=== PATIENT | female | born 1945 | race Caucasian/White ===

== ENCOUNTER → 2016-09-29 | Outpatient (CLI) | payer MEDICARE ==
[2016-04-13 10:00] VITALS: BP 111/68
[~2016-09-29] MED LIST: ALBUTEROL SULFATE 8GM INHALER. INH ONE; BARIUM SULFATE 0.1% 450 ML SUSP PO ONE; BIFI4CAP PO; CALC500T27 PO; CEFP200T PO; CHOL100013 PO; CHOL500016 PO; FERR325T58 PO; FERR325T72 PO; GUAI12003 PO; INFL100V IV; LANS30CA PO; LISI-338 PO; LORA10TA3 PO; LOSA25TA4 PO; METH4TAB2 PO; RANI150T2 PO; VENTOLIN HFA18 GM INH; WARF6TAB PO
--- NOTE | 2016-09-29 11:59 | KCIC ---
PROCEDURE CT abdomen pelvis without contrast. HISTORY Crohn's. Abdominal pain. TECHNIQUE Helical CT imaging of the abdomen and pelvis is performed without IV or oral contrast. PQRS: One or more the following individualized dose reduction techniques were utilized for the study: 1. Automated exposure control. 2. Adjustment of the mA and/or kV according to patient size. 3. Use of iterative reconstruction technique. COMPARISON CT abdomen and pelvis without contrast February 10, 2015. FINDINGS Evaluation of solid organs and bowel is limited without oral and IV contrast, decreasing sensitivity for detection of pathology. Cardiac size normal. Mild mitral annular calcification. A few reticular nodular opacities are seen in the right middle lobe, stable. There are multiple sub 5 millimeter nodules in the bilateral lower lobes. These nodules are stable. Gallbladder likely surgically absent. The liver, spleen, pancreas, adrenal glands, and abdominal aortic caliber are normal. Atrophic left kidney. Multiple bilateral nonobstructing renal calculi. Two 10 millimeter calculi are seen in the right renal pelvis, unchanged. No ureteral calculus. No hydronephrosis. Multiple right renal cysts appear stable. Stomach unremarkable. No dilated small bowel. Several small bowel loops are fluid-filled. Short-segment rectosigmoid is underdistended or may be due to peristalsis, image 161. Descending colon is not well distended, limiting evaluation. 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 Enterocolic anastomosis at the proximal transverse colon. Ascending colon has been resected. No abdominal adenopathy or free fluid. Urinary bladder is normal. Uterus surgically absent. No pelvic free fluid. Unchanged bilateral L5 spondylolysis. Grade 2 anterolisthesis of L5 on S1. IMPRESSION 1. No acute abdominal or pelvic abnormality. 2. There are multiple sub 5 millimeter nodules in the bilateral lower lobes that are unchanged. Follow-up is recommended. 3. Atrophic left kidney. Multiple bilateral nonobstructing renal calculi. Right renal cysts. Electronically signed by: Francisco J Elias MD (Sep 29, 2016 11:58:03)
== END | disposition home or self-care (01) ==
LOC: KCIC CT 09:25
PROVIDERS: ATTEND Internal Medicine Gastroenterology
DX: R10.9 Unspecified abdominal pain (principal); Z87.19 Personal history of other diseases of the digestive system
CPT/HCPCS: 74176

== ENCOUNTER 2016-11-02 02:21 | Emergency (ER) | payer MEDICARE ==
[~2016-11-02] VITALS: Ht 165.1 cm; Wt 83.0 kg
[~2016-11-02 02:21] MED LIST changes: -ALBUTEROL SULFATE 8GM INHALER. INH ONE; -BARIUM SULFATE 0.1% 450 ML SUSP PO ONE
[2016-11-02] MEDS ORDERED: MORP15TA PO (04:37)
--- NOTE | 2016-11-02 04:37 | PHYS DOC ---
Past Medical History Past Medical History: Arthritis, Asthma, DVT, Other Additional Past Medical Histor: kidney stones; chrons; Past Surgical History: Cholecystectomy, Hysterectomy, Tonsillectomy, Tubal ligation, Other Additional Past Surgical Histo: bowel resections X 2 due to chrons; Alcohol Use: Rarely Drug Use: None Adult General Chief Complaint Chief Complaint: LOWER EXTREMITY SWELLING HPI HPI 70-year-old female presenting to the emergency department with right-sided leg pain. She reports it was initially in her calf and moved up to her groin. She has a history of DVTs and currently takes Coumadin. She has had a few episodes where she has not been taking Coumadin due to procedures. Onset 2-3 days. Location right leg. Duration intermittent. No alleviating factors. She denies any recent trauma. Review of systems is negative for chest pain shortness of breath nausea vomiting. All other review of systems is negative unless otherwise noted in history of present illness. Review of Systems Review of Systems SEE ABOVE. Allergies Allergies Allergies Coded Allergies Type Severity Reaction Last Updated Verified codeine Allergy Severe Shortness of Air 04/10/16 Yes oxycodone Allergy Severe soa 04/10/16 Yes Iodinated Contrast Media - Oral and Allergy Intermediate Rash 11/19/15 Yes Penicillins Allergy Intermediate rash 07/15/14 Yes Physical Exam Physical Exam Constitutional: Well developed, well nourished, no acute distress, non-toxic appearance. [] HENT: Normocephalic, atraumatic, bilateral external ears normal, oropharynx moist, no oral exudates, nose normal. [] Eyes: PERRLA, EOMI, conjunctiva normal, no discharge. [] Neck: Normal range of motion, no tenderness, supple, no stridor. [] Cardiovascular:Heart rate regular rhythm, no murmur [] Lungs & Thorax: Bilateral breath sounds clear to auscultation [] Abdomen: Bowel sounds normal, soft, no tenderness, no masses, no pulsatile masses. [] Skin: Warm, dry, no erythema, no rash. [] Back: No tenderness, no CVA tenderness. [] Extremities: The patient's right leg is warm and well perfused with a palpable pulse. Neurovascularly intact. Mild swelling of the right calf. Not erythematous. Mild tenderness in the venous system. Other extremities are nontender with normal range of motion. Neurologic: Alert and oriented X 3, normal motor function, normal sensory function, no focal deficits noted. [] Psychologic: Affect normal, judgement normal, mood normal. [] Current Patient Data Vital Signs Vital Signs Date Time Temp Pulse Resp B/P Pulse Ox O2 Delivery O2 Flow Rate FiO2 11/02/16 04:09 98.1 95 20 128/82 100 Room Air 98.1 EKG EKG [] Radiology/Procedures Radiology/Procedures [] Course & Med Decision Making Course & Med Decision Making Pertinent Labs and Imaging studies reviewed. (See chart for details) [] 62-year-old female presenting to the emergency department today with right leg pain. Blood work obtained. Ultrasound ordered. Possible small partial superficial femoral thrombus. Patient is already on warfarin. I recommended that the patient follow up with her primary care doctor to check her INR to ensure therapeutic regimen. Dragon Disclaimer Dragon Disclaimer This electronic medical record was generated, in whole or in part, using a voice recognition dictation system. Departure Departure Impression: Primary Impression: Right leg pain Disposition: HOME, SELF-CARE Condition: STABLE Referrals: KENZIE STERLING MD (PCP) Patient Instructions: Deep Vein Thrombosis Additional Instructions: Thank you for allowing us to participate in your care today. Followup with your primary care physician in 3 days if your symptoms do not improve. If you do not have a primary care provider you can ask for a list of our primary care providers. Return to the emergency department you have any new or concerning findings. This should be evaluated by the primary care physician and any necessary consulting services for continued management within a few days after discharge. Return to emergency room if you have any new or concerning symptoms including but not limited to fever, chills, nausea, vomiting, intractable pain, any new rashes, chest pain, shortness of air, uncontrolled bleeding, difficulty breathing, and/or vision loss. You may have been prescribed medication that can change in your level of thinking and ability to operate machinery. These medications include hydrocodone and Ativan. Also, Benadryl has been known to do this as well. Be sure to check with your pharmacist and ask if the medications you've prescribed can affect your level of consciousness. I recommend not operating heavy machinery or driving while on medication such as these. Scripts Morphine Sulfate 15 Mg Tablet1 Tab PO PRN Q6-8HRS PRN SEVERE PAIN #8 TAB Prov:NIMISHA GOODMAN MD 11/02/16 NIMISHA GOODMAN MD Nov 02, 2016 04:37
--- NOTE | 2016-11-02 04:58 | RAD ---
INDICATION: Leg swelling. History of deep vein thrombus. COMPARISON: None TECHNIQUE: Grayscale, color and spectral doppler ultrasound images are obtained through the right leg deep venous system. FINDINGS: Vascular flow is seen in the common femoral, popliteal and visualized calf veins. Partial thrombus of superficial femoral vein IMPRESSION: Small filling defect within the right superficial femoral vein with the majority of the vessel patent. This could be secondary to a small partial thrombus but is possible that this is old but cannot exclude small acute component without prior. Electronically signed by: Mario Quinteros (Nov 02, 2016 04:57:04)
[2016-11-02 05:00] VITALS: BP 105/54
== END 2016-11-02 05:23 | disposition home or self-care (01) ==
LOC: ER 02:21
DX: M79.604 Pain in right leg (principal); M19.90 Unspecified osteoarthritis, unspecified site; J45.909 Unspecified asthma, uncomplicated; K50.90 Crohn's disease, unspecified, without complications; Z86.718 Personal history of other venous thrombosis and embolism; Z87.442 Personal history of urinary calculi; Z90.49 Acquired absence of other specified parts of digestive tract; Z90.710 Acquired absence of both cervix and uterus; Z98.51 Tubal ligation status; Z98.890 Other specified postprocedural states; Z88.0 Allergy status to penicillin; Z88.5 Allergy status to narcotic agent; Z88.6 Allergy status to analgesic agent; Z91.041 Radiographic dye allergy status; Z79.01 Long term (current) use of anticoagulants
CPT/HCPCS: 93971; 99284-25

== ENCOUNTER 2016-11-10 14:34 | Inpatient (IN) | payer MEDICARE ==
[~2016-11-10] VITALS: Ht 165.1 cm; Wt 83.0 kg
[~2016-11-10 14:34] MED LIST changes: +MORP15TA PO
[2016-11-10] MEDS ORDERED: IV NORMAL SALINE 500ML BAG 500 ML IV ONE (15:15)
[2016-11-10 15:36] LABS: BASO % 0 % (0-3); EOS % 2 % (0-3); HEMATOCRIT 28.5 % (36.0-47.0); HEMOGLOBIN 9.2 g/dL (12.0-15.5); LYMPH # 2.4 x10^3/uL (1.0-4.8); LYMPH % 35 % (24-48); MEAN CORPUSCULAR HEMOGLOBIN 25 pg (25-35); MEAN CORPUSCULAR HGB CONC 32 g/dL (31-37); MEAN CORPUSCULAR VOLUME 78 fL (79-100); MONO % 7 % (0-9); NEUT % 57 % (31-73); PLATELET COUNT 343 x10^3/uL (140-400); RED BLOOD COUNT 3.68 x10^6/uL (3.50-5.40); RED CELL DISTRIBUTION WIDTH 15.1 % (11.5-14.5)
--- NOTE | 2016-11-10 15:47 | EKG ---
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
[2016-11-10 15:55] LABS: CALCIUM 8.5 mg/dL (8.5-10.1); CREATININE 2.2 mg/dL (0.6-1.0); GFR 22.2; POTASSIUM 4.5 mmol/L (3.5-5.1)
[2016-11-10 15:56] LABS: BILIRUBIN,URINE SMALL (NEG); GLUCOSE,URINE NEGATIVE (NEG); NITRITE,URINE NEGATIVE (NEG); PROTEIN,URINE NEGATIVE (NEG-TRACE)
[2016-11-10 16:01] LABS: ALBUMIN 2.8 g/dL (3.4-5.0); DIRECT BILIRUBIN 0.6 mg/dL (0.0-0.2); TOTAL BILIRUBIN 1.8 mg/dL (0.2-1.0); TOTAL PROTEIN 6.3 g/dL (6.4-8.2)
[2016-11-10 16:03] LABS: BACTERIA,URINE FEW /HPF (0-FEW); RBC,URINE >40 /HPF (0-2); SQUAMOUS EPITHELIAL CELL,UR MANY /LPF
--- NOTE | 2016-11-10 16:30 | PHYS DOC ---
Past Medical History Past Medical History: Arthritis, Asthma, DVT, Other Additional Past Medical Histor: kidney stones; chrons; Past Surgical History: Cholecystectomy, Hysterectomy, Tonsillectomy, Tubal ligation, Other Additional Past Surgical Histo: bowel resections X 2 due to chrons; Additional Information: quit 1997 Alcohol Use: Rarely Drug Use: None Adult General Chief Complaint Chief Complaint: ABDOMINAL PAIN HPI HPI 70-year-old female presenting to the emergency department today with abdominal pain that started yesterday. She describes it as a sharp pain that radiates around to the back. She describes it as a bandlike distribution. The pain is moderate and without alleviating factors. Associated with vomiting. She went to her doctor's office today who referred her here for further evaluation workup and care. She has a history of Crohn's disease and currently is being treated as an outpatient for partial small bowel obstruction including having a surgical consultation on Wednesday however over the past 24 hours her symptoms have gotten worse including vomiting fecal matter and worsening pain. She denies fevers or chills. Review of systems is negative for chest pain shortness of breath. Positive for nausea abdominal pain and vomitus. She denies blood in her stool. She is currently passing flatus. All other review of systems is negative unless otherwise noted in history of present illness. Review of Systems Review of Systems SEE ABOVE. Current Medications Current Medications Current Medications Medications (Trade) Dose Ordered Sig/Jazmin Start Time Stop Time Status Last Admin Dose Admin Sodium Chloride (Iv Sodium Chloride 0.9% 500ml Bag) 500 ml @ 500 mls/hr 1X ONCE 11/10/16 15:15 11/10/16 16:14 DC 11/10/16 15:46 500 MLS/HR Allergies Allergies Allergies Coded Allergies Type Severity Reaction Last Updated Verified codeine Allergy Severe Shortness of Air 04/10/16 Yes oxycodone Allergy Severe soa 04/10/16 Yes Iodinated Contrast Media - Oral and Allergy Intermediate Rash 11/19/15 Yes Penicillins Allergy Intermediate rash 07/15/14 Yes barium sulfate Allergy Intermediate hives 11/10/16 Yes Physical Exam Physical Exam Constitutional: Well developed, well nourished, no acute distress, non-toxic appearance. HENT: Normocephalic, atraumatic, bilateral external ears normal, oropharynx mildly dry, no oral exudates, nose normal. [] Eyes: PERRLA, EOMI, conjunctiva normal, no discharge. [] Neck: Normal range of motion, no tenderness, supple, no stridor. Cardiovascular:Heart rate regular rhythm, no murmur [] Lungs & Thorax: Bilateral breath sounds clear to auscultation Abdomen: Abdomen is soft and mildly distended. Mildly tympanic on percussion. Normal bowel sounds present. Mild tenderness without a focus. No rebound tenderness or guarding present. Skin: Warm, dry, no erythema, no rash. Back: No tenderness, no CVA tenderness. [] Extremities: No tenderness, no cyanosis, no clubbing, ROM intact, no edema. [] Neurologic: Alert and oriented X 3, normal motor function, normal sensory function, no focal deficits noted. Psychologic: Affect normal, judgement normal, mood normal. [] Current Patient Data Vital Signs Vital Signs Date Time Temp Pulse Resp B/P Pulse Ox O2 Delivery O2 Flow Rate FiO2 11/10/16 16:25 94 14 99/51 94 Room Air 11/10/16 14:44 97.7 97.7 Lab Values Laboratory Tests Test 11/10/16 15:25 11/10/16 15:30 White Blood Count 7.0x10^3/uL (4.0-11.0) Red Blood Count 3.68x10^6/uL (3.50-5.40) Hemoglobin 9.2g/dL (12.0-15.5) L Hematocrit 28.5% (36.0-47.0) L Mean Corpuscular Volume 78fL (79-100) L Mean Corpuscular Hemoglobin 25pg (25-35) Mean Corpuscular Hemoglobin Concent 32g/dL (31-37) Red Cell Distribution Width 15.1% (11.5-14.5) H Platelet Count 343x10^3/uL (140-400) Neutrophils (%) (Auto) 57% (31-73) Lymphocytes (%) (Auto) 35% (24-48) Monocytes (%) (Auto) 7% (0-9) Eosinophils (%) (Auto) 2% (0-3) Basophils (%) (Auto) 0% (0-3) Neutrophils # (Auto) 4.0x10^3uL (1.8-7.7) Lymphocytes # (Auto) 2.4x10^3/uL (1.0-4.8) Monocytes # (Auto) 0.5x10^3/uL (0.0-1.1) Eosinophils # (Auto) 0.1x10^3/uL (0.0-0.7) Basophils # (Auto) 0.0x10^3/uL (0.0-0.2) Sodium Level 140mmol/L (136-145) Potassium Level 4.5mmol/L (3.5-5.1) Chloride Level 105mmol/L (98-107) Carbon Dioxide Level 23mmol/L (21-32) Anion Gap 12 (6-14) Blood Urea Nitrogen 32mg/dL (7-20) H Creatinine 2.2mg/dL (0.6-1.0) H Estimated GFR (Cockcroft-Gault) 22.2 Glucose Level 108mg/dL (70-99) H Lactic Acid Level 1.0mmol/L (0.4-2.0) Calcium Level 8.5mg/dL (8.5-10.1) Total Bilirubin 1.8mg/dL (0.2-1.0) H Direct Bilirubin 0.6mg/dL (0.0-0.2) H Aspartate Amino Transferase (AST) 246U/L (15-37) H Alanine Aminotransferase (ALT) 319U/L (14-59) H Alkaline Phosphatase 583U/L (46-116) H Troponin I Quantitative < 0.017ng/mL (0.000-0.055) WX-Rmp-R-Type Natriuretic Peptide 231pg/mL (0-124) H Total Protein 6.3g/dL (6.4-8.2) L Albumin 2.8g/dL (3.4-5.0) L Lipase 477U/L (73-393) H Urine Collection Type Void Urine Color Dk yellow Urine Clarity Hazy Urine pH 5.0 Urine Specific Harrison 1.015 Urine Protein Negativemg/dL (NEG-TRACE) Urine Glucose (UA) Negativemg/dL (NEG) Urine Ketones (Stick) Tracemg/dL (NEG) Urine Blood Large (NEG) Urine Nitrite Negative (NEG) Urine Bilirubin Small (NEG) Urine Urobilinogen Dipstick 1.0mg/dL (0.2 mg/dL) Urine Leukocyte Esterase Small (NEG) Urine RBC >40/HPF (0-2) Urine WBC 1-4/HPF (0-4) Urine Squamous Epithelial Cells Many/LPF Urine Bacteria Few/HPF (0-FEW) Urine Hyaline Casts Occasional/HPF Urine Mucus Mod/LPF Laboratory Tests 11/10/16 15:25 Laboratory Tests 11/10/16 15:25 EKG EKG [] EKG shows sinus tachycardia. Not consistent with ischemia. Radiology/Procedures Radiology/Procedures [] Course & Med Decision Making Course & Med Decision Making Pertinent Labs and Imaging studies reviewed. (See chart for details) [] 62-year-old female presenting to the emergency department with signs and symptoms suggestive of a small bowel obstruction. Initially the patient's vital signs showed mild tachycardia. Clinically she had dry mucous membranes suggestive of dehydration from nausea and vomiting. IV established along with IV fluids given. Blood work obtained. CBC shows anemia. Urinalysis shows a contaminated specimen. Chemistry panel shows elevated creatinine AST is and alkaline phosphatase. Lactic acid within normal limits. CT the abdomen pelvis noncontrast was obtained. Elevated liver enzymes and elevated bilirubin with increased size of the common bile duct on CT. Patient is not febrile or jaundice. No evidence of stone obstructing the common bile duct. I discussed the case with Dr. Thibodeaux who agreed to consult on the patient. The patient was then admitted to her primary care doctor Dr. Quinteros for further evaluation workup and care. Dragon Disclaimer Dragon Disclaimer This electronic medical record was generated, in whole or in part, using a voice recognition dictation system. Departure Departure Impression: Primary Impression: Abdominal pain Additional Impressions: Transaminitis Elevated lipase Disposition: ADMITTED INPATIENT Admitting Physician: Jeffrey Quinteros Condition: IMPROVED Referrals: JEFFREY QUINTEROS MD (PCP) Problem Qualifiers Primary Impression: Abdominal pain Abdominal location: generalized Qualified Code: R10.84 - Generalized abdominal pain NIMISHA GOODMAN MD Nov 10, 2016 16:30
--- NOTE | 2016-11-10 16:33 | RAD ---
CT of the abdomen and pelvis with contrast, 11/10/2016: History: Abdominal pain and vomiting No IV contrast was administered due to the patient's given history of an iodine allergy. No oral contrast material was administered due to vomiting. Comparison is made to a study from 09/29/2016. The gallbladder is surgically absent. There is prominence of the central intrahepatic bile ducts and the common duct. The common bile duct measures 2 cm in width. The ducts appear to be more dilated than on 09/29/2016. No dense calculus is seen in the distal common bile duct. No pancreatic mass is evident. The spleen is of normal size. There are numerous bilateral intrarenal calculi. There is a prominent cluster within the right renal pelvis. The renal collecting systems and ureters are not dilated. Both kidneys are scarred and atrophic, more so on the left.. There is a cluster of low density lesions arising from the lateral aspect of the right kidney compatible with cysts. There is moderate aortoiliac calcific plaquing without evidence of aneurysm. No abdominal or pelvic adenopathy is seen. The stomach and duodenum are not dilated. There are segments of other small bowel loops which demonstrate mild dilatation. A focal point of obstruction is not seen. There is a moderate amount of fluid and stool in the colon in a nonspecific pattern. There appears to have been resection of a portion of the right colon. No free fluid or free air is evident in the abdomen or pelvis. IMPRESSION: 1. Status post cholecystectomy. 2. Dilatation of the common bile duct and intrahepatic bile ducts greater than that seen on 09/29/2016. Is there laboratory evidence of active biliary tract obstruction? 3. Numerous bilateral nonobstructing intrarenal calculi. 4. Mild dilatation of several small bowel segments likely related to the history of Crohn's disease. No definite bowel obstruction is seen. PQRS Compliance Statement: One or more of the following individualized dose reduction techniques were utilized for this examination: 1. Automated exposure control 2. Adjustment of the mA and/or kV according to patient size 3. Use of iterative reconstruction technique
[2016-11-10] MEDS ORDERED: ONDANSETRON PF 4 MG/2 ML VIAL. IV PRN (16:45)
[2016-11-10] MEDS: IV NORMAL SALINE 1000ML BAG 1,000 ML IV SCH (17:58)
[2016-11-10 18:37] VITALS: BP 98/50
--- NOTE | 2016-11-10 18:37 | PDOC2 ---
CONSULT Date of Consult Date of Consult DATE: 11/10/16 TIME: 18:36 Reason for Consult Reason for Consult: Abd pain/vomiting/crohns disease Current Problem List Problem List Problems Medical Problems: (1) Abdominal pain Status: Acute Current Medications Current Medications Current Medications Sodium Chloride (Iv Sodium Chloride 0.9% 500ml Bag) 500 ml @ 500 mls/hr 1X ONCE IV Last administered on 11/10/16 15:46; Start 11/10/16 at 15:15; Stop at 16:14; Status DC Ondansetron HCl 4 mg 4 mg PRN Q8HRS PRN IV NAUSEA/VOMITING; Start 11/10/16 at 16:45; Stop 11/11/16 at 16:44 Sodium Chloride (Iv Sodium Chloride 0.9% 1000ml Bag) 1,000 ml @ 125 mls/hr Q8H IV Last administered on 11/10/16 17:58; Start 11/10/16 at 17:00; Stop at 16:59 Active Scripts Active Morphine Sulfate 15 Mg Tablet 1 Tab PO PRN Q6-8HRS PRN Feosol (Ferrous Sulfate) 325 Mg Tablet 325 Mg PO BIDWMEALS Reported Losartan Potassium 25 Mg Tablet 25 Mg PO DAILY Calcium (Calcium Carbonate) 500 Mg Tablet 500 Mg PO DAILY Vitamin D3 (Cholecalciferol (Vitamin D3)) 5,000 Unit Tablet 1 Tab PO DAILY Ventolin Hfa Inhaler (Albuterol Sulfate) 18 Gm Hfa.aer.ad 2 Puff INH QID PRN Remicade (Infliximab) 100 Mg Vial 100 Mg IV UD TAKES EVERY OTHER MONTH Loratadine 10 Mg Tablet 1 Tab PO DAILY Ranitidine Hcl 150 Mg Tablet 1 Tab PO BID PRN Lansoprazole 30 Mg Capsule.dr 1 Cap PO DAILY Coumadin (Warfarin Sodium) 6 Mg Tablet 1 Tab PO DAILY Allergies Allergies: Coded Allergies: codeine (Verified Allergy, Severe, Shortness of Air, 04/10/16) tolerates morphine and hydrocodone oxycodone (Verified Allergy, Severe, soa, 04/10/16) tolerates morphine and hydrocodone Iodinated Contrast Media - Oral and (Verified Allergy, Intermediate, Rash , 11/19/15) Penicillins (Verified Allergy, Intermediate, rash, 07/15/14) barium sulfate (Verified Allergy, Intermediate, hives, 11/10/16) Vitals VITALS Vital Signs Date Time Temp Pulse Resp B/P Pulse Ox O2 Delivery O2 Flow Rate FiO2 11/10/16 18:16 Room Air 11/10/16 17:25 90 15 98/50 91 11/10/16 14:44 97.7 97.7 Labs Labs Laboratory Tests Test 11/10/16 15:25 11/10/16 15:30 White Blood Count 7.0x10^3/uL (4.0-11.0) Red Blood Count 3.68x10^6/uL (3.50-5.40) Hemoglobin 9.2g/dL (12.0-15.5) Hematocrit 28.5% (36.0-47.0) Mean Corpuscular Volume 78fL (79-100) Mean Corpuscular Hemoglobin 25pg (25-35) Mean Corpuscular Hemoglobin Concent 32g/dL (31-37) Red Cell Distribution Width 15.1% (11.5-14.5) Platelet Count 343x10^3/uL (140-400) Neutrophils (%) (Auto) 57% (31-73) Lymphocytes (%) (Auto) 35% (24-48) Monocytes (%) (Auto) 7% (0-9) Eosinophils (%) (Auto) 2% (0-3) Basophils (%) (Auto) 0% (0-3) Neutrophils # (Auto) 4.0x10^3uL (1.8-7.7) Lymphocytes # (Auto) 2.4x10^3/uL (1.0-4.8) Monocytes # (Auto) 0.5x10^3/uL (0.0-1.1) Eosinophils # (Auto) 0.1x10^3/uL (0.0-0.7) Basophils # (Auto) 0.0x10^3/uL (0.0-0.2) Sodium Level 140mmol/L (136-145) Potassium Level 4.5mmol/L (3.5-5.1) Chloride Level 105mmol/L (98-107) Carbon Dioxide Level 23mmol/L (21-32) Anion Gap 12 (6-14) Blood Urea Nitrogen 32mg/dL (7-20) Creatinine 2.2mg/dL (0.6-1.0) Estimated GFR (Cockcroft-Gault) 22.2 Glucose Level 108mg/dL (70-99) Lactic Acid Level 1.0mmol/L (0.4-2.0) Calcium Level 8.5mg/dL (8.5-10.1) Total Bilirubin 1.8mg/dL (0.2-1.0) Direct Bilirubin 0.6mg/dL (0.0-0.2) Aspartate Amino Transf (AST/SGOT) 246U/L (15-37) Alanine Aminotransferase (ALT/SGPT) 319U/L (14-59) Alkaline Phosphatase 583U/L (46-116) Troponin I Quantitative < 0.017ng/mL (0.000-0.055) YC-Bdl-V-Type Natriuretic Peptide 231pg/mL (0-124) Total Protein 6.3g/dL (6.4-8.2) Albumin 2.8g/dL (3.4-5.0) Lipase 477U/L (73-393) Urine Collection Type Void Urine Color Dk yellow Urine Clarity Hazy Urine pH 5.0 Urine Specific [place] 1.015 Urine Protein Negativemg/dL (NEG-TRACE) Urine Glucose (UA) Negativemg/dL (NEG) Urine Ketones (Stick) Tracemg/dL (NEG) Urine Blood Large (NEG) Urine Nitrite Negative (NEG) Urine Bilirubin Small (NEG) Urine Urobilinogen Dipstick 1.0mg/dL (0.2 mg/dL) Urine Leukocyte Esterase Small (NEG) Urine RBC >40/HPF (0-2) Urine WBC 1-4/HPF (0-4) Urine Squamous Epithelial Cells Many/LPF Urine Bacteria Few/HPF (0-FEW) Urine Hyaline Casts Occasional/HPF Urine Mucus Mod/LPF Laboratory Tests Test 11/10/16 15:25 11/10/16 15:30 White Blood Count 7.0x10^3/uL (4.0-11.0) Red Blood Count 3.68x10^6/uL (3.50-5.40) Hemoglobin 9.2g/dL (12.0-15.5) Hematocrit 28.5% (36.0-47.0) Mean Corpuscular Volume 78fL (79-100) Mean Corpuscular Hemoglobin 25pg (25-35) Mean Corpuscular Hemoglobin Concent 32g/dL (31-37) Red Cell Distribution Width 15.1% (11.5-14.5) Platelet Count 343x10^3/uL (140-400) Neutrophils (%) (Auto) 57% (31-73) Lymphocytes (%) (Auto) 35% (24-48) Monocytes (%) (Auto) 7% (0-9) Eosinophils (%) (Auto) 2% (0-3) Basophils (%) (Auto) 0% (0-3) Neutrophils # (Auto) 4.0x10^3uL (1.8-7.7) Lymphocytes # (Auto) 2.4x10^3/uL (1.0-4.8) Monocytes # (Auto) 0.5x10^3/uL (0.0-1.1) Eosinophils # (Auto) 0.1x10^3/uL (0.0-0.7) Basophils # (Auto) 0.0x10^3/uL (0.0-0.2) Sodium Level 140mmol/L (136-145) Potassium Level 4.5mmol/L (3.5-5.1) Chloride Level 105mmol/L (98-107) Carbon Dioxide Level 23mmol/L (21-32) Anion Gap 12 (6-14) Blood Urea Nitrogen 32mg/dL (7-20) Creatinine 2.2mg/dL (0.6-1.0) Estimated GFR (Cockcroft-Gault) 22.2 Glucose Level 108mg/dL (70-99) Lactic Acid Level 1.0mmol/L (0.4-2.0) Calcium Level 8.5mg/dL (8.5-10.1) Total Bilirubin 1.8mg/dL (0.2-1.0) Direct Bilirubin 0.6mg/dL (0.0-0.2) Aspartate Amino Transf (AST/SGOT) 246U/L (15-37) Alanine Aminotransferase (ALT/SGPT) 319U/L (14-59) Alkaline Phosphatase 583U/L (46-116) Troponin I Quantitative < 0.017ng/mL (0.000-0.055) KT-Qjs-M-Type Natriuretic Peptide 231pg/mL (0-124) Total Protein 6.3g/dL (6.4-8.2) Albumin 2.8g/dL (3.4-5.0) Lipase 477U/L (73-393) Urine Collection Type Void Urine Color Dk yellow Urine Clarity Hazy Urine pH 5.0 Urine Specific [place] 1.015 Urine Protein Negativemg/dL (NEG-TRACE) Urine Glucose (UA) Negativemg/dL (NEG) Urine Ketones (Stick) Tracemg/dL (NEG) Urine Blood Large (NEG) Urine Nitrite Negative (NEG) Urine Bilirubin Small (NEG) Urine Urobilinogen Dipstick 1.0mg/dL (0.2 mg/dL) Urine Leukocyte Esterase Small (NEG) Urine RBC >40/HPF (0-2) Urine WBC 1-4/HPF (0-4) Urine Squamous Epithelial Cells Many/LPF Urine Bacteria Few/HPF (0-FEW) Urine Hyaline Casts Occasional/HPF Urine Mucus Mod/LPF Assessment/Plan Assessment/Plan Abd pain- with hx of Crohns s/p resections x 2 and apparent stricture on recent colonoscopy, 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 Contrast allergy to iodine and barium makes imaging difficult Plan gut rest/iv fluids serial [facility] surgical consult Full note dictated TAMIKA HOBBS MD Nov 10, 2016 18:37
[2016-11-10 19:00] VITALS: BP 107/60
--- NOTE | 2016-11-10 19:35 | ACF ---
Admission Forms Criteria ABDOMINAL PAIN Clinical Indications for Admission to Inpatient Care (Place 'X' for any and all applicable criteria): Admission is indicated for ANY ONE of the following(1)(2)(3)(4)(5): [X]I. Inpatient admission required rather than observation care (Also use Abdominal Pain: Observation Care, as appropriate) because of ANY ONE of the following: [ ]a) Severe pain requiring acute inpatient management [ ]b) Identification of etiology/finding that requires inpatient care (eg, aortic dissection, free air) [ ]c) Absent bowel sounds with complete ileus(6) [ ]d) Suspected toxic megacolon [ ]e) Severe electrolyte abnormalities requiring inpatient care [ ]f) High fever or infection requiring inpatient admission as indicated by ANY ONE of following(7)(8): [ ] i) Appropriate outpatient or observational care antimicrobial treatment unavailable, not effective, or not feasible [ ] ii) Documented bacteremia [ ] iii) Temperature > 104.9 degrees F (oral) [ ] iv) T >103.1 F (oral) or < 96.8 F(rectal) that does not respond to all emergency treatment measures [ ]g) Signs of intestinal obstruction [B] [X]h) Hemodynamic instability [ ]i) IV fluid to replace significant ongoing losses (greater than 3 L/m2 per day) (12)(13) [ ]j) Percutaneous or open drainage (eg, abscess, biliary tract ) procedures [ ]k) Parenteral nutrition regimen that must be implemented on inpatient basis [ ]l) Other condition,treatment or monitoring requiring inpatient admission. [ ]II. Peritoneal signs present [ ]III. Surgery needed that cannot be performed on an ambulatory basis. [ ]IV. Evaluation requires patient to not eat or drink for extended period ( eg, more than 24 hours). [ ]V. Contraindications and/or Inappropriate clinical situations for Observational Care in patients with abdominal pain, when ANY ONE of the following is required: [ ]a) Thorough evaluation is required to prevent catastrophic events due to delays in diagnosing (e.g.Mesenteric ischemia) 1,3 [ ]b) Patient with severe pathology or with chronic symptoms unlikely to improve in the ED stay (3) [X]. General contraindications and/or Inappropriate clinical situations for Observational Care in patients with abdominal pain, when ANY ONE of the following is required: [X]a) Prediction of prolongation of LOS based on ANY ONE of the following may be considered as a contraindication for observational care 2, 3, 4, 5, 6, 7, 8, 9, 10, 11 [X]i) Age > 65 yrs. [ ]ii) Patient arriving by ambulance [ ]iii) Patient with high acuity [ ]iv) Patient requiring vital sign monitoring [ ]v) Patient on IV medication [ ]b) Systolic blood pressures 180mmHg 3,12 [ ]c) Patient with altered mental status including delirium and other alteration of consciousness, (3) [ ]d) Patient whose discharge disposition will be to a half-way home or rehabilitation home should not be managed in Emergency Department Observation Unit. CMS rule requires 3 days hospital stay before such placement.3,13 [ ]e) Patient with failure to thrive due to broad array of etiologies 3,16,17 [ ]f) Inability to ambulate 3,14 Extended stay beyond goal length of stay may be needed for(2)(3): [ ]a) Persistent abdominal pain with suspected intra-abdominal process [ ]b) Diagnosed condition requiring continued stay (e.g., pancreatitis, complicated diverticulitis) [ ]c) Surgery (e.g., colectomy) The original [facility] content created by [employer] has been revised. The portions of the content which have been revised are identified through the use of italic text or in bold, and [facility] has neither reviewed nor approved the modified material.All other unmodified content is copyright [employer]. Please see references footnoted in the original [facility] edition 2016 Admission Criteria Met?: Yes JESU BURNS Nov 10, 2016 19:35
[2016-11-10] MEDS ORDERED: MULT1TAB52 PO (21:58)
[2016-11-10] MEDS ORDERED: PROAIR HFA8.5 GM INH (21:58)
[2016-11-10] MEDS ORDERED: LANS30CA PO (21:58)
[2016-11-10] MEDS ORDERED: CYCL10TA2 PO (21:58)
[2016-11-10] MEDS ORDERED: MORPHINE SULFATE 4 MG/ML DISP.SYRIN. IV PRN (22:30)
[2016-11-10 23:00] VITALS: BP 95/40
[2016-11-11] MEDS: IV NORMAL SALINE 1000ML BAG 1,000 ML IV SCH (01:47)
[2016-11-11 03:00] VITALS: BP 96/58
[2016-11-11 06:25] LABS: BASO % 0 % (0-3); EOS % 5 % (0-3); HEMATOCRIT 24.8 % (36.0-47.0); HEMOGLOBIN 7.7 g/dL (12.0-15.5); LYMPH # 1.6 x10^3/uL (1.0-4.8); LYMPH % 47 % (24-48); MEAN CORPUSCULAR HEMOGLOBIN 25 pg (25-35); MEAN CORPUSCULAR HGB CONC 31 g/dL (31-37); MEAN CORPUSCULAR VOLUME 80 fL (79-100); MONO % 9 % (0-9); NEUT % 39 % (31-73); PLATELET COUNT 236 x10^3/uL (140-400); RED CELL DISTRIBUTION WIDTH 14.7 % (11.5-14.5); WHITE BLOOD COUNT 3.5 x10^3/uL (4.0-11.0)
[2016-11-11 06:49] LABS: ALBUMIN 2.3 g/dL (3.4-5.0); ALBUMIN/GLOBULIN RATIO 0.8 (1.0-1.7); CALCIUM 8.1 mg/dL (8.5-10.1); CREATININE 1.8 mg/dL (0.6-1.0); POTASSIUM 4.2 mmol/L (3.5-5.1); TOTAL BILIRUBIN 1.4 mg/dL (0.2-1.0); TOTAL PROTEIN 5.2 g/dL (6.4-8.2)
[2016-11-11 07:00] VITALS: BP 104/61
[2016-11-11] MEDS ORDERED: POTASSIUM CL 20MEQ D5-0.45NACL 1,000 ML IV PRN (08:15)
--- NOTE | 2016-11-11 08:25 | PDOC ---
Provider Note Provider Note [id number] KENZIE STERLING MD Nov 11, 2016 08:25
[2016-11-11] MEDS: POTASSIUM CL 20MEQ D5-0.45NACL 1,000 ML IV SCH ×2 (09:12→18:15)
[2016-11-11] MEDS: ENOXAPARIN 40 MG/0.4 ML SYRINGE. SQ SCH (09:13)
[2016-11-11] MEDS: POLYVINYL ALCOHOL 1.4% OPHTH SOLUTION 15ML BOTTLE. OU PRN (09:18)
[2016-11-11 09:37] LABS: INR 2.2 (0.8-1.1); PROTHROMBIN TIME PATIENT 22.9 SEC (11.7-14.0)
--- NOTE | 2016-11-11 09:49 | PDOC2 ---
DEAN GIMENEZ [facility] 11/11/16 0949: CONSULT Date of Consult Date of Consult DATE: 11/11/16 TIME: 09:42 Reason for Consult Reason for Consult: Crohns Referring Physician Referring Physician: Dr Quinteros Identification/Chief Complaint Chief Complaint abdominal pain Source Source: Chart review, Patient History of Present Illness Reason for Visit: Month history of abdominal pain, distention--hx of Crohns, has had 2 resections many years ago, on Remicade Underwent colonoscopy [address] Gonzalez and found to have a colonic stricture, was to meet with him Wednesday to arrange surgical evaluation. Wednesday night developed pain and emesis. She has been having constipation with pencil like stools(only going every few days instead of multiple times a day)--primary sent her for evaluation Past Medical History Cardiovascular: HTN Pulmonary: Asthma GI: Other (crohns) Heme/Onc: Other (dvt) Renal/: Other (kidney stones ) Past Surgical History Past Surgical History: Appendectomy, Cholecystectomy, , Hysterectomy, Colon Resection (x2) Family History Family History: Hypertension, Other (crohns ) Social History Quit (1997) ALCOHOL: social Drugs: None Current Problem List Problem List Problems Medical Problems: (1) Abdominal pain Status: Acute (2) Elevated lipase Status: Acute (3) Transaminitis Status: Acute Current Medications Current Medications Current Medications Sodium Chloride (Iv Sodium Chloride 0.9% 500ml Bag) 500 ml @ 500 mls/hr 1X ONCE IV Last administered on 11/10/16 15:46; Start 11/10/16 at 15:15; Stop at 16:14; Status DC Ondansetron HCl 4 mg 4 mg PRN Q8HRS PRN IV NAUSEA/VOMITING; Start 11/10/16 at 16:45; Stop 11/11/16 at 16:44 Sodium Chloride (Iv Sodium Chloride 0.9% 1000ml Bag) 1,000 ml @ 125 mls/hr Q8H IV Last administered on 11/11/16 01:47; Start 11/10/16 at 17:00; Stop at 08:35; Status DC Artificial Tears (Artificial Tears) 1 drop PRN Q15MIN PRN OU DRY EYE Last administered on 11/11/16 09:18; Start 11/10/16 at 22:30 Morphine Sulfate 3 mg 3 mg PRN Q3HRS PRN IV SEVERE PAIN; Start 11/10/16 at 22: 30 Potassium Chloride/Dextrose/ Sod Cl (KCl 20 Meq In D5W-1/2 NS) 1,000 ml @ 125 mls/hr Q8H PRN IV .; Start 11/11/16 at 08:15; Stop 11/11/16 at 08:35; Status DC Enoxaparin Sodium 40 mg 40 mg Q24H SQ Last administered on 11/11/16 09:13; Start 11/11/16 at 08:30 Potassium Chloride/Dextrose/ Sod Cl (KCl 20 Meq In D5W-1/2 NS) 1,000 ml @ 125 mls/hr Q8H IV Last administered on 11/11/16 09:12; Start 11/11/16 at 09:00 Active Scripts Active Reported Multivitamins (Multivitamin) 1 Each Tablet 1 Tab PO DAILY Cyclobenzaprine Hcl 10 Mg Tablet 1 Tab PO TID PRN Lansoprazole 30 Mg Capsule. 1 Cap PO DAILY Proair Hfa Inhaler (Albuterol Sulfate) 8.5 Gm Hfa.aer.ad 1 Puff INH PRN Q6HRS PRN Losartan Potassium 25 Mg Tablet 25 Mg PO DAILY Vitamin D3 (Cholecalciferol (Vitamin D3)) 5,000 Unit Tablet 1 Tab PO DAILY Remicade (Infliximab) 100 Mg Vial 100 Mg IV UD pt gets infusion every [address] Hoover's office, next dose is December 01, 2016 Lansoprazole 30 Mg Capsule. 1 Cap PO DAILY Coumadin (Warfarin Sodium) 6 Mg Tablet 1 Tab PO DAILY Allergies Allergies: Coded Allergies: codeine (Verified Allergy, Severe, Shortness of Air, 04/10/16) tolerates morphine and hydrocodone oxycodone (Verified Allergy, Severe, soa, 04/10/16) tolerates morphine and hydrocodone Iodinated Contrast Media - Oral and (Verified Allergy, Intermediate, Rash , 11/19/15) Penicillins (Verified Allergy, Intermediate, rash, 07/15/14) barium sulfate (Verified Allergy, Intermediate, hives, 11/10/16) ROS General: No: Chills, Other (fevers) PSYCHOLOGICAL ROS: No: Anxiety, Depression Eyes: No Blurry vision, No Double vision HEENT: No: Heacaches, Sore Throat Hematological and Lymphatic: YES: Bleeding Problems, Blood Clots Respiratory: No: Cough, Shortness of breath Cardiovascular: No Chest Pain, No Palpitations Gastrointestinal: Yes Other (see hpi) Genitourinary: No Dysuria, No Hematuria Musculoskeletal: No Joint Pain, No Muscle Pain Neurological: No Impaired Coord/balance, No Numbness/Tingling Skin: No Pruritus, No Rash Physical Exam General: Alert, Oriented X3, Cooperative, No acute distress HEENT: PERRLA, Mucous membr. moist/pink Lungs: Clear to auscultation, Normal air movement Heart: Regular rate, Normal S1, Normal S2, No murmurs Abdomen: Soft, Other (NTTP, ND, midline scar ) Extremities: No clubbing, No cyanosis Skin: No rashes, No breakdown Neuro: Normal gait, Normal speech Psych/Mental Status: Mental status NL, Mood NL Vitals VITALS Vital Signs Date Time Temp Pulse Resp B/P Pulse Ox O2 Delivery O2 Flow Rate FiO2 11/11/16 07:00 97.7 85 20 104/61 95 Room Air 97.7 Labs Labs Laboratory Tests Test 11/10/16 15:25 11/10/16 15:30 11/11/16 05:55 11/11/16 08:40 White Blood Count 7.0x10^3/uL (4.0-11.0) 3.5x10^3/uL (4.0-11.0) Red Blood Count 3.68x10^6/uL (3.50-5.40) 3.10x10^6/uL (3.50-5.40) Hemoglobin 9.2g/dL (12.0-15.5) 7.7g/dL (12.0-15.5) Hematocrit 28.5% (36.0-47.0) 24.8% (36.0-47.0) Mean Corpuscular Volume 78fL (79-100) 80fL (79-100) Mean Corpuscular Hemoglobin 25pg (25-35) 25pg (25-35) Mean Corpuscular Hemoglobin Concent 32g/dL (31-37) 31g/dL (31-37) Red Cell Distribution Width 15.1% (11.5-14.5) 14.7% (11.5-14.5) Platelet Count 343x10^3/uL (140-400) 236x10^3/uL (140-400) Neutrophils (%) (Auto) 57% (31-73) 39% (31-73) Lymphocytes (%) (Auto) 35% (24-48) 47% (24-48) Monocytes (%) (Auto) 7% (0-9) 9% (0-9) Eosinophils (%) (Auto) 2% (0-3) 5% (0-3) Basophils (%) (Auto) 0% (0-3) 0% (0-3) Neutrophils # (Auto) 4.0x10^3uL (1.8-7.7) 1.4x10^3uL (1.8-7.7) Lymphocytes # (Auto) 2.4x10^3/uL (1.0-4.8) 1.6x10^3/uL (1.0-4.8) Monocytes # (Auto) 0.5x10^3/uL (0.0-1.1) 0.3x10^3/uL (0.0-1.1) Eosinophils # (Auto) 0.1x10^3/uL (0.0-0.7) 0.2x10^3/uL (0.0-0.7) Basophils # (Auto) 0.0x10^3/uL (0.0-0.2) 0.0x10^3/uL (0.0-0.2) Sodium Level 140mmol/L (136-145) 142mmol/L (136-145) Potassium Level 4.5mmol/L (3.5-5.1) 4.2mmol/L (3.5-5.1) Chloride Level 105mmol/L (98-107) 111mmol/L (98-107) Carbon Dioxide Level 23mmol/L (21-32) 22mmol/L (21-32) Anion Gap 12 (6-14) 9 (6-14) Blood Urea Nitrogen 32mg/dL (7-20) 25mg/dL (7-20) Creatinine 2.2mg/dL (0.6-1.0) 1.8mg/dL (0.6-1.0) Estimated GFR (Cockcroft-Gault) 22.2 28.0 Glucose Level 108mg/dL (70-99) 85mg/dL (70-99) Lactic Acid Level 1.0mmol/L (0.4-2.0) Calcium Level 8.5mg/dL (8.5-10.1) 8.1mg/dL (8.5-10.1) Total Bilirubin 1.8mg/dL (0.2-1.0) 1.4mg/dL (0.2-1.0) Direct Bilirubin 0.6mg/dL (0.0-0.2) Aspartate Amino Transf (AST/SGOT) 246U/L (15-37) 139U/L (15-37) Alanine Aminotransferase (ALT/SGPT) 319U/L (14-59) 232U/L (14-59) Alkaline Phosphatase 583U/L (46-116) 474U/L (46-116) Troponin I Quantitative < 0.017ng/mL (0.000-0.055) MQ-Onv-R-Type Natriuretic Peptide 231pg/mL (0-124) Total Protein 6.3g/dL (6.4-8.2) 5.2g/dL (6.4-8.2) Albumin 2.8g/dL (3.4-5.0) 2.3g/dL (3.4-5.0) Lipase 477U/L (73-393) 104U/L (73-393) Urine Collection Type Void Urine Color Dk yellow Urine Clarity Hazy Urine pH 5.0 Urine Specific [place] 1.015 Urine Protein Negativemg/dL (NEG-TRACE) Urine Glucose (UA) Negativemg/dL (NEG) Urine Ketones (Stick) Tracemg/dL (NEG) Urine Blood Large (NEG) Urine Nitrite Negative (NEG) Urine Bilirubin Small (NEG) Urine Urobilinogen Dipstick 1.0mg/dL (0.2 mg/dL) Urine Leukocyte Esterase Small (NEG) Urine RBC >40/HPF (0-2) Urine WBC 1-4/HPF (0-4) Urine Squamous Epithelial Cells Many/LPF Urine Bacteria Few/HPF (0-FEW) Urine Hyaline Casts Occasional/HPF Urine Mucus Mod/LPF BUN/Creatinine Ratio 14 (6-20) Albumin/Globulin Ratio 0.8 (1.0-1.7) Amylase Level 58U/L (25-115) Prothrombin Time 22.9SEC (11.7-14.0) Prothromb Time International Ratio 2.2 (0.8-1.1) Laboratory Tests Test 11/10/16 15:25 11/10/16 15:30 11/11/16 05:55 11/11/16 08:40 White Blood Count 7.0x10^3/uL (4.0-11.0) 3.5x10^3/uL (4.0-11.0) Red Blood Count 3.68x10^6/uL (3.50-5.40) 3.10x10^6/uL (3.50-5.40) Hemoglobin 9.2g/dL (12.0-15.5) 7.7g/dL (12.0-15.5) Hematocrit 28.5% (36.0-47.0) 24.8% (36.0-47.0) Mean Corpuscular Volume 78fL (79-100) 80fL (79-100) Mean Corpuscular Hemoglobin 25pg (25-35) 25pg (25-35) Mean Corpuscular Hemoglobin Concent 32g/dL (31-37) 31g/dL (31-37) Red Cell Distribution Width 15.1% (11.5-14.5) 14.7% (11.5-14.5) Platelet Count 343x10^3/uL (140-400) 236x10^3/uL (140-400) Neutrophils (%) (Auto) 57% (31-73) 39% (31-73) Lymphocytes (%) (Auto) 35% (24-48) 47% (24-48) Monocytes (%) (Auto) 7% (0-9) 9% (0-9) Eosinophils (%) (Auto) 2% (0-3) 5% (0-3) Basophils (%) (Auto) 0% (0-3) 0% (0-3) Neutrophils # (Auto) 4.0x10^3uL (1.8-7.7) 1.4x10^3uL (1.8-7.7) Lymphocytes # (Auto) 2.4x10^3/uL (1.0-4.8) 1.6x10^3/uL (1.0-4.8) Monocytes # (Auto) 0.5x10^3/uL (0.0-1.1) 0.3x10^3/uL (0.0-1.1) Eosinophils # (Auto) 0.1x10^3/uL (0.0-0.7) 0.2x10^3/uL (0.0-0.7) Basophils # (Auto) 0.0x10^3/uL (0.0-0.2) 0.0x10^3/uL (0.0-0.2) Sodium Level 140mmol/L (136-145) 142mmol/L (136-145) Potassium Level 4.5mmol/L (3.5-5.1) 4.2mmol/L (3.5-5.1) Chloride Level 105mmol/L (98-107) 111mmol/L (98-107) Carbon Dioxide Level 23mmol/L (21-32) 22mmol/L (21-32) Anion Gap 12 (6-14) 9 (6-14) Blood Urea Nitrogen 32mg/dL (7-20) 25mg/dL (7-20) Creatinine 2.2mg/dL (0.6-1.0) 1.8mg/dL (0.6-1.0) Estimated GFR (Cockcroft-Gault) 22.2 28.0 Glucose Level 108mg/dL (70-99) 85mg/dL (70-99) Lactic Acid Level 1.0mmol/L (0.4-2.0) Calcium Level 8.5mg/dL (8.5-10.1) 8.1mg/dL (8.5-10.1) Total Bilirubin 1.8mg/dL (0.2-1.0) 1.4mg/dL (0.2-1.0) Direct Bilirubin 0.6mg/dL (0.0-0.2) Aspartate Amino Transf (AST/SGOT) 246U/L (15-37) 139U/L (15-37) Alanine Aminotransferase (ALT/SGPT) 319U/L (14-59) 232U/L (14-59) Alkaline Phosphatase 583U/L (46-116) 474U/L (46-116) Troponin I Quantitative < 0.017ng/mL (0.000-0.055) FS-Yug-J-Type Natriuretic Peptide 231pg/mL (0-124) Total Protein 6.3g/dL (6.4-8.2) 5.2g/dL (6.4-8.2) Albumin 2.8g/dL (3.4-5.0) 2.3g/dL (3.4-5.0) Lipase 477U/L (73-393) 104U/L (73-393) Urine Collection Type Void Urine Color Dk yellow Urine Clarity Hazy Urine pH 5.0 Urine Specific [place] 1.015 Urine Protein Negativemg/dL (NEG-TRACE) Urine Glucose (UA) Negativemg/dL (NEG) Urine Ketones (Stick) Tracemg/dL (NEG) Urine Blood Large (NEG) Urine Nitrite Negative (NEG) Urine Bilirubin Small (NEG) Urine Urobilinogen Dipstick 1.0mg/dL (0.2 mg/dL) Urine Leukocyte Esterase Small (NEG) Urine RBC >40/HPF (0-2) Urine WBC 1-4/HPF (0-4) Urine Squamous Epithelial Cells Many/LPF Urine Bacteria Few/HPF (0-FEW) Urine Hyaline Casts Occasional/HPF Urine Mucus Mod/LPF BUN/Creatinine Ratio 14 (6-20) Albumin/Globulin Ratio 0.8 (1.0-1.7) Amylase Level 58U/L (25-115) Prothrombin Time 22.9SEC (11.7-14.0) Prothromb Time International Ratio 2.2 (0.8-1.1) Assessment/Plan Assessment/Plan crohns, stricture on colonoscopy now with obstructive symptoms transaminitis, improving coagulopathy, warfarin induced, INR 2.2 , hx of DVT INR correction will review with Dr Ana PEDROZA,RANJANA Fenton MD 11/11/16 2010: CONSULT Allergies Allergies: Coded Allergies: codeine (Verified Allergy, Severe, Shortness of Air, 04/10/16) tolerates morphine and hydrocodone oxycodone (Verified Allergy, Severe, soa, 04/10/16) tolerates morphine and hydrocodone Iodinated Contrast Media - Oral and (Verified Allergy, Intermediate, Rash , 11/19/15) Penicillins (Verified Allergy, Intermediate, rash, 07/15/14) barium sulfate (Verified Allergy, Intermediate, hives, 11/10/16) Assessment/Plan Assessment/Plan Pt seen and examined. Agree with Ms. Gimenez's note Pt with c/o diffuse abd pain, currently controlled abd soft, mild diffuse TTP d/w GI-need W/u of CBD obstruction concern will follow concern for possible anastamotic stenosis Will follow for possible intervention Thanks for consult! DEAN GIMENEZ [employer] Nov 11, 2016 09:49 RANJANA PEDROZA MD Nov 11, 2016 20:10
--- NOTE | 2016-11-11 10:16 | RAD ---
Indication Crohn's. Nausea and vomiting. A single KUB was obtained. Note is made of a CT examination of the abdomen and pelvis yesterday. The abdominal gas pattern is nonobstructive. Bilateral renal calculi are noted with larger calculi, 3, in the right renal pelvis each measuring approximately 5 to 6 mm in greatest dimension. IMPRESSION: Nonobstructive gas pattern. Bilateral renal calculi noted.
[2016-11-11 10:59] VITALS: BP 110/65
--- NOTE | 2016-11-11 13:18 | PDOC ---
G I PROGRESS NOTE Reason for Follow-up Crohns disease with stricture/abnl biliary treee/rising LFTS Subjective Patient hungry Physical Exam Lungs clear CV S1 S2 ABD +BS, soft, mild distention Review of Relevant I have reviewed the following items katarzyna (where applicable) has been applied. Labs Laboratory Tests Test 11/10/16 15:25 11/10/16 15:30 11/11/16 05:55 11/11/16 08:40 White Blood Count 7.0x10^3/uL (4.0-11.0) 3.5x10^3/uL (4.0-11.0) Red Blood Count 3.68x10^6/uL (3.50-5.40) 3.10x10^6/uL (3.50-5.40) Hemoglobin 9.2g/dL (12.0-15.5) 7.7g/dL (12.0-15.5) Hematocrit 28.5% (36.0-47.0) 24.8% (36.0-47.0) Mean Corpuscular Volume 78fL (79-100) 80fL (79-100) Mean Corpuscular Hemoglobin 25pg (25-35) 25pg (25-35) Mean Corpuscular Hemoglobin Concent 32g/dL (31-37) 31g/dL (31-37) Red Cell Distribution Width 15.1% (11.5-14.5) 14.7% (11.5-14.5) Platelet Count 343x10^3/uL (140-400) 236x10^3/uL (140-400) Neutrophils (%) (Auto) 57% (31-73) 39% (31-73) Lymphocytes (%) (Auto) 35% (24-48) 47% (24-48) Monocytes (%) (Auto) 7% (0-9) 9% (0-9) Eosinophils (%) (Auto) 2% (0-3) 5% (0-3) Basophils (%) (Auto) 0% (0-3) 0% (0-3) Neutrophils # (Auto) 4.0x10^3uL (1.8-7.7) 1.4x10^3uL (1.8-7.7) Lymphocytes # (Auto) 2.4x10^3/uL (1.0-4.8) 1.6x10^3/uL (1.0-4.8) Monocytes # (Auto) 0.5x10^3/uL (0.0-1.1) 0.3x10^3/uL (0.0-1.1) Eosinophils # (Auto) 0.1x10^3/uL (0.0-0.7) 0.2x10^3/uL (0.0-0.7) Basophils # (Auto) 0.0x10^3/uL (0.0-0.2) 0.0x10^3/uL (0.0-0.2) Sodium Level 140mmol/L (136-145) 142mmol/L (136-145) Potassium Level 4.5mmol/L (3.5-5.1) 4.2mmol/L (3.5-5.1) Chloride Level 105mmol/L (98-107) 111mmol/L (98-107) Carbon Dioxide Level 23mmol/L (21-32) 22mmol/L (21-32) Anion Gap 12 (6-14) 9 (6-14) Blood Urea Nitrogen 32mg/dL (7-20) 25mg/dL (7-20) Creatinine 2.2mg/dL (0.6-1.0) 1.8mg/dL (0.6-1.0) Estimated GFR (Cockcroft-Gault) 22.2 28.0 Glucose Level 108mg/dL (70-99) 85mg/dL (70-99) Lactic Acid Level 1.0mmol/L (0.4-2.0) Calcium Level 8.5mg/dL (8.5-10.1) 8.1mg/dL (8.5-10.1) Total Bilirubin 1.8mg/dL (0.2-1.0) 1.4mg/dL (0.2-1.0) Direct Bilirubin 0.6mg/dL (0.0-0.2) Aspartate Amino Transf (AST/SGOT) 246U/L (15-37) 139U/L (15-37) Alanine Aminotransferase (ALT/SGPT) 319U/L (14-59) 232U/L (14-59) Alkaline Phosphatase 583U/L (46-116) 474U/L (46-116) Troponin I Quantitative < 0.017ng/mL (0.000-0.055) NL-Ssa-T-Type Natriuretic Peptide 231pg/mL (0-124) Total Protein 6.3g/dL (6.4-8.2) 5.2g/dL (6.4-8.2) Albumin 2.8g/dL (3.4-5.0) 2.3g/dL (3.4-5.0) Lipase 477U/L (73-393) 104U/L (73-393) Urine Collection Type Void Urine Color Dk yellow Urine Clarity Hazy Urine pH 5.0 Urine Specific [place] 1.015 Urine Protein Negativemg/dL (NEG-TRACE) Urine Glucose (UA) Negativemg/dL (NEG) Urine Ketones (Stick) Tracemg/dL (NEG) Urine Blood Large (NEG) Urine Nitrite Negative (NEG) Urine Bilirubin Small (NEG) Urine Urobilinogen Dipstick 1.0mg/dL (0.2 mg/dL) Urine Leukocyte Esterase Small (NEG) Urine RBC >40/HPF (0-2) Urine WBC 1-4/HPF (0-4) Urine Squamous Epithelial Cells Many/LPF Urine Bacteria Few/HPF (0-FEW) Urine Hyaline Casts Occasional/HPF Urine Mucus Mod/LPF BUN/Creatinine Ratio 14 (6-20) Albumin/Globulin Ratio 0.8 (1.0-1.7) Amylase Level 58U/L (25-115) Prothrombin Time 22.9SEC (11.7-14.0) Prothromb Time International Ratio 2.2 (0.8-1.1) Laboratory Tests Test 11/10/16 15:25 11/10/16 15:30 11/11/16 05:55 11/11/16 08:40 White Blood Count 7.0x10^3/uL (4.0-11.0) 3.5x10^3/uL (4.0-11.0) Red Blood Count 3.68x10^6/uL (3.50-5.40) 3.10x10^6/uL (3.50-5.40) Hemoglobin 9.2g/dL (12.0-15.5) 7.7g/dL (12.0-15.5) Hematocrit 28.5% (36.0-47.0) 24.8% (36.0-47.0) Mean Corpuscular Volume 78fL (79-100) 80fL (79-100) Mean Corpuscular Hemoglobin 25pg (25-35) 25pg (25-35) Mean Corpuscular Hemoglobin Concent 32g/dL (31-37) 31g/dL (31-37) Red Cell Distribution Width 15.1% (11.5-14.5) 14.7% (11.5-14.5) Platelet Count 343x10^3/uL (140-400) 236x10^3/uL (140-400) Neutrophils (%) (Auto) 57% (31-73) 39% (31-73) Lymphocytes (%) (Auto) 35% (24-48) 47% (24-48) Monocytes (%) (Auto) 7% (0-9) 9% (0-9) Eosinophils (%) (Auto) 2% (0-3) 5% (0-3) Basophils (%) (Auto) 0% (0-3) 0% (0-3) Neutrophils # (Auto) 4.0x10^3uL (1.8-7.7) 1.4x10^3uL (1.8-7.7) Lymphocytes # (Auto) 2.4x10^3/uL (1.0-4.8) 1.6x10^3/uL (1.0-4.8) Monocytes # (Auto) 0.5x10^3/uL (0.0-1.1) 0.3x10^3/uL (0.0-1.1) Eosinophils # (Auto) 0.1x10^3/uL (0.0-0.7) 0.2x10^3/uL (0.0-0.7) Basophils # (Auto) 0.0x10^3/uL (0.0-0.2) 0.0x10^3/uL (0.0-0.2) Sodium Level 140mmol/L (136-145) 142mmol/L (136-145) Potassium Level 4.5mmol/L (3.5-5.1) 4.2mmol/L (3.5-5.1) Chloride Level 105mmol/L (98-107) 111mmol/L (98-107) Carbon Dioxide Level 23mmol/L (21-32) 22mmol/L (21-32) Anion Gap 12 (6-14) 9 (6-14) Blood Urea Nitrogen 32mg/dL (7-20) 25mg/dL (7-20) Creatinine 2.2mg/dL (0.6-1.0) 1.8mg/dL (0.6-1.0) Estimated GFR (Cockcroft-Gault) 22.2 28.0 Glucose Level 108mg/dL (70-99) 85mg/dL (70-99) Lactic Acid Level 1.0mmol/L (0.4-2.0) Calcium Level 8.5mg/dL (8.5-10.1) 8.1mg/dL (8.5-10.1) Total Bilirubin 1.8mg/dL (0.2-1.0) 1.4mg/dL (0.2-1.0) Direct Bilirubin 0.6mg/dL (0.0-0.2) Aspartate Amino Transf (AST/SGOT) 246U/L (15-37) 139U/L (15-37) Alanine Aminotransferase (ALT/SGPT) 319U/L (14-59) 232U/L (14-59) Alkaline Phosphatase 583U/L (46-116) 474U/L (46-116) Troponin I Quantitative < 0.017ng/mL (0.000-0.055) PV-Pyg-Z-Type Natriuretic Peptide 231pg/mL (0-124) Total Protein 6.3g/dL (6.4-8.2) 5.2g/dL (6.4-8.2) Albumin 2.8g/dL (3.4-5.0) 2.3g/dL (3.4-5.0) Lipase 477U/L (73-393) 104U/L (73-393) Urine Collection Type Void Urine Color Dk yellow Urine Clarity Hazy Urine pH 5.0 Urine Specific [place] 1.015 Urine Protein Negativemg/dL (NEG-TRACE) Urine Glucose (UA) Negativemg/dL (NEG) Urine Ketones (Stick) Tracemg/dL (NEG) Urine Blood Large (NEG) Urine Nitrite Negative (NEG) Urine Bilirubin Small (NEG) Urine Urobilinogen Dipstick 1.0mg/dL (0.2 mg/dL) Urine Leukocyte Esterase Small (NEG) Urine RBC >40/HPF (0-2) Urine WBC 1-4/HPF (0-4) Urine Squamous Epithelial Cells Many/LPF Urine Bacteria Few/HPF (0-FEW) Urine Hyaline Casts Occasional/HPF Urine Mucus Mod/LPF BUN/Creatinine Ratio 14 (6-20) Albumin/Globulin Ratio 0.8 (1.0-1.7) Amylase Level 58U/L (25-115) Prothrombin Time 22.9SEC (11.7-14.0) Prothromb Time International Ratio 2.2 (0.8-1.1) Medications Current Medications Sodium Chloride (Iv Sodium Chloride 0.9% 500ml Bag) 500 ml @ 500 mls/hr 1X ONCE IV Last administered on 11/10/16 15:46; Start 11/10/16 at 15:15; Stop at 16:14; Status DC Ondansetron HCl 4 mg 4 mg PRN Q8HRS PRN IV NAUSEA/VOMITING; Start 11/10/16 at 16:45; Stop 11/11/16 at 16:44 Sodium Chloride (Iv Sodium Chloride 0.9% 1000ml Bag) 1,000 ml @ 125 mls/hr Q8H IV Last administered on 11/11/16 01:47; Start 11/10/16 at 17:00; Stop at 08:35; Status DC Artificial Tears (Artificial Tears) 1 drop PRN Q15MIN PRN OU DRY EYE Last administered on 11/11/16 09:18; Start 11/10/16 at 22:30 Morphine Sulfate 3 mg 3 mg PRN Q3HRS PRN IV SEVERE PAIN; Start 11/10/16 at 22: 30 Potassium Chloride/Dextrose/ Sod Cl (KCl 20 Meq In D5W-1/2 NS) 1,000 ml @ 125 mls/hr Q8H PRN IV .; Start 11/11/16 at 08:15; Stop 11/11/16 at 08:35; Status DC Enoxaparin Sodium 40 mg 40 mg Q24H SQ Last administered on 11/11/16 09:13; Start 11/11/16 at 08:30 Potassium Chloride/Dextrose/ Sod Cl (KCl 20 Meq In D5W-1/2 NS) 1,000 ml @ 125 mls/hr Q8H IV Last administered on 11/11/16 09:12; Start 11/11/16 at 09:00 Active Scripts Active Reported Multivitamins (Multivitamin) 1 Each Tablet 1 Tab PO DAILY Cyclobenzaprine Hcl 10 Mg Tablet 1 Tab PO TID PRN Lansoprazole 30 Mg Capsule. 1 Cap PO DAILY Proair Hfa Inhaler (Albuterol Sulfate) 8.5 Gm Hfa.aer.ad 1 Puff INH PRN Q6HRS PRN Losartan Potassium 25 Mg Tablet 25 Mg PO DAILY Vitamin D3 (Cholecalciferol (Vitamin D3)) 5,000 Unit Tablet 1 Tab PO DAILY Remicade (Infliximab) 100 Mg Vial 100 Mg IV UD pt gets infusion every [address] Hoover's office, next dose is December 01, 2016 Lansoprazole 30 Mg Capsule. 1 Cap PO DAILY Coumadin (Warfarin Sodium) 6 Mg Tablet 1 Tab PO DAILY Vitals/I & O Vital Sign - Last 24 Hours 11/10/16 11/10/16 11/10/16 11/10/16 14:44 14:55 15:43 15:58 Temp 97.7 97.7 Pulse 108 114 124 100 Resp 20 19 B/P 112/58 103/66 110/53 85/50 Pulse Ox 96 95 O2 Delivery Room Air Room Air 11/10/16 11/10/16 11/10/16 11/10/16 16:25 16:55 17:25 18:16 Pulse 94 96 90 Resp 14 18 15 B/P 99/51 98/50 Pulse Ox 94 94 91 O2 Delivery Room Air Room Air Room Air Room Air 11/10/16 11/10/16 11/10/16 11/11/16 18:37 19:00 23:00 03:00 Temp 97.7 97.7 98.4 97.8 97.7 97.7 98.4 97.8 Pulse 90 92 95 87 Resp 20 20 20 B/P 98/50 107/60 95/40 96/58 Pulse Ox 91 98 93 93 O2 Delivery Room Air Room Air Room Air Room Air 11/11/16 11/11/16 11/11/16 07:00 08:35 10:59 Temp 97.7 97.7 97.7 97.7 Pulse 85 89 Resp 20 20 B/P 104/61 110/65 Pulse Ox 95 99 O2 Delivery Room Air Room Air Room Air Intake and Output 11/10/16 11/10/16 11/11/16 15:00 23:00 07:00 Intake Total 500 ml 100 ml Balance 500 ml 100 ml Problem List Problems Medical Problems: (1) Abdominal pain Status: Acute (2) Elevated lipase Status: Acute (3) Transaminitis Status: Acute Assessment Crohns disease - stricture on colonoscopy, surgical input pending Abnl Ct scan biliary tree S/P neelima, increasing alk phos worrisome for retained stone, PSC, and/or malignancy await MRCP- possible ercp with brush cytology and/or liver biopsy may be needed TAMIKA HOBBS MD Nov 11, 2016 13:18
--- NOTE | 2016-11-11 13:54 | HP ---
ADMIT DATE: CHIEF COMPLAINT AND HISTORY OF PRESENT ILLNESS: A 70-year-old white female with abdominal pain. Two weeks ago went to ____, had a colonoscopy and was told she has some sort of colonic obstruction and likely will need surgery. She has had ____ vomiting over the last 2 days with lower abdominal pain and came in after CT scan showed some ileus and mild abnormalities in the liver function tests and abnormal on the lab work as well. She has had decreased stool output and decreased diarrhea most recently as well. ALLERGIES: SHE IS ALLERGIC TO PENICILLIN, BARIUM AND OXYCODONE. MEDICATIONS: She takes warfarin for previous recurrent DVT and also blood pressure meds. SOCIAL HISTORY: , not employed, nondrinker. FAMILY HISTORY: Unremarkable. REVIEW OF SYSTEMS: No other known problems. OBJECTIVE: ENT: All within normal limits except for mild pallor. NECK: Revealed no carotid bruits, nodes or thyroid enlargement. LUNGS: Clear. CARDIOVASCULAR: Regular rate. No tachycardia or murmur. ABDOMEN: Flat, soft, relatively benign. Bowel sounds mildly increased. No masses are felt. EXTREMITIES: Good pedal and radial pulses, no joint or skin lesions, right anterior thigh is tender consistent with recent quadriceps strain. NEUROLOGIC: Physiologic. ASSESSMENT: Recurrent vomiting and the patient with a known colonic obstruction likely stricture secondary to Crohn's disease. She has a history of hypercoagulability disorder and takes chronic warfarin as well as blood pressure medicines. PLAN: GI and surgical consultation, daily Lovenox prophylaxis, IV fluids and bowel rest. KENZIE STERLING MD DR: ANGELA/aster JOB#: [id number] / [id number]
[2016-11-11 14:54] VITALS: BP 108/70
[2016-11-11 19:00] VITALS: BP 97/53
--- NOTE | 2016-11-11 21:13 | CONS ---
DATE OF CONSULTATION: 11/10/2016 REASON FOR CONSULTATION: Crohn's, partial small-bowel obstruction, nausea and vomiting. HISTORY OF PRESENT ILLNESS: The patient is a 70-year-old female status post hysterectomy, cholecystectomy, tonsillectomy, tubal ligation, history of Crohn's resections x 2, arthritis, asthma, DVT, ____ therapy; however, colonoscopy prior by ____ several weeks ago, which apparently revealed colonic stricture. Surgical consultation was being arranged for possible resection. The patient noticed over the past 24 hours, ____. With continued symptoms, she then ____. She has had no flatus or gas or stool ____. SHE IS ALLERGIC TO MULTIPLE CONTRAST and CT scan which revealed mild dilatation of small bowel, moderate amount of fluid and stool in the colon as well as dilatation of the biliary tree with mild elevation of liver function tests. With these symptoms, she has been admitted for further evaluation. PAST MEDICAL HISTORY: Status post cholecystectomy, hysterectomy, tonsillectomy, tubal ligation, arthritis, asthma, DVT and Crohn's. ALLERGIES: IODINE, PENICILLIN, BARIUM, CODEINE AND OXYCODONE. MEDICATIONS: Presently include Zofran and Remicade as an outpatient. SOCIAL HISTORY: Does not drink or smoke. FAMILY HISTORY: Noncontributory. REVIEW OF SYSTEMS: Per records. PHYSICAL EXAMINATION: GENERAL: Reveals well-nourished, well-developed female. She is afebrile. VITAL SIGNS: Pulse 90, respirations 15, blood pressure is ____. HEENT: Normocephalic and atraumatic head. Pupils and extraocular muscles not tested. Sclerae anicteric. NECK: Supple. LUNGS: Clear. CARDIOVASCULAR: Reveals an S1, S2, without S3, S4 or appreciable murmur. ABDOMEN: Reveals soft with hyperactive bowel sounds, multiple surgical incisions with mild left lower quadrant ____ deep palpation. EXTREMITIES: Reveals no cyanosis, clubbing or edema. LABORATORY STUDIES: Hemoglobin 9.2, hematocrit 28.5. White count 7.0, platelet counts 343,000. Sodium 140, potassium 4.5, chloride 105, bicarbonate 23, BUN 32, creatinine 2.2, glucose is 108, calcium is 8.5, total bilirubin 1.8, direct bilirubin 0.6, AST ____, ALT 319, alkaline phosphatase of 583, total protein 6.3, albumin 2.8, lipase is ____. Beta natriuretic peptide is 231. IMPRESSION: Abdominal pain status post ____ as well as possible retained common duct stone and/or malignancy. We will recommend repeat liver enzymes as well as a KUB in the morning, amylase and lipase to further assess the symptoms, pending the surgical consultation, may be needed if the patient's symptoms more consistent with partial small-bowel obstruction versus cholangitis. I would like to thank, Dr. Quinteros for allowing us to consult and participate in the patient's care. TAMIKA HOBBS MD DR: MAINE/aster JOB#: [id number] / [id number]
[2016-11-11 22:37] VITALS: BP 114/61
[2016-11-12] MEDS: POTASSIUM CL 20MEQ D5-0.45NACL 1,000 ML IV SCH ×3 (01:52→17:00)
[2016-11-12 03:00] VITALS: BP 100/57
[2016-11-12 07:20] VITALS: BP 126/57
[2016-11-12] MEDS: POLYVINYL ALCOHOL 1.4% OPHTH SOLUTION 15ML BOTTLE. OU PRN (08:16)
[2016-11-12] MEDS: ENOXAPARIN 40 MG/0.4 ML SYRINGE. SQ SCH (08:30)
--- NOTE | 2016-11-12 09:03 | PDOC ---
Provider Note Provider Note vss, no temp or more emesis, renal better and TAs/bili lower also- mrcp report pending, for ercp today- surg consult done, off warf re pending op likely, daily italox KENZIE STERLING MD Nov 12, 2016 09:03
--- NOTE | 2016-11-12 09:53 | PDOC ---
DEAN LEMA DEXTRINE MIXER 11/12/16 0953: SURGICAL PROGRESS NOTE Subjective ERCP planned today having loose stools pain minimal today Vital Signs Vital Signs Date Time Temp Pulse Resp B/P Pulse Ox O2 Delivery O2 Flow Rate FiO2 11/12/16 09:00 Room Air 11/12/16 07:20 97.9 81 18 126/57 96 97.9 I&O Intake and Output 11/12/16 07:00 Intake Total 980 ml Output Total 3300 ml Balance -2320 ml Intake Oral 980 ml Output Urine Total 3300 ml General: Alert, Oriented X3, Cooperative, No acute distress Abdomen: Soft, No tenderness Labs Laboratory Tests Test 11/10/16 15:25 11/10/16 15:30 11/11/16 05:55 11/11/16 08:40 White Blood Count 7.0x10^3/uL (4.0-11.0) 3.5x10^3/uL (4.0-11.0) Red Blood Count 3.68x10^6/uL (3.50-5.40) 3.10x10^6/uL (3.50-5.40) Hemoglobin 9.2g/dL (12.0-15.5) 7.7g/dL (12.0-15.5) Hematocrit 28.5% (36.0-47.0) 24.8% (36.0-47.0) Mean Corpuscular Volume 78fL (79-100) 80fL (79-100) Mean Corpuscular Hemoglobin 25pg (25-35) 25pg (25-35) Mean Corpuscular Hemoglobin Concent 32g/dL (31-37) 31g/dL (31-37) Red Cell Distribution Width 15.1% (11.5-14.5) 14.7% (11.5-14.5) Platelet Count 343x10^3/uL (140-400) 236x10^3/uL (140-400) Neutrophils (%) (Auto) 57% (31-73) 39% (31-73) Lymphocytes (%) (Auto) 35% (24-48) 47% (24-48) Monocytes (%) (Auto) 7% (0-9) 9% (0-9) Eosinophils (%) (Auto) 2% (0-3) 5% (0-3) Basophils (%) (Auto) 0% (0-3) 0% (0-3) Neutrophils # (Auto) 4.0x10^3uL (1.8-7.7) 1.4x10^3uL (1.8-7.7) Lymphocytes # (Auto) 2.4x10^3/uL (1.0-4.8) 1.6x10^3/uL (1.0-4.8) Monocytes # (Auto) 0.5x10^3/uL (0.0-1.1) 0.3x10^3/uL (0.0-1.1) Eosinophils # (Auto) 0.1x10^3/uL (0.0-0.7) 0.2x10^3/uL (0.0-0.7) Basophils # (Auto) 0.0x10^3/uL (0.0-0.2) 0.0x10^3/uL (0.0-0.2) Sodium Level 140mmol/L (136-145) 142mmol/L (136-145) Potassium Level 4.5mmol/L (3.5-5.1) 4.2mmol/L (3.5-5.1) Chloride Level 105mmol/L (98-107) 111mmol/L (98-107) Carbon Dioxide Level 23mmol/L (21-32) 22mmol/L (21-32) Anion Gap 12 (6-14) 9 (6-14) Blood Urea Nitrogen 32mg/dL (7-20) 25mg/dL (7-20) Creatinine 2.2mg/dL (0.6-1.0) 1.8mg/dL (0.6-1.0) Estimated GFR (Cockcroft-Gault) 22.2 28.0 Glucose Level 108mg/dL (70-99) 85mg/dL (70-99) Lactic Acid Level 1.0mmol/L (0.4-2.0) Calcium Level 8.5mg/dL (8.5-10.1) 8.1mg/dL (8.5-10.1) Total Bilirubin 1.8mg/dL (0.2-1.0) 1.4mg/dL (0.2-1.0) Direct Bilirubin 0.6mg/dL (0.0-0.2) Aspartate Amino Transf (AST/SGOT) 246U/L (15-37) 139U/L (15-37) Alanine Aminotransferase (ALT/SGPT) 319U/L (14-59) 232U/L (14-59) Alkaline Phosphatase 583U/L (46-116) 474U/L (46-116) Troponin I Quantitative < 0.017ng/mL (0.000-0.055) LG-Yhg-D-Type Natriuretic Peptide 231pg/mL (0-124) Total Protein 6.3g/dL (6.4-8.2) 5.2g/dL (6.4-8.2) Albumin 2.8g/dL (3.4-5.0) 2.3g/dL (3.4-5.0) Lipase 477U/L (73-393) 104U/L (73-393) Urine Collection Type Void Urine Color Dk yellow Urine Clarity Hazy Urine pH 5.0 Urine Specific [place] 1.015 Urine Protein Negativemg/dL (NEG-TRACE) Urine Glucose (UA) Negativemg/dL (NEG) Urine Ketones (Stick) Tracemg/dL (NEG) Urine Blood Large (NEG) Urine Nitrite Negative (NEG) Urine Bilirubin Small (NEG) Urine Urobilinogen Dipstick 1.0mg/dL (0.2 mg/dL) Urine Leukocyte Esterase Small (NEG) Urine RBC >40/HPF (0-2) Urine WBC 1-4/HPF (0-4) Urine Squamous Epithelial Cells Many/LPF Urine Bacteria Few/HPF (0-FEW) Urine Hyaline Casts Occasional/HPF Urine Mucus Mod/LPF BUN/Creatinine Ratio 14 (6-20) Albumin/Globulin Ratio 0.8 (1.0-1.7) Amylase Level 58U/L (25-115) Prothrombin Time 22.9SEC (11.7-14.0) Prothromb Time International Ratio 2.2 (0.8-1.1) Problem List Problems Medical Problems: (1) Abdominal pain Status: Acute (2) Elevated lipase Status: Acute (3) Transaminitis Status: Acute Assessment/Plan ERPC planned, MRCP pending possible stricture, crohns will follow Problems: YOVANY,RANJANA J MD 11/12/16 1353: SURGICAL PROGRESS NOTE Assessment/Plan Pt out of room for ERCP cont w/u per GI Problems: DEAN LEMA DEXTRINE MIXER Nov 12, 2016 09:53 RANJANA PEDROZA MD Nov 12, 2016 13:53
--- NOTE | 2016-11-12 10:25 | RAD ---
MRCP, 11/11/2016: History: Abnormal liver function tests, inflammatory bowel disease Imaging was performed in axial and coronal planes utilizing a variety of imaging sequences including T2 weighted, fat suppressed T2 weighted and opposed phase gradient echo sequences. Heavily T2 weighted MRCP sequences were also performed with and without respiratory gating with 3-D MIP images reconstructed. The gallbladder is surgically absent. There is mild to moderate dilatation of the central intrahepatic bile ducts and the common bile duct. The common duct measures 18 mm in greatest width. The duct tapers normally within the pancreatic head at the ampulla. No focal stenosis is identified. No filling defect is seen in the duct to suggest a common duct calculus. The pancreatic duct is of normal caliber. The left kidney is atrophic. There are bilateral renal cysts, more numerous on the right. Multiple calculi are again noted in the right renal pelvis. IMPRESSION: 1. Status post cholecystectomy. 2. Dilatation of the central intrahepatic ducts and common bile duct without evidence of an obstructing calculus or mass.
[2016-11-12 10:55] LABS: INR 2.4 (0.8-1.1); PROTHROMBIN TIME PATIENT 24.3 SEC (11.7-14.0)
[2016-11-12 11:00] VITALS: BP 112/66
[2016-11-12] MEDS ORDERED: PHYTONADIONE 10 MG/ML AMPUL. SQ ONE (12:00)
[2016-11-12] MEDS ORDERED: IV RINGERS,LACTATED 1000ML 1,000 ML IV SCH ×2 (12:54→13:30)
[2016-11-12] MEDS ORDERED: LIDOCAINE 1% 1 ML SYRINGE. ID PRN (13:00)
[2016-11-12] MEDS ORDERED: FENTANYL PF 100 MCG/2 ML VIAL. IV PRN ×2 (13:00)
[2016-11-12] MEDS ORDERED: MIDAZOLAM HCL/PF 2 MG/2 ML VIAL. IV PRN (13:00)
[2016-11-12] MEDS ORDERED: PROPOFOL 20 ML IV ONE (13:54)
--- NOTE | 2016-11-12 14:21 | PDOC4 ---
Operative Note Operative Note EGD/attempted ERCP Meds propofol per anesthesia Pre-op dx dilated CBD/abnl LFTS/hx IBD post- op dx non-cannulated CBD/pancreatic duct due to deformity/angulation Plan advance diet ERCP/EUS at [facility] to further assess possible o/p image guided liver biopsy once off all anticoagulation TAMIKA HOBBS MD Nov 12, 2016 14:21
[2016-11-12 15:00] VITALS: BP 120/71
[2016-11-12] MEDS: PANTOPRAZOLE 40 MG TABLET.DR. PO SCH (16:41)
[2016-11-12 19:00] VITALS: BP 120/72
--- NOTE | 2016-11-12 20:04 | OP ---
DATE OF SURGERY: 11/12/2016 PROCEDURES PERFORMED: Attempted ERCP, esophagogastroduodenoscopy. MEDICATION RECEIVED: Propofol per Anesthesia. PREOPERATIVE DIAGNOSIS: Abnormal liver function test, dilated common bile duct, and abnormal CT scan. POSTOPERATIVE DIAGNOSIS: Nonerosive gastritis, normal esophagus, and marked deformity of the duodenum with noncannulation of the common bile duct and pancreatic duct due to the deformity. DESCRIPTION OF PROCEDURE: After the risks and benefits of procedure, including the risk of hemorrhage or perforation at the time of operation were discussed with the patient and family and informed consent was obtained, the patient was then placed in the prone position and a side-viewing endoscope was advanced through the esophagus, stomach, and first and second portions of the duodenum. No evidence of esophagitis, varices, or strictures was noted within the esophagus. Serial inspection of stomach, including retroflexion did reveal the nonerosive gastritis, the major papilla was identified; however, cannulation was not possible due to the marked angulation with either mena-tipped catheter or with a sphincterotome. The scope was then straightened and withdrawn. The patient tolerated the procedure well. DISPOSITION: Resume previous diet, meds, and activity. CONDITION: Stable. IMMUNIZATIONS: Up to date. PLAN: We will recommend that the patient advance her diet, hold all anticoagulation, and proceed with EUS/ERCP at [facility] at a later day with possible image-guided liver biopsy as well. This patient may be suffering from primary sclerosing cholangitis with her inflammatory bowel disease. I would like to thank Dr. Quinteros for allowing us to consult and participating in this patient's care. TAMIKA HOBBS MD DR: MAINE/aster JOB#: [id number] / [id number]
[2016-11-12 23:00] VITALS: BP 104/64
[2016-11-13] MEDS: POTASSIUM CL 20MEQ D5-0.45NACL 1,000 ML IV SCH (00:44)
[2016-11-13 03:00] VITALS: BP 122/74
[2016-11-13 07:00] VITALS: BP 125/69
[2016-11-13 07:12] LABS: BASO % 0 % (0-3); EOS % 4 % (0-3); HEMATOCRIT 25.3 % (36.0-47.0); HEMOGLOBIN 8.1 g/dL (12.0-15.5); LYMPH # 1.6 x10^3/uL (1.0-4.8); LYMPH % 42 % (24-48); MEAN CORPUSCULAR HEMOGLOBIN 25 pg (25-35); MEAN CORPUSCULAR HGB CONC 32 g/dL (31-37); MEAN CORPUSCULAR VOLUME 79 fL (79-100); MONO % 7 % (0-9); NEUT % 47 % (31-73); PLATELET COUNT 252 x10^3/uL (140-400); RED CELL DISTRIBUTION WIDTH 14.7 % (11.5-14.5); WHITE BLOOD COUNT 3.7 x10^3/uL (4.0-11.0)
[2016-11-13 07:20] LABS: INR 1.5 (0.8-1.1); PROTHROMBIN TIME PATIENT 17.4 SEC (11.7-14.0)
[2016-11-13 07:29] LABS: ALBUMIN 2.2 g/dL (3.4-5.0); ALBUMIN/GLOBULIN RATIO 0.7 (1.0-1.7); CREATININE 1.5 mg/dL (0.6-1.0); GFR 34.5; TOTAL BILIRUBIN 0.7 mg/dL (0.2-1.0); TOTAL PROTEIN 5.5 g/dL (6.4-8.2)
--- NOTE | 2016-11-13 07:55 | PDOC ---
Provider Note Provider Note vss, LFT/bili back to near normal, inr 1.5 off warf- feels better- will dc iv fluid, can dc once a plan in place for ?surgery etc as next step, but appears no fixed biliary lesion re mrcp/lab KENZIE STERLING MD Nov 13, 2016 07:55
[2016-11-13] MEDS: PANTOPRAZOLE 40 MG TABLET.DR. PO SCH (08:10)
[2016-11-13] MEDS: ENOXAPARIN 40 MG/0.4 ML SYRINGE. SQ SCH (08:11)
[2016-11-13 09:15] LABS: % BASOS 1 % (0-3); % EOS 4 % (0-5); PLT ESTIMATE ADEQUATE (ADEQUATE)
--- NOTE | 2016-11-13 09:38 | PDOC ---
SURGICAL PROGRESS NOTE Subjective no pain, tolerating diet usual bloating feeling no nausea or emesis Vital Signs Vital Signs Date Time Temp Pulse Resp B/P Pulse Ox O2 Delivery O2 Flow Rate FiO2 11/13/16 07:00 98.2 90 15 125/69 97 Room Air 98.2 11/12/16 14:25 2 I&O Intake and Output 11/13/16 07:00 Intake Total 3375 ml Output Total 1200 ml Balance 2175 ml Intake Oral 1875 ml Other 1500 ml Output Urine Total 1200 ml # Voids 4 General: Alert, Oriented X3, Cooperative, No acute distress Abdomen: Soft, No tenderness Labs Laboratory Tests Test 11/12/16 10:35 11/13/16 06:50 Prothrombin Time 24.3SEC (11.7-14.0) 17.4SEC (11.7-14.0) Prothromb Time International Ratio 2.4 (0.8-1.1) 1.5 (0.8-1.1) White Blood Count 3.7x10^3/uL (4.0-11.0) Red Blood Count 3.20x10^6/uL (3.50-5.40) Hemoglobin 8.1g/dL (12.0-15.5) Hematocrit 25.3% (36.0-47.0) Mean Corpuscular Volume 79fL (79-100) Mean Corpuscular Hemoglobin 25pg (25-35) Mean Corpuscular Hemoglobin Concent 32g/dL (31-37) Red Cell Distribution Width 14.7% (11.5-14.5) Platelet Count 252x10^3/uL (140-400) Neutrophils (%) (Auto) 47% (31-73) Lymphocytes (%) (Auto) 42% (24-48) Monocytes (%) (Auto) 7% (0-9) Eosinophils (%) (Auto) 4% (0-3) Basophils (%) (Auto) 0% (0-3) Neutrophils # (Auto) 1.7x10^3uL (1.8-7.7) Lymphocytes # (Auto) 1.6x10^3/uL (1.0-4.8) Monocytes # (Auto) 0.3x10^3/uL (0.0-1.1) Eosinophils # (Auto) 0.1x10^3/uL (0.0-0.7) Basophils # (Auto) 0.0x10^3/uL (0.0-0.2) Segmented Neutrophils % 44% (35-66) Band Neutrophils % 3% (0-9) Lymphocytes % 46% (24-48) Monocytes % 2% (0-10) Eosinophils % 4% (0-5) Basophils % 1% (0-3) Platelet Estimate Adequate (ADEQUATE) Sodium Level 143mmol/L (136-145) Potassium Level 4.0mmol/L (3.5-5.1) Chloride Level 113mmol/L (98-107) Carbon Dioxide Level 21mmol/L (21-32) Anion Gap 9 (6-14) Blood Urea Nitrogen 11mg/dL (7-20) Creatinine 1.5mg/dL (0.6-1.0) Estimated GFR (Cockcroft-Gault) 34.5 BUN/Creatinine Ratio 7 (6-20) Glucose Level 111mg/dL (70-99) Calcium Level 8.0mg/dL (8.5-10.1) Total Bilirubin 0.7mg/dL (0.2-1.0) Aspartate Amino Transf (AST/SGOT) 31U/L (15-37) Alanine Aminotransferase (ALT/SGPT) 127U/L (14-59) Alkaline Phosphatase 345U/L (46-116) Total Protein 5.5g/dL (6.4-8.2) Albumin 2.2g/dL (3.4-5.0) Albumin/Globulin Ratio 0.7 (1.0-1.7) Amylase Level 58U/L (25-115) Lipase 177U/L (73-393) Laboratory Tests Test 11/12/16 10:35 11/13/16 06:50 Prothrombin Time 24.3SEC (11.7-14.0) 17.4SEC (11.7-14.0) Prothromb Time International Ratio 2.4 (0.8-1.1) 1.5 (0.8-1.1) White Blood Count 3.7x10^3/uL (4.0-11.0) Red Blood Count 3.20x10^6/uL (3.50-5.40) Hemoglobin 8.1g/dL (12.0-15.5) Hematocrit 25.3% (36.0-47.0) Mean Corpuscular Volume 79fL (79-100) Mean Corpuscular Hemoglobin 25pg (25-35) Mean Corpuscular Hemoglobin Concent 32g/dL (31-37) Red Cell Distribution Width 14.7% (11.5-14.5) Platelet Count 252x10^3/uL (140-400) Neutrophils (%) (Auto) 47% (31-73) Lymphocytes (%) (Auto) 42% (24-48) Monocytes (%) (Auto) 7% (0-9) Eosinophils (%) (Auto) 4% (0-3) Basophils (%) (Auto) 0% (0-3) Neutrophils # (Auto) 1.7x10^3uL (1.8-7.7) Lymphocytes # (Auto) 1.6x10^3/uL (1.0-4.8) Monocytes # (Auto) 0.3x10^3/uL (0.0-1.1) Eosinophils # (Auto) 0.1x10^3/uL (0.0-0.7) Basophils # (Auto) 0.0x10^3/uL (0.0-0.2) Segmented Neutrophils % 44% (35-66) Band Neutrophils % 3% (0-9) Lymphocytes % 46% (24-48) Monocytes % 2% (0-10) Eosinophils % 4% (0-5) Basophils % 1% (0-3) Platelet Estimate Adequate (ADEQUATE) Sodium Level 143mmol/L (136-145) Potassium Level 4.0mmol/L (3.5-5.1) Chloride Level 113mmol/L (98-107) Carbon Dioxide Level 21mmol/L (21-32) Anion Gap 9 (6-14) Blood Urea Nitrogen 11mg/dL (7-20) Creatinine 1.5mg/dL (0.6-1.0) Estimated GFR (Cockcroft-Gault) 34.5 BUN/Creatinine Ratio 7 (6-20) Glucose Level 111mg/dL (70-99) Calcium Level 8.0mg/dL (8.5-10.1) Total Bilirubin 0.7mg/dL (0.2-1.0) Aspartate Amino Transf (AST/SGOT) 31U/L (15-37) Alanine Aminotransferase (ALT/SGPT) 127U/L (14-59) Alkaline Phosphatase 345U/L (46-116) Total Protein 5.5g/dL (6.4-8.2) Albumin 2.2g/dL (3.4-5.0) Albumin/Globulin Ratio 0.7 (1.0-1.7) Amylase Level 58U/L (25-115) Lipase 177U/L (73-393) Problem List Problems Medical Problems: (1) Abdominal pain Status: Acute (2) Elevated lipase Status: Acute (3) Transaminitis Status: Acute Assessment/Plan reviewed ERCP--non-cannulated CBD/pancreatic, needs [facility] FU for ERCP vs EUS, liver biopsy can FU in clinic with Dr Perez after testing complete--will leave contact information Problems: DEAN LEMA APRN Nov 13, 2016 09:38
--- NOTE | 2016-11-13 09:51 | PDOC ---
Subjective: Subjective: No pain, eating, stooling. Some bloating. Wants to DC. Objective: Vital Signs: Vital Signs Date Time Temp Pulse Resp B/P Pulse Ox O2 Delivery O2 Flow Rate FiO2 11/13/16 07:00 98.2 90 15 125/69 97 Room Air 98.2 11/12/16 14:25 2 Labs: Laboratory Tests Test 11/12/16 10:35 11/13/16 06:50 Prothrombin Time 24.3SEC 17.4SEC Prothromb Time International Ratio 2.4 1.5 White Blood Count 3.7x10^3/uL Red Blood Count 3.20x10^6/uL Hemoglobin 8.1g/dL Hematocrit 25.3% Mean Corpuscular Volume 79fL Mean Corpuscular Hemoglobin 25pg Mean Corpuscular Hemoglobin Concent 32g/dL Red Cell Distribution Width 14.7% Platelet Count 252x10^3/uL Neutrophils (%) (Auto) 47% Lymphocytes (%) (Auto) 42% Monocytes (%) (Auto) 7% Eosinophils (%) (Auto) 4% Basophils (%) (Auto) 0% Neutrophils # (Auto) 1.7x10^3uL Lymphocytes # (Auto) 1.6x10^3/uL Monocytes # (Auto) 0.3x10^3/uL Eosinophils # (Auto) 0.1x10^3/uL Basophils # (Auto) 0.0x10^3/uL Segmented Neutrophils % 44% Band Neutrophils % 3% Lymphocytes % 46% Monocytes % 2% Eosinophils % 4% Basophils % 1% Platelet Estimate Adequate Sodium Level 143mmol/L Potassium Level 4.0mmol/L Chloride Level 113mmol/L Carbon Dioxide Level 21mmol/L Anion Gap 9 Blood Urea Nitrogen 11mg/dL Creatinine 1.5mg/dL Estimated GFR (Cockcroft-Gault) 34.5 BUN/Creatinine Ratio 7 Glucose Level 111mg/dL Calcium Level 8.0mg/dL Total Bilirubin 0.7mg/dL Aspartate Amino Transf (AST/SGOT) 31U/L Alanine Aminotransferase (ALT/SGPT) 127U/L Alkaline Phosphatase 345U/L Total Protein 5.5g/dL Albumin 2.2g/dL Albumin/Globulin Ratio 0.7 Amylase Level 58U/L Lipase 177U/L PE: GEN: NAD, walking around room LUNGS: CTAB HEART: RRR ABD: S/NT NEURO/PSYCH: A & O 3 A/P: Dilated CBD, abnormal LFTs -ERCP 11/12/16: non-cannulated CBD/pancreatic duct due to deformity/angulation H/o Crohn's w/ stricture -- Recommend ERCP/EUS at for further workup. D/w RN. Note plans to f/u w/ surgery after. MAI CURRY Nov 13, 2016 09:51
[2016-11-13 11:39] VITALS: BP 124/74
--- NOTE | 2016-11-13 20:54 | DS ---
DATE OF DISCHARGE: 11/13/2016 ADMIT DATE: 11/11/2016. HOSPITAL SUMMARY: A 70-year-old white female with Crohn's disease who has been having recurrent abdominal pain, came in with increased nausea, vomiting and feculent emesis. She has been told by , her GI doctor that she may need a colon surgery for possible stricture. CT scan did not show obvious obstruction, but there was common bile duct dilation. MRCP showed no specific lesions in the common bile duct. ERCP could not be done technically because of ampullary narrowing. Liver function tests and bilirubin were mildly elevated on admission and fairly rapidly came down to normal without any more treatment other than bowel rest. She was given IV fluids and comfort care and tests as above were done. Her INR has gone down to 1.5 off warfarin and she is feeling better. She is comfortable to go home and be followed as an outpatient at this point. FINAL DIAGNOSES: 1. Partial small-bowel obstruction, resolved. 2. Transient cholangitis, etiology undetermined. OPERATIONS, PROCEDURES, COMPLICATIONS: None. CONSULTATIONS: Dr. Kaminski, Dr. Perez. DISPOSITION: Dr. Kaminski will arrange endoscopic ultrasound at or [facility] because of the concern of pathology in the common bile duct or ampulla. She will see Dr. Perez after that is accomplished to discuss the need for colonic surgery but at this point, there appears to be no clear obstruction. She will resume her warfarin and other meds all the same for now. Continue her Humira infusions for Crohn's. I will see her on a p.r.n. basis for any further problems. KENZIE STERLING MD DR: ANGELA/aster JOB#: [id number] / [id number]
== END 2016-11-13 13:30 | disposition home or self-care (01) | DRG 386 ==
LOC: ER 14:34 → 5 SOUTH 16:40
PROVIDERS: ADMIT Family Medicine; ATTEND Family Medicine
PROC: 0DJ08ZZ Inspection of Upper Intestinal Tract, Via Natural or Artificial Opening Endoscopic (ICD-10-PCS; principal; 2016-11-12 14:00)
DX: K50.012 Crohn's disease of small intestine with intestinal obstruction (principal); K83.0 Cholangitis; E44.1 Mild protein-calorie malnutrition; M19.90 Unspecified osteoarthritis, unspecified site; K29.70 Gastritis, unspecified, without bleeding; J45.909 Unspecified asthma, uncomplicated; Z79.01 Long term (current) use of anticoagulants; Z82.49 Family history of ischemic heart disease and other diseases of the circulatory system; Z86.718 Personal history of other venous thrombosis and embolism; Z87.442 Personal history of urinary calculi; Z90.49 Acquired absence of other specified parts of digestive tract; Z90.710 Acquired absence of both cervix and uterus; Z91.041 Radiographic dye allergy status; Z88.0 Allergy status to penicillin; Z88.8 Allergy status to other drugs, medicaments and biological substances; Z88.5 Allergy status to narcotic agent; Z88.2 Allergy status to sulfonamides; K31.89 Other diseases of stomach and duodenum; I12.9 Hypertensive chronic kidney disease with stage 1 through stage 4 chronic kidney disease, or unspecified chronic kidney disease; N18.3 Chronic kidney disease, stage 3 (moderate)
CPT/HCPCS: 36415; 74000; 74176; 74181; 74328; 80048; 80053; 80076; 81001; 82150; 83605; 83690; 83880; 84484; 85007; 85027; 85610; 87086; 93005; 96360; C1713; C1757; J1650; J2270; J2704; J3430; J7030; J7040; J7120; 99285-25

== ENCOUNTER 2016-12-07 08:53 | Inpatient (IN) | payer MEDICARE ==
[~2016-12-07] VITALS: Ht 165.1 cm; Wt 81.6 kg
[~2016-12-07 08:53] MED LIST changes: +CYCL10TA2 PO; +MULT1TAB52 PO; +PROAIR HFA8.5 GM INH; -WARF6TAB PO; +WARF6TAB49 PO
[2016-12-07] MEDS ORDERED: KETOROLAC TROMETHAMINE 30 MG/ML INJ. IV ONE (09:15)
[2016-12-07] MEDS ORDERED: fentaNYL PF VIAL 100 MCG/2 ML VIAL IV ONE ×2 (09:15→10:45)
--- NOTE | 2016-12-07 09:20 | PHYS DOC ---
Past Medical History Past Medical History: Arthritis, Asthma, DVT, Other Additional Past Medical Histor: kidney stones; chrons; Past Surgical History: Cholecystectomy, Hysterectomy, Tonsillectomy, Tubal ligation, Other Additional Past Surgical Histo: bowel resections X 2 due to chrons; Alcohol Use: Rarely Drug Use: None Adult General Chief Complaint Chief Complaint: FLANK PAIN [facility] HPI Patient is a 71 year old female presenting to the emergency department for evaluation of left flank pain that started last night around 6 PM and has persisted. Sharp and sudden in onset and causes her to have some nausea but no vomiting fevers chills dysuria or hematuria. She reports multiple episodes of kidney stones in the past one of which required intervention with Dr. Abreu. Most of her stones have passed on their own. Patient is in no obvious distress but appears uncomfortable. Review of Systems Review of Systems Constitutional: Denies fever or chills [] Eyes: Denies change in visual acuity, redness, or eye pain [] HENT: Denies nasal congestion or sore throat [] Respiratory: Denies cough or shortness of breath [] Cardiovascular: No additional information not addressed in HPI [] GI: Denies abdominal pain. + nausea. No vomiting, bloody stools or diarrhea [] : Denies dysuria or hematuria [] Musculoskeletal: + back pain. No joint pain [] Integument: Denies rash or skin lesions [] Neurologic: Denies headache, focal weakness or sensory changes [] Current Medications Current Medications Current Medications Medications (Trade) Dose Ordered Sig/Jazmin Start Time Stop Time Status Last Admin Dose Admin Fentanyl Citrate (Fentanyl 2ml Vial) 75 mcg 1X ONCE 12/07/16 10:45 12/07/16 10:46 DC 12/07/16 10:38 75 MCG Ketorolac Tromethamine (Toradol) 15 mg 1X ONCE 12/07/16 09:15 12/07/16 09:16 DC 12/07/16 09:34 15 MG Allergies Allergies Allergies Coded Allergies Type Severity Reaction Last Updated Verified codeine Allergy Severe Shortness of Air 11/12/16 Yes oxycodone Allergy Severe soa 11/12/16 Yes Iodinated Contrast Media - Oral and Allergy Intermediate Rash 11/12/16 Yes Penicillins Allergy Intermediate rash 11/12/16 Yes barium sulfate Allergy Intermediate hives 11/12/16 Yes Physical Exam Physical Exam Constitutional: Well developed, well nourished, no acute distress, non-toxic appearance. [] HENT: Normocephalic, atraumatic, bilateral external ears normal, oropharynx moist, no oral exudates, nose normal. [] Eyes: PERRLA, EOMI, conjunctiva normal, no discharge. [] Neck: Normal range of motion, no tenderness, supple, no stridor. [] Cardiovascular:Heart rate regular rhythm, no murmur [] Lungs & Thorax: Bilateral breath sounds clear to auscultation [] Abdomen: Bowel sounds normal, soft, no tenderness, no masses, no pulsatile masses. [] Skin: Warm, dry, no erythema, no rash. [] Back: No tenderness, + L CVA tenderness. [] Extremities: No tenderness, no cyanosis, no clubbing, ROM intact, no edema. [] Neurologic: Alert and oriented X 3, normal motor function, normal sensory function, no focal deficits noted. [] Current Patient Data Vital Signs Vital Signs Date Time Temp Pulse Resp B/P (MAP) Pulse Ox O2 Delivery O2 Flow Rate FiO2 12/07/16 11:00 94 18 115/56 (75) 96 Room Air 12/07/16 09:16 97.5 97.5 Lab Values Laboratory Tests Test 12/07/16 09:22 12/07/16 09:32 Urine Collection Type Unknown Urine Color Yellow Urine Clarity Clear Urine pH 6.0 Urine Specific [place] 1.015 Urine Protein Negative mg/dL (NEG-TRACE) Urine Glucose (UA) Negative mg/dL (NEG) Urine Ketones (Stick) Negative mg/dL (NEG) Urine Blood Small (NEG) Urine Nitrite Negative (NEG) Urine Bilirubin Negative (NEG) Urine Urobilinogen Dipstick 0.2 mg/dL (0.2 mg/dL) Urine Leukocyte Esterase Trace (NEG) Urine RBC 1-2 /HPF (0-2) Urine WBC 5-10 /HPF (0-4) Urine Squamous Epithelial Cells Mod /LPF Urine Bacteria Moderate /HPF (0-FEW) White Blood Count 11.0 x10^3/uL (4.0-11.0) Red Blood Count 3.85 x10^6/uL (3.50-5.40) Hemoglobin 9.2 g/dL (12.0-15.5) L Hematocrit 28.8 % (36.0-47.0) L Mean Corpuscular Volume 75 fL (79-100) L Mean Corpuscular Hemoglobin 24 pg (25-35) L Mean Corpuscular Hemoglobin Concent 32 g/dL (31-37) Red Cell Distribution Width 15.6 % (11.5-14.5) H Platelet Count 465 x10^3/uL (140-400) H Neutrophils (%) (Auto) 45 % (31-73) Lymphocytes (%) (Auto) 44 % (24-48) Monocytes (%) (Auto) 6 % (0-9) Eosinophils (%) (Auto) 4 % (0-3) H Basophils (%) (Auto) 1 % (0-3) Neutrophils # (Auto) 5.0 x10^3uL (1.8-7.7) Lymphocytes # (Auto) 4.9 x10^3/uL (1.0-4.8) H Monocytes # (Auto) 0.6 x10^3/uL (0.0-1.1) Eosinophils # (Auto) 0.4 x10^3/uL (0.0-0.7) Basophils # (Auto) 0.1 x10^3/uL (0.0-0.2) Sodium Level 142 mmol/L (136-145) Potassium Level 3.3 mmol/L (3.5-5.1) L Chloride Level 110 mmol/L (98-107) H Carbon Dioxide Level 20 mmol/L (21-32) L Anion Gap 12 (6-14) Blood Urea Nitrogen 23 mg/dL (7-20) H Creatinine 1.5 mg/dL (0.6-1.0) H Estimated GFR (Cockcroft-Gault) 34.4 BUN/Creatinine Ratio 15 (6-20) Glucose Level 85 mg/dL (70-99) Calcium Level 8.3 mg/dL (8.5-10.1) L Total Bilirubin 0.8 mg/dL (0.2-1.0) Aspartate Amino Transferase (AST) 16 U/L (15-37) Alanine Aminotransferase (ALT) 24 U/L (14-59) Alkaline Phosphatase 151 U/L (46-116) H Total Protein 6.8 g/dL (6.4-8.2) Albumin 2.6 g/dL (3.4-5.0) L Albumin/Globulin Ratio 0.6 (1.0-1.7) L Laboratory Tests 12/07/16 09:32 Laboratory Tests 12/07/16 09:32 EKG EKG [] Radiology/Procedures Radiology/Procedures Examination: CT of the abdomen pelvis without contrast History: History of left flank pain Comparison: 11/10/2016 Technique: Axial CT images of the abdomen was performed without contrast. Coronal and sagittal reformats were performed; PQRS Compliance Statement: One or more of the following individualized dose reduction techniques were utilized for this examination: 1. Automated exposure control 2. Adjustment of the mA and/or kV according to patient size 3. Use of iterative reconstruction technique Findings: 3 mm pulmonary nodule identified in the subpleural region of the left lingula of the lung and smaller nodules identified in the subpleural region at the left lung base are similar to prior exam. No evidence of free air identified in the abdomen The evaluation of solid organs is limited due to lack of IV contrast. The evaluation of the bowel is limited lack of oral contrast. The visualized noncontrasted liver, spleen, adrenals grossly appears unremarkable. The visualized pancreas grossly appears unremarkable. Prior changes of cholecystectomy. Mild prominent appearing common bile duct probably postcholecystectomy changes. The small bowel is nondilated. There is mild thickened wall of the rectum. There is mild to moderate thickened appearance of the wall of the distal transverse colon. There is minimal fat stranding identified about the distal transverse colon. Mild degenerative changes identified in the lumbar spine. 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 Feces and gas noted in the colon Multiple intrarenal collecting system calculi identified in the bilateral kidneys grossly similar to prior exam. There are calculi identified in the right renal pelvis with the largest measuring 8 mm grossly similar to prior exam. The right renal pelvis is mildly distended. No evidence of obstructive uropathy identified. Multiple cystic structures identified in the right kidney grossly similar to prior exam. Mild degenerative changes thoracal lumbar spine. 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 Impression: 1. There is mild to moderate thickened appearance of the distal transverse colon with minimal surrounding fat stranding. Differential includes mild colitis however underlying mucosal pathology such as neoplasm is not completely excluded. 2. Multiple bilateral intrarenal collecting system calculi and right renal pelvis calculi grossly similar to prior exam. 3. Multiple cystic structures identified in the right kidney probably cysts similar to prior exam. DICTATED and SIGNED BY: SO FRANCO MD DATE: 12/07/16 0957 Course & Med Decision Making Course & Med Decision Making Treat symptoms check urine CT and reassess. CT showed colitis but no stone. Patient and family are tearful stating that she has intractable pain and known once to help her and she cannot function due to the severe pain that she is having. Patient is requesting admits that she' ll be admitted for pain control and surgery consultation as it sounds that her surgeon was considering surgery. Dragon Disclaimer Dragon Disclaimer This electronic medical record was generated, in whole or in part, using a voice recognition dictation system. Departure Departure Impression: Primary Impression: Flank pain Additional Impressions: Intractable pain Colitis Disposition: ADMITTED INPATIENT Admitting Physician: Jeffrey Sterling Condition: STABLE Referrals: JEFFREY STERLING MD (PCP) Problem Qualifiers JEFFREY TAYLOR DO December 07, 2016 09:20
[2016-12-07 09:47] LABS: BASO # 0.1 x10^3/uL (0.0-0.2); BASO % 1 % (0-3); EOS % 4 % (0-3); HEMATOCRIT 28.8 % (36.0-47.0); HEMOGLOBIN 9.2 g/dL (12.0-15.5); LYMPH # 4.9 x10^3/uL (1.0-4.8); LYMPH % 44 % (24-48); MEAN CORPUSCULAR HEMOGLOBIN 24 pg (25-35); MEAN CORPUSCULAR HGB CONC 32 g/dL (31-37); MEAN CORPUSCULAR VOLUME 75 fL (79-100); MONO % 6 % (0-9); NEUT % 45 % (31-73); PLATELET COUNT 465 x10^3/uL (140-400); RED BLOOD COUNT 3.85 x10^6/uL (3.50-5.40); RED CELL DISTRIBUTION WIDTH 15.6 % (11.5-14.5)
[2016-12-07 09:48] LABS: BILIRUBIN,URINE NEGATIVE (NEG); GLUCOSE,URINE NEGATIVE (NEG); NITRITE,URINE NEGATIVE (NEG); PROTEIN,URINE NEGATIVE (NEG-TRACE); UROBILINOGEN,URINE 0.2 mg/dL (0.2 mg/dL)
[2016-12-07 10:04] LABS: CALCIUM 8.3 mg/dL (8.5-10.1); CREATININE 1.5 mg/dL (0.6-1.0); GFR 34.4; POTASSIUM 3.3 mmol/L (3.5-5.1)
[2016-12-07 10:08] LABS: BACTERIA,URINE MODERATE /HPF (0-FEW); SQUAMOUS EPITHELIAL CELL,UR MOD /LPF
[2016-12-07 10:10] LABS: ALBUMIN 2.6 g/dL (3.4-5.0); ALBUMIN/GLOBULIN RATIO 0.6 (1.0-1.7); TOTAL BILIRUBIN 0.8 mg/dL (0.2-1.0); TOTAL PROTEIN 6.8 g/dL (6.4-8.2)
--- NOTE | 2016-12-07 10:14 | RAD ---
Examination: CT of the abdomen pelvis without contrast History: History of left flank pain Comparison: 11/10/2016 Technique: Axial CT images of the abdomen was performed without contrast. Coronal and sagittal reformats were performed; PQRS Compliance Statement: One or more of the following individualized dose reduction techniques were utilized for this examination: 1. Automated exposure control 2. Adjustment of the mA and/or kV according to patient size 3. Use of iterative reconstruction technique Findings: 3 mm pulmonary nodule identified in the subpleural region of the left lingula of the lung and smaller nodules identified in the subpleural region at the left lung base are similar to prior exam. No evidence of free air identified in the abdomen The evaluation of solid organs is limited due to lack of IV contrast. The evaluation of the bowel is limited lack of oral contrast. The visualized noncontrasted liver, spleen, adrenals grossly appears unremarkable. The visualized pancreas grossly appears unremarkable. Prior changes of cholecystectomy. Mild prominent appearing common bile duct probably postcholecystectomy changes. The small bowel is nondilated. There is mild thickened wall of the rectum. There is mild to moderate thickened appearance of the wall of the distal transverse colon. There is minimal fat stranding identified about the distal transverse colon. Mild degenerative changes identified in the lumbar spine. 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 Feces and gas noted in the colon Multiple intrarenal collecting system calculi identified in the bilateral kidneys grossly similar to prior exam. There are calculi identified in the right renal pelvis with the largest measuring 8 mm grossly similar to prior exam. The right renal pelvis is mildly distended. No evidence of obstructive uropathy identified. Multiple cystic structures identified in the right kidney grossly similar to prior exam. Mild degenerative changes thoracal lumbar spine. 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 Impression: 1. There is mild to moderate thickened appearance of the distal transverse colon with minimal surrounding fat stranding. Differential includes mild colitis however underlying mucosal pathology such as neoplasm is not completely excluded. 2. Multiple bilateral intrarenal collecting system calculi and right renal pelvis calculi grossly similar to prior exam. 3. Multiple cystic structures identified in the right kidney probably cysts similar to prior exam.
[2016-12-07] MEDS ORDERED: MORPHINE SULFATE 10 MG/ML VIAL. IV ONE (11:15)
--- NOTE | 2016-12-07 12:11 | ACF ---
Admission Forms Criteria RENAL COLIC AND KIDNEY STONES Clinical Indications for Admission to Inpatient Care ( Place 'X' for any and all applicable criteria): Admission is indicated for ANY ONE of the following (1)(2)(3)(4): [X]I. Inpatient admission required rather than observation care (Also use Renal Colic and Kidney Stones: Observation Care Criteria as appropriate) because of ANY ONE of the following: [ ]a) Severe pain requiring acute inpatient management [ ]b) Urinary tract infection identified [ ]c) Vomiting that is severe or persistent [ ]d) IV fluid required rather than oral rehydration to replace significant ongoing (eg, for greater than 24 hours) losses (greater than 200 mL/hr or 3 L/m2 per day) [ ]e) Percutaneous or open drainage (eg, abscess, biliary tract) procedures [X]f) Other condition, treatment or monitoring requiring inpatient admission [ ]II. Impending acute renal failure [ ]III. Bilateral obstruction [ ]IV. Single kidney with obstruction [ ]V. Transplanted kidney with obstruction [ ]. Possible open surgical procedure needed (eg, pyonephrosis, stone removal not amendable to other means) [ ]VII. Hemodynamic instability Extended stay beyond goal length of stay may be needed for(2)(3)(31): [ ]a) Failed initial stone removal (32) [ ]b) Pyonephrosis [ ]c) Obstructive uropathy with urinary tract infection [ ]d) Procedure complications [ ]e) Comorbidities (22) The original [facility] content created by [employer] has been revised. The portions of the content which have been revised are identified through the use of italic text or in bold, and [facility] has neither reviewed nor approved the modified material. All other unmodified content is copyright [facility]. Please see references footnoted in the original [facility] edition 2016 Admission Criteria Met?: Yes CALVIN PULIDO December 07, 2016 12:11
[2016-12-07 12:24] VITALS: BP 140/74
[2016-12-07 12:25] VITALS: BP 140/74
[2016-12-07] MEDS ORDERED: ONDANSETRON PF 4 MG/2 ML VIAL. IV PRN (12:30)
[2016-12-07] MEDS ORDERED: LUBI8CAP3 PO (12:32)
[2016-12-07] MEDS ORDERED: LORA5SOL7 PO (12:33)
[2016-12-07] MEDS: fentaNYL PF VIAL 100 MCG/2 ML VIAL IV PRN ×2 (13:19→17:23)
--- NOTE | 2016-12-07 14:07 | PDOC2 ---
DEAN GIMENEZ PHYSICIAN GYNECOLOGIST 12/07/16 1407: CONSULT Date of Consult Date of Consult DATE: 12/07/16 TIME: 13:59 Reason for Consult Reason for Consult: colitis Referring Physician Referring Physician: ER Identification/Chief Complaint Chief Complaint abdominal pain Source Source: Chart review, Patient History of Present Illness Reason for Visit: Patient known to Dr Perez, recently here November 13, Crohns stricture on colonoscopy, elevated LFTS, discharged went to for ERCP, stent and liver biopsy. GI started Amitiza, she followed up with Dr Perez on . Yesterday developed LLQ pain that radiated to her flank. This is different than the pain she has been having that was across her lower abdomen--felt similar to kidney stones in past. Denies diarrhea. No nausea or emesis Past Medical History Cardiovascular: HTN Pulmonary: Asthma GI: Other Heme/Onc: Other Renal/: Other Past Surgical History Past Surgical History: Appendectomy, Cholecystectomy, , Hysterectomy, Colon Resection Family History Family History: Hypertension, Other Social History ALCOHOL: social Drugs: None Current Problem List Problem List Problems Medical Problems: (1) Colitis Status: Acute (2) Flank pain Status: Acute (3) Intractable pain Status: Acute Current Medications Current Medications Current Medications Ketorolac Tromethamine (Toradol) 15 mg 1X ONCE IV Last administered on 09:34; Start 12/07/16 at 09:15; Stop 12/07/16 at 09:16; Status DC Fentanyl Citrate (Fentanyl 2ml Vial) 75 mcg 1X ONCE IV Last administered on 09:34; Start 12/07/16 at 09:15; Stop 12/07/16 at 09:16; Status DC Fentanyl Citrate (Fentanyl 2ml Vial) 75 mcg 1X ONCE IV Last administered on 10:38; Start 12/07/16 at 10:45; Stop 12/07/16 at 10:46; Status DC Levofloxacin/ Dextrose 100 ml @ 100 mls/hr 1X ONCE IV Last administered on 11:35; Start 12/07/16 at 11:15; Stop 12/07/16 at 12:14; Status DC Metronidazole 100 ml @ 100 mls/hr 1X ONCE IV ; Start 12/07/16 at 11:15; Stop 12/07/16 at 12:14; Status DC Morphine Sulfate 5 mg 1X ONCE IV Last administered on 12/07/16 11:34; Start 12/07/16 at 11:15; Stop 12/07/16 at 11:16; Status DC Ondansetron HCl (Zofran) 4 mg PRN Q8HRS PRN IV NAUSEA/VOMITING; Start 12/07/16 at 12:30; Stop 12/08/16 at 12:29 Fentanyl Citrate (Fentanyl 2ml Vial) 50 mcg PRN Q1HR PRN IV PAIN Last administered on 12/07/16 13:19; Start 12/07/16 at 12:30; Stop 12/08/16 at 12:29 Active Scripts Active Reported Claritin (Loratadine) 5 Mg/5 Ml Solution 5 Ml PO DAILY PRN Amitiza (Lubiprostone) 8 Mcg Capsule 1 Cap PO BID Multivitamins (Multivitamin) 1 Each Tablet 1 Tab PO DAILY Cyclobenzaprine Hcl 10 Mg Tablet 1 Tab PO TID PRN Proair Hfa Inhaler (Albuterol Sulfate) 8.5 Gm Hfa.aer.ad 1 Puff INH PRN Q6HRS PRN Vitamin D3 (Cholecalciferol (Vitamin D3)) 5,000 Unit Tablet 1 Tab PO DAILY Remicade (Infliximab) 100 Mg Vial 100 Mg IV UD pt gets infusion every [address] Hoover's office, next dose is December 01, 2016 Lansoprazole 30 Mg Capsule. 1 Cap PO DAILY Coumadin (Warfarin Sodium) 6 Mg Tablet 1 Tab PO DAILY Allergies Allergies: Coded Allergies: codeine (Verified Allergy, Severe, Shortness of Air, 11/12/16) tolerates morphine and hydrocodone oxycodone (Verified Allergy, Severe, soa, 11/12/16) tolerates morphine and hydrocodone Iodinated Contrast Media - Oral and (Verified Allergy, Intermediate, Rash , 11/12/16) Penicillins (Verified Allergy, Intermediate, rash, 11/12/16) barium sulfate (Verified Allergy, Intermediate, hives, 11/12/16) ROS General: No: Chills, Other (fevers) PSYCHOLOGICAL ROS: No: Anxiety, Depression Eyes: No Blurry vision, No Double vision HEENT: No: Heacaches, Sore Throat Hematological and Lymphatic: No: Bleeding Problems, Blood Clots Respiratory: No: Cough, Shortness of breath Cardiovascular: No Chest Pain, No Palpitations Gastrointestinal: Yes Other (see hpi) Genitourinary: No Dysuria, No Hematuria Musculoskeletal: Yes Pain In: (left flank) Neurological: No Confusion, No Numbness/Tingling Skin: No Pruritus, No Rash Physical Exam General: Alert, Oriented X3, Cooperative, No acute distress HEENT: PERRLA, Mucous membr. moist/pink Lungs: Clear to auscultation, Normal air movement Heart: Regular rate, Normal S1, Normal S2, No murmurs Abdomen: Soft, Other (LLQ ttp) Extremities: No clubbing, No cyanosis Skin: No rashes, No breakdown Neuro: Normal speech, Sensation intact Psych/Mental Status: Mental status NL, Mood NL MUSCULOSKELETAL: No deformity, No swelling Vitals VITALS Vital Signs Date Time Temp Pulse Resp B/P (MAP) Pulse Ox O2 Delivery O2 Flow Rate FiO2 12/07/16 13:19 20 99 Room Air 12/07/16 12:25 98.0 95 140/74 (96) 98.0 Labs Labs Laboratory Tests Test 12/07/16 09:22 12/07/16 09:32 Urine Collection Type Unknown Urine Color Yellow Urine Clarity Clear Urine pH 6.0 Urine Specific [place] 1.015 Urine Protein Negative mg/dL (NEG-TRACE) Urine Glucose (UA) Negative mg/dL (NEG) Urine Ketones (Stick) Negative mg/dL (NEG) Urine Blood Small (NEG) Urine Nitrite Negative (NEG) Urine Bilirubin Negative (NEG) Urine Urobilinogen Dipstick 0.2 mg/dL (0.2 mg/dL) Urine Leukocyte Esterase Trace (NEG) Urine RBC 1-2 /HPF (0-2) Urine WBC 5-10 /HPF (0-4) Urine Squamous Epithelial Cells Mod /LPF Urine Bacteria Moderate /HPF (0-FEW) White Blood Count 11.0 x10^3/uL (4.0-11.0) Red Blood Count 3.85 x10^6/uL (3.50-5.40) Hemoglobin 9.2 g/dL (12.0-15.5) Hematocrit 28.8 % (36.0-47.0) Mean Corpuscular Volume 75 fL (79-100) Mean Corpuscular Hemoglobin 24 pg (25-35) Mean Corpuscular Hemoglobin Concent 32 g/dL (31-37) Red Cell Distribution Width 15.6 % (11.5-14.5) Platelet Count 465 x10^3/uL (140-400) Neutrophils (%) (Auto) 45 % (31-73) Lymphocytes (%) (Auto) 44 % (24-48) Monocytes (%) (Auto) 6 % (0-9) Eosinophils (%) (Auto) 4 % (0-3) Basophils (%) (Auto) 1 % (0-3) Neutrophils # (Auto) 5.0 x10^3uL (1.8-7.7) Lymphocytes # (Auto) 4.9 x10^3/uL (1.0-4.8) Monocytes # (Auto) 0.6 x10^3/uL (0.0-1.1) Eosinophils # (Auto) 0.4 x10^3/uL (0.0-0.7) Basophils # (Auto) 0.1 x10^3/uL (0.0-0.2) Sodium Level 142 mmol/L (136-145) Potassium Level 3.3 mmol/L (3.5-5.1) Chloride Level 110 mmol/L (98-107) Carbon Dioxide Level 20 mmol/L (21-32) Anion Gap 12 (6-14) Blood Urea Nitrogen 23 mg/dL (7-20) Creatinine 1.5 mg/dL (0.6-1.0) Estimated GFR (Cockcroft-Gault) 34.4 BUN/Creatinine Ratio 15 (6-20) Glucose Level 85 mg/dL (70-99) Calcium Level 8.3 mg/dL (8.5-10.1) Total Bilirubin 0.8 mg/dL (0.2-1.0) Aspartate Amino Transf (AST/SGOT) 16 U/L (15-37) Alanine Aminotransferase (ALT/SGPT) 24 U/L (14-59) Alkaline Phosphatase 151 U/L (46-116) Total Protein 6.8 g/dL (6.4-8.2) Albumin 2.6 g/dL (3.4-5.0) Albumin/Globulin Ratio 0.6 (1.0-1.7) Laboratory Tests Test 12/07/16 09:22 12/07/16 09:32 Urine Collection Type Unknown Urine Color Yellow Urine Clarity Clear Urine pH 6.0 Urine Specific [place] 1.015 Urine Protein Negative mg/dL (NEG-TRACE) Urine Glucose (UA) Negative mg/dL (NEG) Urine Ketones (Stick) Negative mg/dL (NEG) Urine Blood Small (NEG) Urine Nitrite Negative (NEG) Urine Bilirubin Negative (NEG) Urine Urobilinogen Dipstick 0.2 mg/dL (0.2 mg/dL) Urine Leukocyte Esterase Trace (NEG) Urine RBC 1-2 /HPF (0-2) Urine WBC 5-10 /HPF (0-4) Urine Squamous Epithelial Cells Mod /LPF Urine Bacteria Moderate /HPF (0-FEW) White Blood Count 11.0 x10^3/uL (4.0-11.0) Red Blood Count 3.85 x10^6/uL (3.50-5.40) Hemoglobin 9.2 g/dL (12.0-15.5) Hematocrit 28.8 % (36.0-47.0) Mean Corpuscular Volume 75 fL (79-100) Mean Corpuscular Hemoglobin 24 pg (25-35) Mean Corpuscular Hemoglobin Concent 32 g/dL (31-37) Red Cell Distribution Width 15.6 % (11.5-14.5) Platelet Count 465 x10^3/uL (140-400) Neutrophils (%) (Auto) 45 % (31-73) Lymphocytes (%) (Auto) 44 % (24-48) Monocytes (%) (Auto) 6 % (0-9) Eosinophils (%) (Auto) 4 % (0-3) Basophils (%) (Auto) 1 % (0-3) Neutrophils # (Auto) 5.0 x10^3uL (1.8-7.7) Lymphocytes # (Auto) 4.9 x10^3/uL (1.0-4.8) Monocytes # (Auto) 0.6 x10^3/uL (0.0-1.1) Eosinophils # (Auto) 0.4 x10^3/uL (0.0-0.7) Basophils # (Auto) 0.1 x10^3/uL (0.0-0.2) Sodium Level 142 mmol/L (136-145) Potassium Level 3.3 mmol/L (3.5-5.1) Chloride Level 110 mmol/L (98-107) Carbon Dioxide Level 20 mmol/L (21-32) Anion Gap 12 (6-14) Blood Urea Nitrogen 23 mg/dL (7-20) Creatinine 1.5 mg/dL (0.6-1.0) Estimated GFR (Cockcroft-Gault) 34.4 BUN/Creatinine Ratio 15 (6-20) Glucose Level 85 mg/dL (70-99) Calcium Level 8.3 mg/dL (8.5-10.1) Total Bilirubin 0.8 mg/dL (0.2-1.0) Aspartate Amino Transf (AST/SGOT) 16 U/L (15-37) Alanine Aminotransferase (ALT/SGPT) 24 U/L (14-59) Alkaline Phosphatase 151 U/L (46-116) Total Protein 6.8 g/dL (6.4-8.2) Albumin 2.6 g/dL (3.4-5.0) Albumin/Globulin Ratio 0.6 (1.0-1.7) Assessment/Plan Assessment/Plan abdominal pain, LLQ, left flank s/p ERCP, stent, liver bx at [facility] crohns, stricture CT showing thickening transverse colon multiple renal calculi on right, no obstructive uropathy will review with RANJANA Huber MD 12/07/16 1512: CONSULT Allergies Allergies: Coded Allergies: codeine (Verified Allergy, Severe, Shortness of Air, 11/12/16) tolerates morphine and hydrocodone oxycodone (Verified Allergy, Severe, soa, 11/12/16) tolerates morphine and hydrocodone Iodinated Contrast Media - Oral and (Verified Allergy, Intermediate, Rash , 11/12/16) Penicillins (Verified Allergy, Intermediate, rash, 11/12/16) barium sulfate (Verified Allergy, Intermediate, hives, 11/12/16) Assessment/Plan Assessment/Plan Pt seen and examined. Agree with Ms. Gimenez's note Pt reports left back pain concern for possible urinary source of pain LFTs much improved will defer to GI on further management, but would be available to consider colon resection, if appropriate. Thanks for consult! DEAN GIMENEZ APRN December 07, 2016 14:07 RANJANA PEREZ MD December 07, 2016 15:12
[2016-12-07 15:00] VITALS: BP 131/62
--- NOTE | 2016-12-07 15:04 | PDOC2 ---
GI CONSULT Reason For Consult: Stricture HPI: HPI: 71 y/o female known to GI, evaluated in ER for left flank pain that began at 5: 00 p.m. yesterday, rated 10/10. Some nausea. H/o nephrolithiasis, attributed pain to this, came to ER for further eval. Additional h/o central/lower abd pain that is stable/unchanged. GI history significant for Crohn's on Remicade Q 6 weeks, last infusion 12/01, last colonoscopy (Dr. Merino) within the past few months w/ stricture, has also seen Dr. Perez. Says was recently started on Amitiza 8mcg BID w/ Dr. Kaminski, plans to monitor symptoms on this prior to surgical intervention for stricture. Last stool yesterday, loose which is her usual. Last admission for abnormal LFTs, dilated CBD, and abnormal CT had attempted ERCP. Since than had ERCP w/ stent placement and liver biopsy at [facility]. Additional h/o GERD on lansoprazole QD. LFTs normal this admission except for elevated Alk Phos (151) which is improved from last admission. CT shows thickening of distal transverse colon, bilateral intrarenal calculi and right renal pelvis calculi (stable, no obstruction), and right kidney cysts. Received IV atbx in ER. Daughter present, has a lot of questions about causes for pain. PMH: PMH: HTN, asthma, cervical cancer, PE, DVT, OA, appendectomy, cholecystectomy, cystoscopy, , tubal ligation, hysterectomy, bowel resection x 2, exploratory lap, right heel surgery FH: Family History: No pertinent hx Social History: Smoke: Quit ALCOHOL: social Drugs: None ROS: GEN: Denies fevers, chills, sweats HEENT: Denies blurred vision, sore throat CV: Denies chest pain RESP: Denies shortness of air, cough GI: Per HPI : Denies hematuria, dysuria ENDO: Denies weight changes NEURO: Denies confusion, dizziness MSK: right leg swelling SKIN: Denies jaundice, pruritus Vitals: Vitals: Vital Signs Date Time Temp Pulse Resp B/P (MAP) Pulse Ox O2 Delivery O2 Flow Rate FiO2 12/07/16 13:19 20 99 Room Air 12/07/16 12:25 98.0 95 140/74 (96) 98.0 Labs: Labs: Laboratory Tests Test 12/07/16 09:22 12/07/16 09:32 Urine Collection Type Unknown Urine Color Yellow Urine Clarity Clear Urine pH 6.0 Urine Specific [place] 1.015 Urine Protein Negative mg/dL (NEG-TRACE) Urine Glucose (UA) Negative mg/dL (NEG) Urine Ketones (Stick) Negative mg/dL (NEG) Urine Blood Small (NEG) Urine Nitrite Negative (NEG) Urine Bilirubin Negative (NEG) Urine Urobilinogen Dipstick 0.2 mg/dL (0.2 mg/dL) Urine Leukocyte Esterase Trace (NEG) Urine RBC 1-2 /HPF (0-2) Urine WBC 5-10 /HPF (0-4) Urine Squamous Epithelial Cells Mod /LPF Urine Bacteria Moderate /HPF (0-FEW) White Blood Count 11.0 x10^3/uL (4.0-11.0) Red Blood Count 3.85 x10^6/uL (3.50-5.40) Hemoglobin 9.2 g/dL (12.0-15.5) Hematocrit 28.8 % (36.0-47.0) Mean Corpuscular Volume 75 fL (79-100) Mean Corpuscular Hemoglobin 24 pg (25-35) Mean Corpuscular Hemoglobin Concent 32 g/dL (31-37) Red Cell Distribution Width 15.6 % (11.5-14.5) Platelet Count 465 x10^3/uL (140-400) Neutrophils (%) (Auto) 45 % (31-73) Lymphocytes (%) (Auto) 44 % (24-48) Monocytes (%) (Auto) 6 % (0-9) Eosinophils (%) (Auto) 4 % (0-3) Basophils (%) (Auto) 1 % (0-3) Neutrophils # (Auto) 5.0 x10^3uL (1.8-7.7) Lymphocytes # (Auto) 4.9 x10^3/uL (1.0-4.8) Monocytes # (Auto) 0.6 x10^3/uL (0.0-1.1) Eosinophils # (Auto) 0.4 x10^3/uL (0.0-0.7) Basophils # (Auto) 0.1 x10^3/uL (0.0-0.2) Sodium Level 142 mmol/L (136-145) Potassium Level 3.3 mmol/L (3.5-5.1) Chloride Level 110 mmol/L (98-107) Carbon Dioxide Level 20 mmol/L (21-32) Anion Gap 12 (6-14) Blood Urea Nitrogen 23 mg/dL (7-20) Creatinine 1.5 mg/dL (0.6-1.0) Estimated GFR (Cockcroft-Gault) 34.4 BUN/Creatinine Ratio 15 (6-20) Glucose Level 85 mg/dL (70-99) Calcium Level 8.3 mg/dL (8.5-10.1) Total Bilirubin 0.8 mg/dL (0.2-1.0) Aspartate Amino Transf (AST/SGOT) 16 U/L (15-37) Alanine Aminotransferase (ALT/SGPT) 24 U/L (14-59) Alkaline Phosphatase 151 U/L (46-116) Total Protein 6.8 g/dL (6.4-8.2) Albumin 2.6 g/dL (3.4-5.0) Albumin/Globulin Ratio 0.6 (1.0-1.7) Allergies: Coded Allergies: codeine (Verified Allergy, Severe, Shortness of Air, 11/12/16) tolerates morphine and hydrocodone oxycodone (Verified Allergy, Severe, soa, 11/12/16) tolerates morphine and hydrocodone Iodinated Contrast Media - Oral and (Verified Allergy, Intermediate, Rash , 11/12/16) Penicillins (Verified Allergy, Intermediate, rash, 11/12/16) barium sulfate (Verified Allergy, Intermediate, hives, 11/12/16) Medications: Current Medications Medications (Trade) Dose Ordered Sig/Jazmin Route PRN Reason Start Time Stop Time Status Last Admin Dose Admin Ketorolac Tromethamine (Toradol) 15 mg 1X ONCE IV 12/07/16 09:15 12/07/16 09:16 DC 12/07/16 09:34 Fentanyl Citrate (Fentanyl 2ml Vial) 75 mcg 1X ONCE IV 12/07/16 09:15 12/07/16 09:16 DC 12/07/16 09:34 Fentanyl Citrate (Fentanyl 2ml Vial) 75 mcg 1X ONCE IV 12/07/16 10:45 12/07/16 10:46 DC 12/07/16 10:38 Levofloxacin/ Dextrose 100 ml @ 100 mls/hr 1X ONCE IV 12/07/16 11:15 12/07/16 12:14 DC 12/07/16 11:35 Morphine Sulfate 5 mg 1X ONCE IV 12/07/16 11:15 12/07/16 11:16 DC 12/07/16 11:34 Fentanyl Citrate (Fentanyl 2ml Vial) 50 mcg PRN Q1HR PRN IV PAIN 12/07/16 12:30 12/08/16 12:29 12/07/16 13:19 Imaging: Imaging: CT A/P w/o contrast 12/07/16 Impression: 1. There is mild to moderate thickened appearance of the distal transverse colon with minimal surrounding fat stranding. Differential includes mild colitis however underlying mucosal pathology such as neoplasm is not completely excluded. 2. Multiple bilateral intrarenal collecting system calculi and right renal pelvis calculi grossly similar to prior exam. 3. Multiple cystic structures identified in the right kidney probably cysts similar to prior exam. CT A/P 11/10/16 IMPRESSION: 1. Status post cholecystectomy. 2. Dilatation of the common bile duct and intrahepatic bile ducts greater than that seen on 09/29/2016. Is there laboratory evidence of active biliary tract obstruction? 3. Numerous bilateral nonobstructing intrarenal calculi. 4. Mild dilatation of several small bowel segments likely related to the history of Crohn's disease. No definite bowel obstruction is seen. MRCP 11/11/16 IMPRESSION: 1. Status post cholecystectomy. 2. Dilatation of the central intrahepatic ducts and common bile duct without evidence of an obstructing calculus or mass. PE: GEN: NAD HEENT: Atraumatic, PERRL LUNGS: CTAB anteriorly HEART: RRR ABD: BS+, not particularly tender EXTREMITY: trace BLE edema, more-so in RLE SKIN: No rashes, no jaundice NEURO/PSYCH: A & O 3 MSK: left flank discomfort A/P: A/P: Crohn's disease w/ stricture -on Remicade Q 6 weeks, previous resections, recent colonoscopy w/ stricture -on Amitiza, having loose stools daily (normal consistency for her) Chronic abd pain -"Crohn's pain," BLQ/periumbilical - stable -recently had ERCP w/ stent and liver biopsy at Left flank pain -new last night, similar to previous pain associated w/ nephrolithiasis Abnormal CT -possible colitis, also note non-obstructive nephrolithiasis -- D/w Dr. Kaminski. Will ask urology to see re: 8mm renal stone - note this is on the right side and her pain is currently left-sided. ?left flank pain associated w/ stricture - continue Amitiza and await surgical opinion. MAI CURRY December 07, 2016 15:04
[2016-12-07] MEDS: LUBIPROSTONE 8 MCG CAPSULE PO SCH (17:23)
[2016-12-07 19:54] VITALS: BP 105/53
[2016-12-07] MEDS ORDERED: CALCIUM CARBONATE 500 MG TAB.CHEW PO PRN (23:00)
[2016-12-07] MEDS ORDERED: PANTOPRAZOLE 40 MG TABLET.DR. PO ONE (23:30)
[2016-12-07 23:38] VITALS: BP 120/71
[2016-12-08 03:36] VITALS: BP 122/65
[2016-12-08 04:28] LABS: BASO % 0 % (0-3); EOS % 6 % (0-3); HEMATOCRIT 24.1 % (36.0-47.0); HEMOGLOBIN 7.9 g/dL (12.0-15.5); LYMPH # 2.9 x10^3/uL (1.0-4.8); LYMPH % 44 % (24-48); MEAN CORPUSCULAR HEMOGLOBIN 24 pg (25-35); MEAN CORPUSCULAR HGB CONC 33 g/dL (31-37); MEAN CORPUSCULAR VOLUME 74 fL (79-100); MONO % 8 % (0-9); NEUT % 43 % (31-73); PLATELET COUNT 307 x10^3/uL (140-400); RED BLOOD COUNT 3.26 x10^6/uL (3.50-5.40); RED CELL DISTRIBUTION WIDTH 15.3 % (11.5-14.5); WHITE BLOOD COUNT 6.7 x10^3/uL (4.0-11.0)
[2016-12-08 04:47] LABS: CALCIUM 8.2 mg/dL (8.5-10.1); CREATININE 1.4 mg/dL (0.6-1.0); GFR 37.3; POTASSIUM 3.9 mmol/L (3.5-5.1)
[2016-12-08 07:16] VITALS: BP 120/67
[2016-12-08] MEDS: LUBIPROSTONE 8 MCG CAPSULE PO SCH (07:28)
[2016-12-08] MEDS ORDERED: PANTOPRAZOLE 40 MG TABLET.DR. PO SCH ×2 (07:30→11:30)
[2016-12-08] MEDS ORDERED: NON FORMULARY ITEM (Albuterol Sulfate (Proair Hfa Inhaler) 1 PUFF) INH PRN (08:30)
--- NOTE | 2016-12-08 08:44 | PDOC ---
Provider Note Provider Note [id number] KENZIE STERLING MD December 08, 2016 08:44
[2016-12-08] MEDS ORDERED: ALBUTEROL SULFATE 2.5 MG/3 ML NEBU. NEB PRN (08:45)
--- NOTE | 2016-12-08 08:45 | DISCH ---
DISCHARGE INSTRUCTIONS Condition on Discharge Condition on Discharge: Stable Activity After Discharge Activity Instructions for Disc: No restrictions Diet after Discharge Diet after Discharge: Regular Follow-Up Follow up with: KENZIE Toro MD December 08, 2016 08:45
[2016-12-08] MEDS ORDERED: LUBIPROSTONE 8 MCG CAPSULE PO SCH (09:00)
--- NOTE | 2016-12-08 09:27 | PDOC ---
DEAN LEMA [employer] 12/08/16926: SURGICAL PROGRESS NOTE Subjective tolerating diet no pain now Vital Signs Vital Signs Date Time Temp Pulse Resp B/P (MAP) Pulse Ox O2 Delivery O2 Flow Rate FiO2 12/08/16 07:34 Room Air 12/08/16 07:16 98.0 89 19 120/67 (84) 100 98.0 I&O Intake and Output 12/08/16 07:00 Intake Total 670 ml Output Total 950 ml Balance -280 ml Intake Oral 670 ml Output Urine Total 950 ml # Voids 2 General: Alert, Oriented X3, Cooperative, No acute distress Abdomen: Soft, No tenderness Labs Laboratory Tests Test 12/07/16 09:22 12/07/16 09:32 12/08/16 03:40 Urine Collection Type Unknown Urine Color Yellow Urine Clarity Clear Urine pH 6.0 Urine Specific [place] 1.015 Urine Protein Negative mg/dL (NEG-TRACE) Urine Glucose (UA) Negative mg/dL (NEG) Urine Ketones (Stick) Negative mg/dL (NEG) Urine Blood Small (NEG) Urine Nitrite Negative (NEG) Urine Bilirubin Negative (NEG) Urine Urobilinogen Dipstick 0.2 mg/dL (0.2 mg/dL) Urine Leukocyte Esterase Trace (NEG) Urine RBC 1-2 /HPF (0-2) Urine WBC 5-10 /HPF (0-4) Urine Squamous Epithelial Cells Mod /LPF Urine Bacteria Moderate /HPF (0-FEW) White Blood Count 11.0 x10^3/uL (4.0-11.0) 6.7 x10^3/uL (4.0-11.0) Red Blood Count 3.85 x10^6/uL (3.50-5.40) 3.26 x10^6/uL (3.50-5.40) Hemoglobin 9.2 g/dL (12.0-15.5) 7.9 g/dL (12.0-15.5) Hematocrit 28.8 % (36.0-47.0) 24.1 % (36.0-47.0) Mean Corpuscular Volume 75 fL (79-100) 74 fL (79-100) Mean Corpuscular Hemoglobin 24 pg (25-35) 24 pg (25-35) Mean Corpuscular Hemoglobin Concent 32 g/dL (31-37) 33 g/dL (31-37) Red Cell Distribution Width 15.6 % (11.5-14.5) 15.3 % (11.5-14.5) Platelet Count 465 x10^3/uL (140-400) 307 x10^3/uL (140-400) Neutrophils (%) (Auto) 45 % (31-73) 43 % (31-73) Lymphocytes (%) (Auto) 44 % (24-48) 44 % (24-48) Monocytes (%) (Auto) 6 % (0-9) 8 % (0-9) Eosinophils (%) (Auto) 4 % (0-3) 6 % (0-3) Basophils (%) (Auto) 1 % (0-3) 0 % (0-3) Neutrophils # (Auto) 5.0 x10^3uL (1.8-7.7) 2.8 x10^3uL (1.8-7.7) Lymphocytes # (Auto) 4.9 x10^3/uL (1.0-4.8) 2.9 x10^3/uL (1.0-4.8) Monocytes # (Auto) 0.6 x10^3/uL (0.0-1.1) 0.5 x10^3/uL (0.0-1.1) Eosinophils # (Auto) 0.4 x10^3/uL (0.0-0.7) 0.4 x10^3/uL (0.0-0.7) Basophils # (Auto) 0.1 x10^3/uL (0.0-0.2) 0.0 x10^3/uL (0.0-0.2) Sodium Level 142 mmol/L (136-145) 144 mmol/L (136-145) Potassium Level 3.3 mmol/L (3.5-5.1) 3.9 mmol/L (3.5-5.1) Chloride Level 110 mmol/L (98-107) 113 mmol/L (98-107) Carbon Dioxide Level 20 mmol/L (21-32) 22 mmol/L (21-32) Anion Gap 12 (6-14) 9 (6-14) Blood Urea Nitrogen 23 mg/dL (7-20) 19 mg/dL (7-20) Creatinine 1.5 mg/dL (0.6-1.0) 1.4 mg/dL (0.6-1.0) Estimated GFR (Cockcroft-Gault) 34.4 37.3 BUN/Creatinine Ratio 15 (6-20) Glucose Level 85 mg/dL (70-99) 91 mg/dL (70-99) Calcium Level 8.3 mg/dL (8.5-10.1) 8.2 mg/dL (8.5-10.1) Total Bilirubin 0.8 mg/dL (0.2-1.0) Aspartate Amino Transf (AST/SGOT) 16 U/L (15-37) Alanine Aminotransferase (ALT/SGPT) 24 U/L (14-59) Alkaline Phosphatase 151 U/L (46-116) Total Protein 6.8 g/dL (6.4-8.2) Albumin 2.6 g/dL (3.4-5.0) Albumin/Globulin Ratio 0.6 (1.0-1.7) Laboratory Tests Test 12/07/16 09:32 12/08/16 03:40 White Blood Count 11.0 x10^3/uL (4.0-11.0) 6.7 x10^3/uL (4.0-11.0) Red Blood Count 3.85 x10^6/uL (3.50-5.40) 3.26 x10^6/uL (3.50-5.40) Hemoglobin 9.2 g/dL (12.0-15.5) 7.9 g/dL (12.0-15.5) Hematocrit 28.8 % (36.0-47.0) 24.1 % (36.0-47.0) Mean Corpuscular Volume 75 fL (79-100) 74 fL (79-100) Mean Corpuscular Hemoglobin 24 pg (25-35) 24 pg (25-35) Mean Corpuscular Hemoglobin Concent 32 g/dL (31-37) 33 g/dL (31-37) Red Cell Distribution Width 15.6 % (11.5-14.5) 15.3 % (11.5-14.5) Platelet Count 465 x10^3/uL (140-400) 307 x10^3/uL (140-400) Neutrophils (%) (Auto) 45 % (31-73) 43 % (31-73) Lymphocytes (%) (Auto) 44 % (24-48) 44 % (24-48) Monocytes (%) (Auto) 6 % (0-9) 8 % (0-9) Eosinophils (%) (Auto) 4 % (0-3) 6 % (0-3) Basophils (%) (Auto) 1 % (0-3) 0 % (0-3) Neutrophils # (Auto) 5.0 x10^3uL (1.8-7.7) 2.8 x10^3uL (1.8-7.7) Lymphocytes # (Auto) 4.9 x10^3/uL (1.0-4.8) 2.9 x10^3/uL (1.0-4.8) Monocytes # (Auto) 0.6 x10^3/uL (0.0-1.1) 0.5 x10^3/uL (0.0-1.1) Eosinophils # (Auto) 0.4 x10^3/uL (0.0-0.7) 0.4 x10^3/uL (0.0-0.7) Basophils # (Auto) 0.1 x10^3/uL (0.0-0.2) 0.0 x10^3/uL (0.0-0.2) Sodium Level 142 mmol/L (136-145) 144 mmol/L (136-145) Potassium Level 3.3 mmol/L (3.5-5.1) 3.9 mmol/L (3.5-5.1) Chloride Level 110 mmol/L (98-107) 113 mmol/L (98-107) Carbon Dioxide Level 20 mmol/L (21-32) 22 mmol/L (21-32) Anion Gap 12 (6-14) 9 (6-14) Blood Urea Nitrogen 23 mg/dL (7-20) 19 mg/dL (7-20) Creatinine 1.5 mg/dL (0.6-1.0) 1.4 mg/dL (0.6-1.0) Estimated GFR (Cockcroft-Gault) 34.4 37.3 BUN/Creatinine Ratio 15 (6-20) Glucose Level 85 mg/dL (70-99) 91 mg/dL (70-99) Calcium Level 8.3 mg/dL (8.5-10.1) 8.2 mg/dL (8.5-10.1) Total Bilirubin 0.8 mg/dL (0.2-1.0) Aspartate Amino Transf (AST/SGOT) 16 U/L (15-37) Alanine Aminotransferase (ALT/SGPT) 24 U/L (14-59) Alkaline Phosphatase 151 U/L (46-116) Total Protein 6.8 g/dL (6.4-8.2) Albumin 2.6 g/dL (3.4-5.0) Albumin/Globulin Ratio 0.6 (1.0-1.7) Problem List Problems Medical Problems: (1) Colitis Status: Acute (2) Flank pain Status: Acute (3) Intractable pain Status: Acute Assessment/Plan llq abdominal and flank pain now resolved, ? stone GI follow up Crohns no surgical plans at this time Problems: RANJANA PEDROZA MD 12/08/16 0931: SURGICAL PROGRESS NOTE Assessment/Plan Pt seen and examined. Agree with Ms. Lema's note Pt feels much better today agree with possible stone passage OK to d/c f/u with GI for possible stenosis evaluation and treatment Problems: DEAN LEMA APRN December 08, 2016 09:27 RANJANA PEDROZA MD December 08, 2016 09:31
[2016-12-08 09:38] LABS: INR 1.6 (0.8-1.1); PROTHROMBIN TIME PATIENT 18.1 SEC (11.7-14.0)
--- NOTE | 2016-12-08 10:03 | SSS ---
ADMIT DATE: 12/08/2016 HOSPITAL SUMMARY: A 71-year-old white female came in with several hours of left flank pain that she felt was similar to kidney stone pain she had had in the past. While she was in the Emergency Room, the pain resolved without symptoms. CT scan showed bilateral intrarenal calculi with no sign of hydronephrosis or any other significant pathology except some narrowing of the distal transverse colon which has been previously seen. Chemistry profile, CBC and urinalysis were unremarkable. She has been eating and drinking and feeling better and comfortable to be followed as an outpatient at this point. FINAL DIAGNOSES: 1. Left flank pain, likely secondary to transient left ureteral stone. 2. History of distal transverse colon stricture secondary to Crohn's disease. 3. Anemia of chronic disease. OPERATIONS, PROCEDURES, COMPLICATIONS: None. CONSULTATION: Dr. Kaminski and Dr. Perez. DISPOSITION: All meds remain the same. She says she is feeling better since she has been on Amitiza twice a day for the last several days to help stools and allow passage through the stricture. She is back on warfarin as well. She is aware that she may well need a colon resection in the future, but is comfortable to continue trying this strategy as an outpatient. Good fluid intake and activity as tolerated. KENZIE STERLING MD DR: ANGELA/aster JOB#: [id number] / [id number]
--- NOTE | 2016-12-08 10:04 | PDOC ---
Subjective: Subjective: Left flank pain resolved, feeling much better, ready to DC. Objective: Objective: Urology has not seen yet. Vital Signs: Vital Signs Date Time Temp Pulse Resp B/P (MAP) Pulse Ox O2 Delivery O2 Flow Rate FiO2 12/08/16 07:34 Room Air 12/08/16 07:16 98.0 89 19 120/67 (84) 100 98.0 Labs: Laboratory Tests Test 12/08/16 03:40 12/08/16 09:00 White Blood Count 6.7 x10^3/uL Red Blood Count 3.26 x10^6/uL Hemoglobin 7.9 g/dL Hematocrit 24.1 % Mean Corpuscular Volume 74 fL Mean Corpuscular Hemoglobin 24 pg Mean Corpuscular Hemoglobin Concent 33 g/dL Red Cell Distribution Width 15.3 % Platelet Count 307 x10^3/uL Neutrophils (%) (Auto) 43 % Lymphocytes (%) (Auto) 44 % Monocytes (%) (Auto) 8 % Eosinophils (%) (Auto) 6 % Basophils (%) (Auto) 0 % Neutrophils # (Auto) 2.8 x10^3uL Lymphocytes # (Auto) 2.9 x10^3/uL Monocytes # (Auto) 0.5 x10^3/uL Eosinophils # (Auto) 0.4 x10^3/uL Basophils # (Auto) 0.0 x10^3/uL Sodium Level 144 mmol/L Potassium Level 3.9 mmol/L Chloride Level 113 mmol/L Carbon Dioxide Level 22 mmol/L Anion Gap 9 Blood Urea Nitrogen 19 mg/dL Creatinine 1.4 mg/dL Estimated GFR (Cockcroft-Gault) 37.3 Glucose Level 91 mg/dL Calcium Level 8.2 mg/dL Prothrombin Time 18.1 SEC Prothromb Time International Ratio 1.6 PE: GEN: NAD, looks much better LUNGS: CTAB HEART: RRR ABD: NABS, S/ND/NT NEURO/PSYCH: A & O 3 A/P: Crohn's disease w/ stricture -on Remicade Q 6 weeks, previous resections, recent colonoscopy w/ stricture -recently started Amitiza, doing well w/ this -has seen Dr. Perez, no surgical plans Left flank pain - resolved Nephrolithiasis -- Okay to DC per GI. Provided Amitiza Rx. She will follow-up for Remicade or call the office w/ concerns before then. MAI CURRY December 08, 2016 10:04
[2016-12-08 10:36] VITALS: BP 102/54
--- NOTE | 2016-12-08 12:39 | PDOC ---
PROGRESS NOTES Subjective Subjective Pt. with bilateral nephrolithiasis Objective Objective Vital Signs Date Time Temp Pulse Resp B/P (MAP) Pulse Ox O2 Delivery O2 Flow Rate FiO2 12/08/16 10:36 98.1 90 18 102/54 (70) 97 Room Air 98.1 Intake and Output 12/08/16 07:00 Intake Total 670 ml Output Total 950 ml Balance -280 ml Intake Oral 670 ml Output Urine Total 950 ml # Voids 2 Physical Exam Physical Exam No ureteral stones. large stone burden in right renal pelvis-asymptomatic Plan Plan of Care I discussed pt's stones with her. Pt. has had previous left PCNL in the past. I recommend that Pt. f/u with Dr. Macario or Dr. Milan at urology in next 2- 4 weeks to discuss possible right PCNL. Problems Medical Problems: (1) Colitis Status: Acute (2) Flank pain Status: Acute (3) Intractable pain Status: Acute Comment Review of Relevant I have reviewed the following items katarzyna (where applicable) has been applied. Labs Laboratory Tests Test 12/07/16 09:22 12/07/16 09:32 12/08/16 03:40 12/08/16 09:00 Urine Collection Type Unknown Urine Color Yellow Urine Clarity Clear Urine pH 6.0 Urine Specific Souris 1.015 Urine Protein Negative mg/dL (NEG-TRACE) Urine Glucose (UA) Negative mg/dL (NEG) Urine Ketones (Stick) Negative mg/dL (NEG) Urine Blood Small (NEG) Urine Nitrite Negative (NEG) Urine Bilirubin Negative (NEG) Urine Urobilinogen Dipstick 0.2 mg/dL (0.2 mg/dL) Urine Leukocyte Esterase Trace (NEG) Urine RBC 1-2 /HPF (0-2) Urine WBC 5-10 /HPF (0-4) Urine Squamous Epithelial Cells Mod /LPF Urine Bacteria Moderate /HPF (0-FEW) White Blood Count 11.0 x10^3/uL (4.0-11.0) 6.7 x10^3/uL (4.0-11.0) Red Blood Count 3.85 x10^6/uL (3.50-5.40) 3.26 x10^6/uL (3.50-5.40) Hemoglobin 9.2 g/dL (12.0-15.5) 7.9 g/dL (12.0-15.5) Hematocrit 28.8 % (36.0-47.0) 24.1 % (36.0-47.0) Mean Corpuscular Volume 75 fL (79-100) 74 fL (79-100) Mean Corpuscular Hemoglobin 24 pg (25-35) 24 pg (25-35) Mean Corpuscular Hemoglobin Concent 32 g/dL (31-37) 33 g/dL (31-37) Red Cell Distribution Width 15.6 % (11.5-14.5) 15.3 % (11.5-14.5) Platelet Count 465 x10^3/uL (140-400) 307 x10^3/uL (140-400) Neutrophils (%) (Auto) 45 % (31-73) 43 % (31-73) Lymphocytes (%) (Auto) 44 % (24-48) 44 % (24-48) Monocytes (%) (Auto) 6 % (0-9) 8 % (0-9) Eosinophils (%) (Auto) 4 % (0-3) 6 % (0-3) Basophils (%) (Auto) 1 % (0-3) 0 % (0-3) Neutrophils # (Auto) 5.0 x10^3uL (1.8-7.7) 2.8 x10^3uL (1.8-7.7) Lymphocytes # (Auto) 4.9 x10^3/uL (1.0-4.8) 2.9 x10^3/uL (1.0-4.8) Monocytes # (Auto) 0.6 x10^3/uL (0.0-1.1) 0.5 x10^3/uL (0.0-1.1) Eosinophils # (Auto) 0.4 x10^3/uL (0.0-0.7) 0.4 x10^3/uL (0.0-0.7) Basophils # (Auto) 0.1 x10^3/uL (0.0-0.2) 0.0 x10^3/uL (0.0-0.2) Sodium Level 142 mmol/L (136-145) 144 mmol/L (136-145) Potassium Level 3.3 mmol/L (3.5-5.1) 3.9 mmol/L (3.5-5.1) Chloride Level 110 mmol/L (98-107) 113 mmol/L (98-107) Carbon Dioxide Level 20 mmol/L (21-32) 22 mmol/L (21-32) Anion Gap 12 (6-14) 9 (6-14) Blood Urea Nitrogen 23 mg/dL (7-20) 19 mg/dL (7-20) Creatinine 1.5 mg/dL (0.6-1.0) 1.4 mg/dL (0.6-1.0) Estimated GFR (Cockcroft-Gault) 34.4 37.3 BUN/Creatinine Ratio 15 (6-20) Glucose Level 85 mg/dL (70-99) 91 mg/dL (70-99) Calcium Level 8.3 mg/dL (8.5-10.1) 8.2 mg/dL (8.5-10.1) Total Bilirubin 0.8 mg/dL (0.2-1.0) Aspartate Amino Transf (AST/SGOT) 16 U/L (15-37) Alanine Aminotransferase (ALT/SGPT) 24 U/L (14-59) Alkaline Phosphatase 151 U/L (46-116) Total Protein 6.8 g/dL (6.4-8.2) Albumin 2.6 g/dL (3.4-5.0) Albumin/Globulin Ratio 0.6 (1.0-1.7) Prothrombin Time 18.1 SEC (11.7-14.0) Prothromb Time International Ratio 1.6 (0.8-1.1) Laboratory Tests Test 12/08/16 03:40 12/08/16 09:00 White Blood Count 6.7 x10^3/uL (4.0-11.0) Red Blood Count 3.26 x10^6/uL (3.50-5.40) Hemoglobin 7.9 g/dL (12.0-15.5) Hematocrit 24.1 % (36.0-47.0) Mean Corpuscular Volume 74 fL (79-100) Mean Corpuscular Hemoglobin 24 pg (25-35) Mean Corpuscular Hemoglobin Concent 33 g/dL (31-37) Red Cell Distribution Width 15.3 % (11.5-14.5) Platelet Count 307 x10^3/uL (140-400) Neutrophils (%) (Auto) 43 % (31-73) Lymphocytes (%) (Auto) 44 % (24-48) Monocytes (%) (Auto) 8 % (0-9) Eosinophils (%) (Auto) 6 % (0-3) Basophils (%) (Auto) 0 % (0-3) Neutrophils # (Auto) 2.8 x10^3uL (1.8-7.7) Lymphocytes # (Auto) 2.9 x10^3/uL (1.0-4.8) Monocytes # (Auto) 0.5 x10^3/uL (0.0-1.1) Eosinophils # (Auto) 0.4 x10^3/uL (0.0-0.7) Basophils # (Auto) 0.0 x10^3/uL (0.0-0.2) Sodium Level 144 mmol/L (136-145) Potassium Level 3.9 mmol/L (3.5-5.1) Chloride Level 113 mmol/L (98-107) Carbon Dioxide Level 22 mmol/L (21-32) Anion Gap 9 (6-14) Blood Urea Nitrogen 19 mg/dL (7-20) Creatinine 1.4 mg/dL (0.6-1.0) Estimated GFR (Cockcroft-Gault) 37.3 Glucose Level 91 mg/dL (70-99) Calcium Level 8.2 mg/dL (8.5-10.1) Prothrombin Time 18.1 SEC (11.7-14.0) Prothromb Time International Ratio 1.6 (0.8-1.1) Microbiology 12/07/16 Urine Culture - Preliminary, Resulted 12/07/16 Urine Culture Result 1 (TAVARES) - Preliminary, Resulted Medications Current Medications Ketorolac Tromethamine (Toradol) 15 mg 1X ONCE IV Last administered on 09:34; Start 12/07/16 at 09:15; Stop 12/07/16 at 09:16; Status DC Fentanyl Citrate (Fentanyl 2ml Vial) 75 mcg 1X ONCE IV Last administered on 09:34; Start 12/07/16 at 09:15; Stop 12/07/16 at 09:16; Status DC Fentanyl Citrate (Fentanyl 2ml Vial) 75 mcg 1X ONCE IV Last administered on 10:38; Start 12/07/16 at 10:45; Stop 12/07/16 at 10:46; Status DC Levofloxacin/ Dextrose 100 ml @ 100 mls/hr 1X ONCE IV Last administered on 11:35; Start 12/07/16 at 11:15; Stop 12/07/16 at 12:14; Status DC Metronidazole 100 ml @ 100 mls/hr 1X ONCE IV Last administered on 12/07/16 15:32; Start 12/07/16 at 11:15; Stop 12/07/16 at 12:14; Status DC Morphine Sulfate 5 mg 1X ONCE IV Last administered on 12/07/16 11:34; Start 12/07/16 at 11:15; Stop 12/07/16 at 11:16; Status DC Ondansetron HCl (Zofran) 4 mg PRN Q8HRS PRN IV NAUSEA/VOMITING; Start 12/07/16 at 12:30; Stop 12/08/16 at 12:29; Status DC Fentanyl Citrate (Fentanyl 2ml Vial) 50 mcg PRN Q1HR PRN IV PAIN Last administered on 12/07/16 17:23; Start 12/07/16 at 12:30; Stop 12/08/16 at 12:29 ; Status DC Lubiprostone (Amitiza) 8 mcg BIDWMEALS PO Last administered on 12/08/16 07:28 ; Start 12/07/16 at 17:00 Pantoprazole Sodium (Protonix) 40 mg DAILYAC PO Last administered on 12/08/16 07:28; Start 12/08/16 at 07:30 Calcium Carbonate/ Glycine (Tums) 500 mg PRN AFTMEALHC PRN PO INDIGESTION Last administered on 12/07/16 22:57; Start 12/07/16 at 23:00 Pantoprazole Sodium (Protonix) 40 mg 1X ONCE PO Last administered on 23:04; Start 12/07/16 at 23:30; Stop 12/07/16 at 23:31; Status DC Lubiprostone (Amitiza) 8 mcg BIDAC PO ; Start 12/08/16 at 09:00; Stop 12/08/16 at 09:00; Status DC Non-Formulary Medication 1 puff PRN Q6HRS PRN INH SHORTNESS OF BREATH; Start at 08:30; Status UNV Pantoprazole Sodium (Protonix) 40 mg DAILYAC PO ; Start 12/08/16 at 11:30; Stop 12/08/16 at 11:30; Status DC Albuterol Sulfate (Ventolin Neb Soln) 2.5 mg PRN Q6HRS PRN NEB SHORTNESS OF BREATH; Start 12/08/16 at 08:45 Active Scripts Active Reported Claritin (Loratadine) 5 Mg/5 Ml Solution 5 Ml PO DAILY PRN Amitiza (Lubiprostone) 8 Mcg Capsule 1 Cap PO BID Multivitamins (Multivitamin) 1 Each Tablet 1 Tab PO DAILY Cyclobenzaprine Hcl 10 Mg Tablet 1 Tab PO TID PRN Proair Hfa Inhaler (Albuterol Sulfate) 8.5 Gm Hfa.aer.ad 1 Puff INH PRN Q6HRS PRN Vitamin D3 (Cholecalciferol (Vitamin D3)) 5,000 Unit Tablet 1 Tab PO DAILY Remicade (Infliximab) 100 Mg Vial 100 Mg IV UD pt gets infusion every [address] Hoover's office, next dose is December 01, 2016 Lansoprazole 30 Mg Capsule. 1 Cap PO DAILY Coumadin (Warfarin Sodium) 6 Mg Tablet 1 Tab PO DAILY Vitals/I & O Vital Sign - Last 24 Hours 12/07/16 12/07/16 12/07/16 12/07/16 13:19 14:52 15:00 17:23 Temp 97.5 97.5 Pulse 85 Resp 20 18 18 B/P (MAP) 131/62 (85) Pulse Ox 99 97 97 O2 Delivery Room Air Room Air Room Air Room Air 12/07/16 12/07/16 12/07/16 12/07/16 17:53 19:54 20:00 23:38 Temp 98.4 98.4 98.4 98.4 Pulse 86 88 Resp 19 18 18 B/P (MAP) 105/53 (70) 120/71 (87) Pulse Ox 97 96 96 O2 Delivery Room Air Room Air Room Air Room Air 12/08/16 12/08/16 12/08/16 12/08/16 03:36 07:16 07:34 10:36 Temp 98.0 98.0 98.1 98.0 98.0 98.1 Pulse 84 89 90 Resp 20 19 18 B/P (MAP) 122/65 (84) 120/67 (84) 102/54 (70) Pulse Ox 96 100 97 O2 Delivery Room Air Room Air Room Air Room Air Intake and Output 12/07/16 12/07/16 12/08/16 15:00 23:00 07:00 Intake Total 150 ml 520 ml Output Total 950 ml Balance 150 ml -430 ml LEROY VICENTE MD December 08, 2016 12:39
--- NOTE | 2016-12-09 01:42 | CONS ---
DATE OF CONSULTATION: 12/08/2016 LOCATION: The patient is in room 660. HISTORY OF PRESENT ILLNESS: The patient is a very pleasant 71-year-old white female who came into the hospital for a 2-day history of left flank and abdominal pain. The patient was found to have bilateral nonobstructing renal lithiasis, no ureterolithiasis and possible inflammation of the distal transverse colon. She has a history of Crohn's disease and has had problems with bowels in the past. She is currently feeling much better. Her creatinine had initially been 2.2 last month, it is down now to 1.4. Her white count currently is 6.7. Urine on 12/07/2016 had shown 1-2 red cells, 5-10 white cells, moderate squamous, moderate bacteria, but the preliminary urine culture had showed less than 10,000 CFU. The patient is afebrile. Abdomen is soft, minimal tenderness in the left side of the abdomen now and no right-sided tenderness. No discrete CVA tenderness. The patient does have long history of Crohn's and long history of stone disease. She has undergone previous left percutaneous nephrolithotomy by Dr. Rodriguez back about 5 years ago or more. The patient's current CAT scan showed no ureterolithiasis, but did show bilateral nonobstructing nephrolithiasis, in particular, large stones in the right renal pelvis, largest being 8 mm in size, but the total stone burden of the stones in the right renal pelvis appears to be over 2 cm. I discussed the patient's stones whether she is asymptomatic of the stones in the right renal pelvis, but I do believe that they have the potential for causing problems with either obstruction or causing the possibility of obstruction in the future. We discussed various options including ESWL versus ureteroscopy versus percutaneous nephrolithotomy. In light of the large stone burden, I would recommend possible consideration of right-sided PCNL and therefore, I have discussed with the patient referring her to see Dr. Macario or Dr. Milan at Urology for evaluation of possible right-sided percutaneous nephrolithotomy and I put that order into the chart to have the patient follow up with either Dr. Macario or Dr. Milan here in the next 2-4 weeks to discuss that option and then proceed accordingly. I certainly appreciate being allowed to participate in this patient's care. LEROY VICENTE MD DR: Taj JOB#: [id number] / [id number]
== END 2016-12-08 13:00 | disposition home or self-care (01) | DRG 694 ==
LOC: ER 10:32 → 6 SOUTH 11:10
PROVIDERS: ADMIT Family Medicine; ATTEND Family Medicine
DX: N20.2 Calculus of kidney with calculus of ureter (principal); K50.90 Crohn's disease, unspecified, without complications; E44.1 Mild protein-calorie malnutrition; I10 Essential (primary) hypertension; J45.909 Unspecified asthma, uncomplicated; M19.90 Unspecified osteoarthritis, unspecified site; K21.9 Gastro-esophageal reflux disease without esophagitis; D63.8 Anemia in other chronic diseases classified elsewhere; Z87.442 Personal history of urinary calculi; Z90.49 Acquired absence of other specified parts of digestive tract; Z82.49 Family history of ischemic heart disease and other diseases of the circulatory system; Z88.5 Allergy status to narcotic agent; Z88.0 Allergy status to penicillin; Z88.2 Allergy status to sulfonamides; Z88.8 Allergy status to other drugs, medicaments and biological substances; Z91.041 Radiographic dye allergy status; Z98.51 Tubal ligation status
CPT/HCPCS: 36415; 74176; 80048; 80053; 81001; 85027; 85610; 87086; 96374; 96375; 96376; J1885; J1956; J2270; J3010; J3490; 99285-25

== ENCOUNTER → 2017-02-03 | Outpatient (CLI) | payer MEDICARE ==
[~2017-02-03] MED LIST changes: +BARIUM SULFATE 60% 355 ML SUSP PO ONE; -CALC500T27 PO; +CALC500T30 PO; +LORA5SOL7 PO; +LUBI8CAP4 PO
--- NOTE | 2017-02-03 10:49 | RAD ---
Small bowel series, 02/03/2017: History: Crohn's disease, anemia, preop planning The preliminary abdominal image demonstrates a nonspecific gas pattern. There are numerous bilateral renal calcifications with a prominent cluster lying in the region of the right renal pelvis. Several surgical clips are present in the abdomen and pelvis. Overhead and spot films were obtained following oral ingestion of liquid barium. 3.5 minutes of fluoroscopy time was utilized. 8 fluoroscopic spot images were recorded. There has been a right hemicolectomy. There is prompt passage of the barium through the small bowel into the colon. There is irregular fold thickening in the distal small bowel. The ileocolic anastomotic site was not clearly demonstrated on the spot images due to overlap of other bowel loops. No fistula was identified. IMPRESSION: 1. Status post right hemicolectomy. 2. Moderate irregular mural thickening involving distal small bowel loops compatible with the history of Crohn's disease. 3. Extensive nephrocalcinosis.
== END | disposition home or self-care (01) ==
LOC: RAD 07:02
PROVIDERS: ATTEND Physician Assistant
DX: K50.80 Crohn's disease of both small and large intestine without complications (principal); Z90.49 Acquired absence of other specified parts of digestive tract; E83.59 Other disorders of calcium metabolism; N29 Other disorders of kidney and ureter in diseases classified elsewhere
CPT/HCPCS: 74250

== ENCOUNTER → 2017-02-05 | Outpatient (CLI) | payer MEDICARE ==
[~2017-02-05] MED LIST changes: -BARIUM SULFATE 60% 355 ML SUSP PO ONE
[2017-02-05 07:36] VITALS: BP 121/57
[2017-02-05 07:43] LABS: HEMOGLOBIN 8.9 g/dL (12.0-15.5)
[2017-02-05 09:09] VITALS: BP 124/58
[2017-02-05 10:10] VITALS: BP 121/61
[2017-02-05 11:08] VITALS: BP 130/62
[2017-02-05 12:08] VITALS: BP 145/65
[2017-02-05 12:53] VITALS: BP 139/67
== END | disposition home or self-care (01) ==
LOC: OPS 06:57
PROVIDERS: ATTEND Internal Medicine Gastroenterology
DX: D64.9 Anemia, unspecified (principal)
CPT/HCPCS: 36415; 36430; 85014; 85018; 86850; 86900; 86901; 86920; P9016

== ENCOUNTER 2017-02-09 05:48 | Inpatient (IN) | payer MEDICARE ==
[~2017-02-09] VITALS: Ht 162.6 cm; Wt 81.0 kg
[2017-02-09] VITALS (10 sets, daily range): BP systolic 113–141; BP diastolic 54–80
[2017-02-09 06:58] LABS: BASO % 1 % (0-3); EOS % 5 % (0-3); HEMATOCRIT 34.2 % (36.0-47.0); HEMOGLOBIN 10.8 g/dL (12.0-15.5); LYMPH # 3.4 x10^3/uL (1.0-4.8); LYMPH % 47 % (24-48); MEAN CORPUSCULAR HEMOGLOBIN 24 pg (25-35); MEAN CORPUSCULAR HGB CONC 32 g/dL (31-37); MEAN CORPUSCULAR VOLUME 76 fL (79-100); MONO % 8 % (0-9); NEUT % 40 % (31-73); PLATELET COUNT 279 x10^3/uL (140-400); WHITE BLOOD COUNT 7.2 x10^3/uL (4.0-11.0)
[2017-02-09] MEDS ORDERED: LIDOCAINE 1% 1 ML SYRINGE. ID PRN (07:00)
[2017-02-09] MEDS ORDERED: MORPHINE SULFATE 2 MG/ML DISP.SYRIN. IV PRN (07:00)
[2017-02-09] MEDS ORDERED: ONDANSETRON PF 4 MG/2 ML VIAL. IV PRN ×2 (07:00→14:30)
[2017-02-09] MEDS ORDERED: IV RINGERS,LACTATED 1000ML 1,000 ML IV SCH (07:00)
[2017-02-09] MEDS ORDERED: PROCHLORPERAZINE 10 MG/2 ML VIAL. IV PRN (07:00)
[2017-02-09] MEDS ORDERED: fentaNYL PF VIAL 100 MCG/2 ML VIAL IV PRN (07:00)
[2017-02-09 07:03] LABS: CALCIUM 7.9 mg/dL (8.5-10.1); CREATININE 1.3 mg/dL (0.6-1.0); GFR 40.6; POTASSIUM 3.2 mmol/L (3.5-5.1)
[2017-02-09 07:09] LABS: ALBUMIN 2.4 g/dL (3.4-5.0); ALBUMIN/GLOBULIN RATIO 0.7 (1.0-1.7); TOTAL BILIRUBIN 1.4 mg/dL (0.2-1.0)
[2017-02-09 07:12] LABS: INR 1.1 (0.8-1.1); PROTHROMBIN TIME PATIENT 13.7 SEC (11.7-14.0)
[2017-02-09] MEDS ORDERED: BUPIVACAINE-EPI 0.25%-1:200000 50 ML VIAL. ONE (07:32)
[2017-02-09] MEDS ORDERED: PROPOFOL 20 ML IV ONE (07:44)
[2017-02-09] MEDS ORDERED: MIDAZOLAM HCL/PF 2 MG/2 ML VIAL. ONE (07:44)
[2017-02-09] MEDS ORDERED: LIDOCAINE 2% PF Vial for OR 5 ML VIAL. ONE (07:44)
[2017-02-09] MEDS ORDERED: fentaNYL PF VIAL 250 MCG/5 ML VIAL ONE (07:44)
[2017-02-09] MEDS ORDERED: ONDANSETRON PF 4 MG/2 ML VIAL. ONE (07:44)
[2017-02-09] MEDS ORDERED: ROCURONIUM 50 MG/5 ML VIAL. ONE ×2 (07:44→10:15)
[2017-02-09] MEDS ORDERED: DEXAMETHASONE SOD PHOS 20 MG/5 ML VIAL. ONE (07:44)
--- NOTE | 2017-02-09 07:54 | PDOC ---
SURGICAL PROGRESS NOTE Subjective Pre-Op Note 71 yo F with crohn's, anemia, right abdominal pain, difficulty eating, bowel changes Noted to have stricture of previous ileocolic anastamosis by colonoscopy. SBFT with thickening of distal small bowel, CT with thickening of transverse colon Pt issues not resolved by conservative measures TO OR for lap vs open ileocolic resection R/B/A d/w pt and pt's family, certainly complicated surgery, given history Office note H&P reviewed and unchanged. Pt with known extensive kidney stones, which will be addressed s/p recovery of current surgery. Vital Signs Vital Signs Date Time Temp Pulse Resp B/P (MAP) Pulse Ox O2 Delivery O2 Flow Rate FiO2 02/09/17 06:29 98.7 100 20 97 98.7 02/09/17 06:23 140/73 Room Air Labs Laboratory Tests Test 02/09/17 06:30 White Blood Count 7.2 x10^3/uL (4.0-11.0) Red Blood Count 4.50 x10^6/uL (3.50-5.40) Hemoglobin 10.8 g/dL (12.0-15.5) Hematocrit 34.2 % (36.0-47.0) Mean Corpuscular Volume 76 fL (79-100) Mean Corpuscular Hemoglobin 24 pg (25-35) Mean Corpuscular Hemoglobin Concent 32 g/dL (31-37) Red Cell Distribution Width 28.0 % (11.5-14.5) Platelet Count 279 x10^3/uL (140-400) Neutrophils (%) (Auto) 40 % (31-73) Lymphocytes (%) (Auto) 47 % (24-48) Monocytes (%) (Auto) 8 % (0-9) Eosinophils (%) (Auto) 5 % (0-3) Basophils (%) (Auto) 1 % (0-3) Neutrophils # (Auto) 2.9 x10^3uL (1.8-7.7) Lymphocytes # (Auto) 3.4 x10^3/uL (1.0-4.8) Monocytes # (Auto) 0.6 x10^3/uL (0.0-1.1) Eosinophils # (Auto) 0.3 x10^3/uL (0.0-0.7) Basophils # (Auto) 0.0 x10^3/uL (0.0-0.2) Prothrombin Time 13.7 SEC (11.7-14.0) Prothromb Time International Ratio 1.1 (0.8-1.1) Activated Partial Thromboplast Time 24 SEC (24-38) Sodium Level 147 mmol/L (136-145) Potassium Level 3.2 mmol/L (3.5-5.1) Chloride Level 114 mmol/L (98-107) Carbon Dioxide Level 19 mmol/L (21-32) Anion Gap 14 (6-14) Blood Urea Nitrogen 13 mg/dL (7-20) Creatinine 1.3 mg/dL (0.6-1.0) Estimated GFR (Cockcroft-Gault) 40.6 BUN/Creatinine Ratio 10 (6-20) Glucose Level 91 mg/dL (70-99) Calcium Level 7.9 mg/dL (8.5-10.1) Total Bilirubin 1.4 mg/dL (0.2-1.0) Aspartate Amino Transf (AST/SGOT) 19 U/L (15-37) Alanine Aminotransferase (ALT/SGPT) 17 U/L (14-59) Alkaline Phosphatase 113 U/L (46-116) Total Protein 6.0 g/dL (6.4-8.2) Albumin 2.4 g/dL (3.4-5.0) Albumin/Globulin Ratio 0.7 (1.0-1.7) Laboratory Tests Test 02/09/17 06:30 White Blood Count 7.2 x10^3/uL (4.0-11.0) Red Blood Count 4.50 x10^6/uL (3.50-5.40) Hemoglobin 10.8 g/dL (12.0-15.5) Hematocrit 34.2 % (36.0-47.0) Mean Corpuscular Volume 76 fL (79-100) Mean Corpuscular Hemoglobin 24 pg (25-35) Mean Corpuscular Hemoglobin Concent 32 g/dL (31-37) Red Cell Distribution Width 28.0 % (11.5-14.5) Platelet Count 279 x10^3/uL (140-400) Neutrophils (%) (Auto) 40 % (31-73) Lymphocytes (%) (Auto) 47 % (24-48) Monocytes (%) (Auto) 8 % (0-9) Eosinophils (%) (Auto) 5 % (0-3) Basophils (%) (Auto) 1 % (0-3) Neutrophils # (Auto) 2.9 x10^3uL (1.8-7.7) Lymphocytes # (Auto) 3.4 x10^3/uL (1.0-4.8) Monocytes # (Auto) 0.6 x10^3/uL (0.0-1.1) Eosinophils # (Auto) 0.3 x10^3/uL (0.0-0.7) Basophils # (Auto) 0.0 x10^3/uL (0.0-0.2) Prothrombin Time 13.7 SEC (11.7-14.0) Prothromb Time International Ratio 1.1 (0.8-1.1) Activated Partial Thromboplast Time 24 SEC (24-38) Sodium Level 147 mmol/L (136-145) Potassium Level 3.2 mmol/L (3.5-5.1) Chloride Level 114 mmol/L (98-107) Carbon Dioxide Level 19 mmol/L (21-32) Anion Gap 14 (6-14) Blood Urea Nitrogen 13 mg/dL (7-20) Creatinine 1.3 mg/dL (0.6-1.0) Estimated GFR (Cockcroft-Gault) 40.6 BUN/Creatinine Ratio 10 (6-20) Glucose Level 91 mg/dL (70-99) Calcium Level 7.9 mg/dL (8.5-10.1) Total Bilirubin 1.4 mg/dL (0.2-1.0) Aspartate Amino Transf (AST/SGOT) 19 U/L (15-37) Alanine Aminotransferase (ALT/SGPT) 17 U/L (14-59) Alkaline Phosphatase 113 U/L (46-116) Total Protein 6.0 g/dL (6.4-8.2) Albumin 2.4 g/dL (3.4-5.0) Albumin/Globulin Ratio 0.7 (1.0-1.7) RANJANA PEDROZA MD Feb 09, 2017 07:54
[2017-02-09] MEDS ORDERED: BUPIVACAINE-EPI 0.5%-1:200000 50 ML VIAL. ONE (08:01)
[2017-02-09] MEDS ORDERED: MINERAL OIL/PETROLATUM,WHITE OPHTH OINT 3.5GM TUBE. ONE (08:23)
[2017-02-09] MEDS ORDERED: ePHEDrine PF IN SALINE 50 MG/5 ML DISP.SYRIN IV ONE (08:51)
[2017-02-09] MEDS ORDERED: SEVOFLURANE > 120 MINUTES. IH ONE (09:17)
[2017-02-09] MEDS ORDERED: PHENYLEPHRINE in 0.9% NACL PF 1 MG/10 ML DISP.SYRIN. IV ONE ×2 (09:17→10:42)
[2017-02-09 09:59] LABS: PLT ESTIMATE ADEQUATE (ADEQUATE)
[2017-02-09 10:00] LABS: ANISOCYTOSIS MARKED; HYPOCHROMIA SLIGHT
[2017-02-09 10:01] LABS: OVALOCYTES PRESENT; POIKILOCYTOSIS PRESENT
[2017-02-09] MEDS ORDERED: ALBUMIN HUMAN 5% 500 ML IV ONE (10:14)
[2017-02-09 10:16] LABS: HEMATOCRIT 28.7 % (36.0-47.0); HEMOGLOBIN 9.5 g/dL (12.0-15.5); WHITE BLOOD COUNT 18.1 x10^3/uL (4.0-11.0)
[2017-02-09 10:33] LABS: CALCIUM 7.2 mg/dL (8.5-10.1); CREATININE 1.4 mg/dL (0.6-1.0); GFR 37.3; POTASSIUM 3.4 mmol/L (3.5-5.1)
[2017-02-09] MEDS ORDERED: CALCIUM CHLORIDE 1,000 MG/10 ML DISP.SYRIN IV ONE (10:50)
[2017-02-09] MEDS ORDERED: GLYCOPYRROLATE 1 MG/5 ML VIAL. ONE (11:41)
[2017-02-09] MEDS ORDERED: NEOSTIGMINE METHYLSULFATE 5 MG/5 ML SYRINGE. ONE (11:42)
[2017-02-09 11:43] LABS: HEMATOCRIT 22.8 % (36.0-47.0); HEMOGLOBIN 7.2 g/dL (12.0-15.5)
[2017-02-09] MEDS: fentaNYL PF VIAL 100 MCG/2 ML VIAL IV PRN ×4 (12:39→12:54)
--- NOTE | 2017-02-09 13:09 | RAD ---
Indication postop. Protocol study. A single view of the abdomen was obtained and is compared to a study 6 days earlier. No unexpected finding is seen. A retained foreign body is not apparent. Renal calculi are again noted. IMPRESSION: No unexpected finding seen on postop KUB
[2017-02-09] MEDS: HYDROmorphone 2 MG/ML VIAL IV PRN ×3 (13:16→13:41)
[2017-02-09] MEDS ORDERED: IV NORMAL SALINE 1000ML BAG 1,000 ML IV SCH (14:22)
[2017-02-09] MEDS ORDERED: 0.9 % SODIUM CHLORIDE 10 ML DISP.SYRIN. IV PRN (14:30)
[2017-02-09] MEDS ORDERED: NALOXONE 0.4 MG/ML VIAL. IV PRN (14:30)
--- NOTE | 2017-02-09 15:19 | PDOC ---
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 Patient was prepped and draped in the usual fashion. Attempts at entering the abdomen in the Left lower quadrant were unsuccessful secondary to extensive adhesions. An open procedure was made using cautery in the midline. The abdomen was locked in. An extensive lysis of adhesions was performed which was difficult and the majority of the time. The small bowel was explored and enterotomies were avoided. The small bowel was short, less then 100 cm to the previous ileocolic site. There was extensive scarring in the ileocolic area in the right lower quadrant, which was difficult to dissect out. Ultimately, the bowel was transected at this area, and noted to have a complex ulcer/stricture. The scarred in small bowel proximal to this and colon distal, were resected using DAVIAN. No other bowel injuries were noted. Inherent to the procedure serosal tears were reapproximated with 3-0 vicryl. A side to side stapled anastomosis was formed using a DAVIAN stapler. The end sealed using TA stapler. The mesentery was closed using continuous 3 0 chromic. The anastamosis was patent, viable and under no tension, without evidence of leak. There was no other pathology noted. Urine in the davis was clear throughout. The right ureter was traced and appeared to be unremarkable. The abdominal cavity was copiously irrigated. There was no evidence of bleeding at time of closure. Fascia was reapproximated with 0 PDS looped, mary carmen was placed in subq and the incision was reapproxiamated with 3 0 vicryl and 4 0 monocryl. Patient tolerated procedure well, was sent to PACU in stable condition. All counts were correct, there were no immediate complications. Wound class was 3 contaminated WILY PEDROZA MD Feb 09, 2017 15:19
--- NOTE | 2017-02-09 15:35 | PDOC2 ---
GI CONSULT Reason For Consult: Crohn's, short bowel syndrome HPI: HPI: 71 y/o female known to GI/Dr. Kaminski. H/o Crohn's on Remicade, anemia, abdominal pain, irregular bowel habits, and anastomotic stricture w/ abnormal imaging. Underwent laparoscopic converted to open exploration w/ extensive PEGGY and ileocolonic resection today w/ Dr. Perez, now admitted. Reviewed op note, noted to have gnarled ileocolic anastomosis w/ tight stricture and 80cm of remaining small bowel c/w short bowel syndrome. Seen after arrival to floor from PACU, has some pain and is drowsy, concerned re: restarting Warfarin (has Lovenox ordered). Note orders for PICC and TPN. PMH: PMH: HTN, asthma, cervical cancer, PE, DVT, OA, GERD, Crohn's, nephrolithiasis, renal cysts appendectomy, cholecystectomy, cystoscopy, , tubal ligation , hysterectomy, bowel resections, right heel surgery, ERCP w/ stent placement and liver biopsy (@[facility]) FH: Family History: No pertinent hx Social History: Smoke: Quit ALCOHOL: social Drugs: None ROS: GEN: Denies fevers, chills, sweats HEENT: Denies blurred vision, sore throat CV: Denies chest pain RESP: Denies shortness of air, cough GI: Per HPI : Denies hematuria, dysuria ENDO: Denies weight changes NEURO: Denies confusion, dizziness MSK: Denies weakness, joint pain/swelling SKIN: Denies jaundice, pruritus Vitals: Vitals: Vital Signs Date Time Temp Pulse Resp B/P (MAP) Pulse Ox O2 Delivery O2 Flow Rate FiO2 02/09/17 14:51 96 16 130/70 96 Nasal Cannula 3 02/09/17 14:21 97.6 97.6 Labs: Labs: Laboratory Tests Test 02/09/17 06:30 02/09/17 10:05 02/09/17 11:30 White Blood Count 7.2 x10^3/uL (4.0-11.0) 18.1 x10^3/uL (4.0-11.0) Red Blood Count 4.50 x10^6/uL (3.50-5.40) Hemoglobin 10.8 g/dL (12.0-15.5) 9.5 g/dL (12.0-15.5) 7.2 g/dL (12.0-15.5) Hematocrit 34.2 % (36.0-47.0) 28.7 % (36.0-47.0) 22.8 % (36.0-47.0) Mean Corpuscular Volume 76 fL (79-100) Mean Corpuscular Hemoglobin 24 pg (25-35) Mean Corpuscular Hemoglobin Concent 32 g/dL (31-37) 32 g/dL (31-37) Red Cell Distribution Width 28.0 % (11.5-14.5) Platelet Count 279 x10^3/uL (140-400) 309 x10^3/uL (140-400) Neutrophils (%) (Auto) 40 % (31-73) Lymphocytes (%) (Auto) 47 % (24-48) Monocytes (%) (Auto) 8 % (0-9) Eosinophils (%) (Auto) 5 % (0-3) Basophils (%) (Auto) 1 % (0-3) Neutrophils # (Auto) 2.9 x10^3uL (1.8-7.7) Lymphocytes # (Auto) 3.4 x10^3/uL (1.0-4.8) Monocytes # (Auto) 0.6 x10^3/uL (0.0-1.1) Eosinophils # (Auto) 0.3 x10^3/uL (0.0-0.7) Basophils # (Auto) 0.0 x10^3/uL (0.0-0.2) Platelet Estimate Adequate (ADEQUATE) Hypochromasia Slight Poikilocytosis Present Anisocytosis Marked Ovalocytes Present Prothrombin Time 13.7 SEC (11.7-14.0) Prothromb Time International Ratio 1.1 (0.8-1.1) Activated Partial Thromboplast Time 24 SEC (24-38) Sodium Level 147 mmol/L (136-145) 143 mmol/L (136-145) Potassium Level 3.2 mmol/L (3.5-5.1) 3.4 mmol/L (3.5-5.1) Chloride Level 114 mmol/L (98-107) 112 mmol/L (98-107) Carbon Dioxide Level 19 mmol/L (21-32) 19 mmol/L (21-32) Anion Gap 14 (6-14) 12 (6-14) Blood Urea Nitrogen 13 mg/dL (7-20) 12 mg/dL (7-20) Creatinine 1.3 mg/dL (0.6-1.0) 1.4 mg/dL (0.6-1.0) Estimated GFR (Cockcroft-Gault) 40.6 37.3 BUN/Creatinine Ratio 10 (6-20) Glucose Level 91 mg/dL (70-99) 138 mg/dL (70-99) Calcium Level 7.9 mg/dL (8.5-10.1) 7.2 mg/dL (8.5-10.1) Total Bilirubin 1.4 mg/dL (0.2-1.0) Aspartate Amino Transf (AST/SGOT) 19 U/L (15-37) Alanine Aminotransferase (ALT/SGPT) 17 U/L (14-59) Alkaline Phosphatase 113 U/L (46-116) Total Protein 6.0 g/dL (6.4-8.2) Albumin 2.4 g/dL (3.4-5.0) Albumin/Globulin Ratio 0.7 (1.0-1.7) Allergies: Coded Allergies: codeine (Verified Allergy, Severe, Shortness of Air, 02/09/17) tolerates morphine and hydrocodone oxycodone (Verified Allergy, Severe, soa, 02/09/17) tolerates morphine and hydrocodone Iodinated Contrast- Oral and IV Dye (Verified Allergy, Intermediate, Rash , 02/09/17) Penicillins (Verified Allergy, Intermediate, rash, 02/09/17) adhesive tape (Verified Allergy, Mild, 02/09/17) TEARS SKIN Medications: Current Medications Medications (Trade) Dose Ordered Sig/Jazmin Route PRN Reason Start Time Stop Time Status Last Admin Dose Admin Fentanyl Citrate (Fentanyl 2ml Vial) 50 mcg PRN Q5MIN PRN IV MODERATE PAIN 02/09/17 07:00 02/10/17 06:59 02/09/17 12:54 Ringer's Solution 1,000 ml @ 30 mls/hr Q24H IV 02/09/17 07:00 02/09/17 18:59 02/09/17 06:43 Hydromorphone HCl (Dilaudid) 0.5 mg PRN Q10MIN PRN IV SEV PAIN, Second choice 02/09/17 07:00 02/10/17 06:59 02/09/17 13:41 Cefoxitin Sodium 100 ml @ 100 mls/hr 1X PREOP PRN IV Prior to Surgery 02/09/17 08:00 02/09/17 15:00 DC 02/09/17 08:10 Bupivacaine HCl/ Epinephrine Bitart (Marcaine-Epi 0.5%-[id number]) 50 ml STK-MED ONCE .ROUTE 02/09/17 08:01 02/09/17 08:02 DC 02/09/17 08:42 Cefoxitin Sodium 2 gm/Sodium Chloride 100 ml @ 200 mls/hr 1X ONCE IV 02/09/17 10:30 02/09/17 10:59 DC 02/09/17 10:07 Cefoxitin Sodium 50 ml @ 100 mls/hr 1X ONCE IV 02/09/17 12:30 02/09/17 12:59 DC 02/09/17 12:07 Hydromorphone HCl 30 ml @ 0 mls/hr CONT PRN PRN IV PROTOCOL 02/09/17 14:30 02/09/17 14:37 Imaging: Imaging: [facility] 02/09/17 IMPRESSION: No unexpected finding seen on postop KUB. PE: GEN: NAD HEENT: Atraumatic, PERRL LUNGS: clear anteriorly HEART: tachycardic ABD: under ice pack EXTREMITY: No edema SKIN: No rashes, no jaundice NEURO/PSYCH: drowsy A/P: A/P: Crohn's disease w/ previous bowel resections, anastomotic stricture on Remicade S/p open ileocolonic resection w/ PEGGY 02/09/17 Short bowel syndrome -- Will follow post-operatively. MAI CURRY Feb 09, 2017 15:35
[2017-02-09] MEDS: FAMOTIDINE 20 MG TABLET. PO SCH (21:28)
[2017-02-09] MEDS: ENOXAPARIN 40 MG/0.4 ML SYRINGE. SQ SCH (21:28)
[2017-02-09] MEDS: IV RINGERS,LACTATED 1000ML 1,000 ML IV SCH (21:29)
[2017-02-10] VITALS (7 sets, daily range): BP systolic 109–148; BP diastolic 57–73
[2017-02-10] MEDS: IV RINGERS,LACTATED 1000ML 1,000 ML IV SCH ×3 (00:22→14:09)
--- NOTE | 2017-02-10 00:54 | ACF ---
Admission Forms Criteria ABDOMINAL PAIN Clinical Indications for Admission to Inpatient Care (Place 'X' for any and all applicable criteria): Admission is indicated for ANY ONE of the following(1)(2)(3)(4)(5): [ ]I. Inpatient admission required rather than observation care (Also use Abdominal Pain: Observation Care, as appropriate) because of ANY ONE of the following: [ ]a) Severe pain requiring acute inpatient management [ ]b) Identification of etiology/finding that requires inpatient care (eg, aortic dissection, free air) [ ]c) Absent bowel sounds with complete ileus(6) [ ]d) Suspected toxic megacolon [ ]e) Severe electrolyte abnormalities requiring inpatient care [ ]f) High fever or infection requiring inpatient admission as indicated by ANY ONE of following(7)(8): [ ] i) Appropriate outpatient or observational care antimicrobial treatment unavailable, not effective, or not feasible [ ] ii) Documented bacteremia [ ] iii) Temperature > 104.9 degrees F (oral) [ ] iv) T >103.1 F (oral) or < 96.8 F(rectal) that does not respond to all emergency treatment measures [ ]g) Signs of intestinal obstruction [B] [ ]h) Hemodynamic instability [ ]i) IV fluid to replace significant ongoing losses (greater than 3 L/m2 per day) (12)(13) [ ]j) Percutaneous or open drainage (eg, abscess, biliary tract ) procedures [ ]k) Parenteral nutrition regimen that must be implemented on inpatient basis [ ]l) Other condition,treatment or monitoring requiring inpatient admission. [ ]II. Peritoneal signs present [X]III. Surgery needed that cannot be performed on an ambulatory basis. [ ]IV. Evaluation requires patient to not eat or drink for extended period ( eg, more than 24 hours). [ ]V. Contraindications and/or Inappropriate clinical situations for Observational Care in patients with abdominal pain, when ANY ONE of the following is required: [ ]a) Thorough evaluation is required to prevent catastrophic events due to delays in diagnosing (e.g.Mesenteric ischemia) 1,3 [ ]b) Patient with severe pathology or with chronic symptoms unlikely to improve in the ED stay (3) [ ]. General contraindications and/or Inappropriate clinical situations for Observational Care in patients with abdominal pain, when ANY ONE of the following is required: [ ]a) Prediction of prolongation of LOS based on ANY ONE of the following may be considered as a contraindication for observational care 2, 3, 4, 5, 6, 7, 8, 9, 10, 11 [ ]i) Age > 65 yrs. [ ]ii) Patient arriving by ambulance [ ]iii) Patient with high acuity [ ]iv) Patient requiring vital sign monitoring [ ]v) Patient on IV medication [ ]b) Systolic blood pressures 180mmHg 3,12 [ ]c) Patient with altered mental status including delirium and other alteration of consciousness, (3) [ ]d) Patient whose discharge disposition will be to a nursing home home or rehabilitation home should not be managed in Emergency Department Observation Unit. CMS rule requires 3 days hospital stay before such placement.3,13 [ ]e) Patient with failure to thrive due to broad array of etiologies 3,16,17 [ ]f) Inability to ambulate 3,14 Extended stay beyond goal length of stay may be needed for(2)(3): [ ]a) Persistent abdominal pain with suspected intra-abdominal process [ ]b) Diagnosed condition requiring continued stay (e.g., pancreatitis, complicated diverticulitis) [ ]c) Surgery (e.g., colectomy) The original [facility] content created by [employer] has been revised. The portions of the content which have been revised are identified through the use of italic text or in bold, and [facility] has neither reviewed nor approved the modified material.All other unmodified content is copyright [facility]. Please see references footnoted in the original [facility] [employer] edition 2016 Admission Criteria Met?: Yes TRISH PATTEN Feb 10, 2017 00:54 RANJANA PEDROZA MD Feb 10, 2017 08:23
[2017-02-10 06:26] LABS: BASO % 0 % (0-3); EOS % 0 % (0-3); HEMATOCRIT 27.7 % (36.0-47.0); HEMOGLOBIN 9.3 g/dL (12.0-15.5); LYMPH % 19 % (24-48); MEAN CORPUSCULAR HEMOGLOBIN 26 pg (25-35); MEAN CORPUSCULAR HGB CONC 34 g/dL (31-37); MEAN CORPUSCULAR VOLUME 78 fL (79-100); MONO % 7 % (0-9); NEUT % 74 % (31-73); PLATELET COUNT 222 x10^3/uL (140-400); RED BLOOD COUNT 3.55 x10^6/uL (3.50-5.40); RED CELL DISTRIBUTION WIDTH 25.6 % (11.5-14.5); WHITE BLOOD COUNT 10.7 x10^3/uL (4.0-11.0)
[2017-02-10 06:38] LABS: CALCIUM 6.9 mg/dL (8.5-10.1); CREATININE 1.2 mg/dL (0.6-1.0); GFR 44.5; POTASSIUM 3.7 mmol/L (3.5-5.1)
--- NOTE | 2017-02-10 10:39 | PDOC ---
SURGICAL PROGRESS NOTE Subjective Pt with c/o incisional pain, no N/V Vital Signs Vital Signs Date Time Temp Pulse Resp B/P (MAP) Pulse Ox O2 Delivery O2 Flow Rate FiO2 02/10/17 07:00 98.7 94 16 111/58 (75) 95 Room Air 98.7 02/10/17 03:31 3.0 I&O Intake and Output 02/10/17 07:00 Intake Total 5083 ml Output Total 4925 ml Balance 158 ml Intake IV Total 5083 ml Output Urine Total 3025 ml Gastric Drainage Total 200 ml Estimated Blood Loss 1700 ml PATIENT HAS A BUENROSTRO: Yes (d/c in AM) General: Alert, Oriented X3, Cooperative, No acute distress Abdomen: Soft, No tenderness Labs Laboratory Tests Test 02/09/17 06:30 02/09/17 10:05 02/09/17 11:30 02/10/17 05:50 White Blood Count 7.2 x10^3/uL (4.0-11.0) 18.1 x10^3/uL (4.0-11.0) 10.7 x10^3/uL (4.0-11.0) Red Blood Count 4.50 x10^6/uL (3.50-5.40) 3.55 x10^6/uL (3.50-5.40) Hemoglobin 10.8 g/dL (12.0-15.5) 9.5 g/dL (12.0-15.5) 7.2 g/dL (12.0-15.5) 9.3 g/dL (12.0-15.5) Hematocrit 34.2 % (36.0-47.0) 28.7 % (36.0-47.0) 22.8 % (36.0-47.0) 27.7 % (36.0-47.0) Mean Corpuscular Volume 76 fL (79-100) 78 fL (79-100) Mean Corpuscular Hemoglobin 24 pg (25-35) 26 pg (25-35) Mean Corpuscular Hemoglobin Concent 32 g/dL (31-37) 32 g/dL (31-37) 34 g/dL (31-37) Red Cell Distribution Width 28.0 % (11.5-14.5) 25.6 % (11.5-14.5) Platelet Count 279 x10^3/uL (140-400) 309 x10^3/uL (140-400) 222 x10^3/uL (140-400) Neutrophils (%) (Auto) 40 % (31-73) 74 % (31-73) Lymphocytes (%) (Auto) 47 % (24-48) 19 % (24-48) Monocytes (%) (Auto) 8 % (0-9) 7 % (0-9) Eosinophils (%) (Auto) 5 % (0-3) 0 % (0-3) Basophils (%) (Auto) 1 % (0-3) 0 % (0-3) Neutrophils # (Auto) 2.9 x10^3uL (1.8-7.7) 7.9 x10^3uL (1.8-7.7) Lymphocytes # (Auto) 3.4 x10^3/uL (1.0-4.8) 2.0 x10^3/uL (1.0-4.8) Monocytes # (Auto) 0.6 x10^3/uL (0.0-1.1) 0.7 x10^3/uL (0.0-1.1) Eosinophils # (Auto) 0.3 x10^3/uL (0.0-0.7) 0.0 x10^3/uL (0.0-0.7) Basophils # (Auto) 0.0 x10^3/uL (0.0-0.2) 0.0 x10^3/uL (0.0-0.2) Platelet Estimate Adequate (ADEQUATE) Hypochromasia Slight Poikilocytosis Present Anisocytosis Marked Ovalocytes Present Prothrombin Time 13.7 SEC (11.7-14.0) Prothromb Time International Ratio 1.1 (0.8-1.1) Activated Partial Thromboplast Time 24 SEC (24-38) Sodium Level 147 mmol/L (136-145) 143 mmol/L (136-145) 147 mmol/L (136-145) Potassium Level 3.2 mmol/L (3.5-5.1) 3.4 mmol/L (3.5-5.1) 3.7 mmol/L (3.5-5.1) Chloride Level 114 mmol/L (98-107) 112 mmol/L (98-107) 115 mmol/L (98-107) Carbon Dioxide Level 19 mmol/L (21-32) 19 mmol/L (21-32) 22 mmol/L (21-32) Anion Gap 14 (6-14) 12 (6-14) 10 (6-14) Blood Urea Nitrogen 13 mg/dL (7-20) 12 mg/dL (7-20) 12 mg/dL (7-20) Creatinine 1.3 mg/dL (0.6-1.0) 1.4 mg/dL (0.6-1.0) 1.2 mg/dL (0.6-1.0) Estimated GFR (Cockcroft-Gault) 40.6 37.3 44.5 BUN/Creatinine Ratio 10 (6-20) Glucose Level 91 mg/dL (70-99) 138 mg/dL (70-99) 107 mg/dL (70-99) Calcium Level 7.9 mg/dL (8.5-10.1) 7.2 mg/dL (8.5-10.1) 6.9 mg/dL (8.5-10.1) Total Bilirubin 1.4 mg/dL (0.2-1.0) Aspartate Amino Transf (AST/SGOT) 19 U/L (15-37) Alanine Aminotransferase (ALT/SGPT) 17 U/L (14-59) Alkaline Phosphatase 113 U/L (46-116) Total Protein 6.0 g/dL (6.4-8.2) Albumin 2.4 g/dL (3.4-5.0) Albumin/Globulin Ratio 0.7 (1.0-1.7) Laboratory Tests Test 02/09/17 11:30 02/10/17 05:50 Hemoglobin 7.2 g/dL (12.0-15.5) 9.3 g/dL (12.0-15.5) Hematocrit 22.8 % (36.0-47.0) 27.7 % (36.0-47.0) Mean Corpuscular Hemoglobin Concent 32 g/dL (31-37) 34 g/dL (31-37) White Blood Count 10.7 x10^3/uL (4.0-11.0) Red Blood Count 3.55 x10^6/uL (3.50-5.40) Mean Corpuscular Volume 78 fL (79-100) Mean Corpuscular Hemoglobin 26 pg (25-35) Red Cell Distribution Width 25.6 % (11.5-14.5) Platelet Count 222 x10^3/uL (140-400) Neutrophils (%) (Auto) 74 % (31-73) Lymphocytes (%) (Auto) 19 % (24-48) Monocytes (%) (Auto) 7 % (0-9) Eosinophils (%) (Auto) 0 % (0-3) Basophils (%) (Auto) 0 % (0-3) Neutrophils # (Auto) 7.9 x10^3uL (1.8-7.7) Lymphocytes # (Auto) 2.0 x10^3/uL (1.0-4.8) Monocytes # (Auto) 0.7 x10^3/uL (0.0-1.1) Eosinophils # (Auto) 0.0 x10^3/uL (0.0-0.7) Basophils # (Auto) 0.0 x10^3/uL (0.0-0.2) Sodium Level 147 mmol/L (136-145) Potassium Level 3.7 mmol/L (3.5-5.1) Chloride Level 115 mmol/L (98-107) Carbon Dioxide Level 22 mmol/L (21-32) Anion Gap 10 (6-14) Blood Urea Nitrogen 12 mg/dL (7-20) Creatinine 1.2 mg/dL (0.6-1.0) Estimated GFR (Cockcroft-Gault) 44.5 Glucose Level 107 mg/dL (70-99) Calcium Level 6.9 mg/dL (8.5-10.1) Assessment/Plan s/p xlap pain control await bowel fxn will need predatory animal exterminator TPN Problems: RANJANA PEDROZA MD Feb 10, 2017 10:39
[2017-02-10] MEDS ORDERED: PHENOL ORAL SPRAY 177ML BOTTLE. PO PRN (10:45)
[2017-02-10] MEDS: FLUTICASONE 50MCG/NASAL SPRAY 16GM BOTTLE. NS SCH (11:00)
--- NOTE | 2017-02-10 12:41 | PDOC ---
Subjective: Subjective: Hurting. Objective: Vital Signs: Vital Signs Date Time Temp Pulse Resp B/P (MAP) Pulse Ox O2 Delivery O2 Flow Rate FiO2 02/10/17 11:00 99.1 96 16 116/57 (76) 95 Nasal Cannula 3.0 99.1 Labs: Laboratory Tests Test 02/10/17 05:50 White Blood Count 10.7 x10^3/uL Red Blood Count 3.55 x10^6/uL Hemoglobin 9.3 g/dL Hematocrit 27.7 % Mean Corpuscular Volume 78 fL Mean Corpuscular Hemoglobin 26 pg Mean Corpuscular Hemoglobin Concent 34 g/dL Red Cell Distribution Width 25.6 % Platelet Count 222 x10^3/uL Neutrophils (%) (Auto) 74 % Lymphocytes (%) (Auto) 19 % Monocytes (%) (Auto) 7 % Eosinophils (%) (Auto) 0 % Basophils (%) (Auto) 0 % Neutrophils # (Auto) 7.9 x10^3uL Lymphocytes # (Auto) 2.0 x10^3/uL Monocytes # (Auto) 0.7 x10^3/uL Eosinophils # (Auto) 0.0 x10^3/uL Basophils # (Auto) 0.0 x10^3/uL Sodium Level 147 mmol/L Potassium Level 3.7 mmol/L Chloride Level 115 mmol/L Carbon Dioxide Level 22 mmol/L Anion Gap 10 Blood Urea Nitrogen 12 mg/dL Creatinine 1.2 mg/dL Estimated GFR (Cockcroft-Gault) 44.5 Glucose Level 107 mg/dL Calcium Level 6.9 mg/dL PE: GEN: NAD EXTREM: RUE slightly puffy NEURO/PSYCH: A & O 3 OTHER: NG A/P: Crohn's disease s/p resections w/ short bowel syndrome -- Plans for PICC today, TPN. Long-term need for TPN expected, possibly a candidate for Gattex - discussed this with pt/family, also Katie Heller PA-C at our office. Outpt follow-up planned. MAI CURRY Feb 10, 2017 12:41
[2017-02-10] MEDS: TPN PER PHARMACY MC PRN (14:08)
[2017-02-10] MEDS ORDERED: LIDOCAINE 1% / SOD BICARB 8.4% 20 ML VIAL. IJ ONE (15:00)
[2017-02-10] MEDS ORDERED: HEPARIN PF 500 UNIT/5 ML DISP.SYRIN. IV ONE ×2 (15:01→15:45)
[2017-02-10] MEDS ORDERED: LIDOCAINE 1%/EPI 1:100,000 20 ML VIAL. ONE (15:01)
[2017-02-10] MEDS ORDERED: MIDAZOLAM HCL/PF 2 MG/2 ML VIAL. ONE (15:29)
[2017-02-10] MEDS ORDERED: LIDOCAINE 1%/EPI 1:100,000 20 ML VIAL. INJ ONE (15:45)
[2017-02-10] MEDS ORDERED: MIDAZOLAM HCL/PF 2 MG/2 ML VIAL. IV ONE (15:45)
--- NOTE | 2017-02-10 16:46 | RAD ---
Procedure: Ultrasound and fluoroscopically guided placement of tunnel central venous catheter. 02/10/2017 4:43 PM Clinical Indication: half-way TPN, PICC team attempts unsuccessful Sedation: Conscious sedation was administered for 30 minutes. The patient was monitored by a qualified independent observer throughout the time of sedation. Please refer to the medical record for exact doses of medications utilized to achieve moderate sedation. Fluoroscopy time: 0.4 minutes Dose area product: 1 Gycm2 Consent: The procedure was explained in its entirety to the patient or the patients designated hvac sales representative by a member of the treatment team, including a discussion of the risks, benefits and commonly accepted alternatives to the procedure, as well as the expected consequences of no therapy whatsoever. Discussion of the risks included, but was not limited to, those that are most frequent and those that are rare but possibly severe or life-threatening, as well as the possibility of unforeseen complications. Sterility: All elements of maximal sterile barrier technique including the use of a cap, mask, sterile gown, sterile gloves, large sterile sheet, appropriate hand hygiene, and 2% chlorhexidine for cutaneous antisepsis (or acceptable alternative antiseptic per current guidelines) were followed for this procedure. Technique and Findings: Following informed consent, the patient was prepped and draped in the usual sterile fashion. Ultrasound interrogation of the right neck revealed patency and compressibility of the right internal jugular vein. A 21-gauge micropuncture was then used to gain access to this vein under ultrasound guidance. A hard copy ultrasound image was recorded. The needle was exchanged over a wire for a sheath. A small incision was made several centimeters inferior to the right clavicle. A power line was trimmed to length, advanced from the small skin incision to the venotomy site, and then advanced through a peel-away sheath to the level of the cavoatrial junction. Catheter was found to flush and aspirate normally. Catheter was secured in place with 2-0 Prolene suture and a sterile dressing was applied. Catheter was packed with heparin per protocol. The neck dermatotomy was closed with Dermabond. No immediate complications were identified. Impression: Successful ultrasound and fluoroscopically guided placement of a right internal jugular tunneled central venous catheter
[2017-02-10] MEDS: ENOXAPARIN 40 MG/0.4 ML SYRINGE. SQ SCH (20:20)
[2017-02-10] MEDS: FAMOTIDINE 20 MG TABLET. PO SCH (20:20)
[2017-02-10] MEDS ORDERED: TOTAL PARENTERAL NUTRITION 1,402.4987 ML, AMINO ACIDS 10 % 60 GM, DEXTROSE 70 % IN WATE... IV SCH ×10 (22:00)
[2017-02-11] MEDS: IV RINGERS,LACTATED 1000ML 1,000 ML IV SCH ×2 (01:57→10:30)
[2017-02-11 03:00] VITALS: BP 123/68
[2017-02-11 06:24] LABS: CALCIUM 6.9 mg/dL (8.5-10.1); MAGNESIUM 1.2 mg/dL (1.8-2.4); POTASSIUM 3.6 mmol/L (3.5-5.1)
[2017-02-11 07:00] VITALS: BP 135/65
[2017-02-11] MEDS ORDERED: ACETAMINOPHEN 650 MG SUPP.RECT. PR PRN (07:15)
[2017-02-11] MEDS: FLUTICASONE 50MCG/NASAL SPRAY 16GM BOTTLE. NS SCH (09:03)
[2017-02-11 11:00] VITALS: BP 130/66
--- NOTE | 2017-02-11 11:17 | PDOC ---
SURGICAL PROGRESS NOTE Subjective Pt with c/o soreness, but otherwise doing well, NGT bothersome, feels rumbling Vital Signs Vital Signs Date Time Temp Pulse Resp B/P (MAP) Pulse Ox O2 Delivery O2 Flow Rate FiO2 02/11/17 07:00 98.8 97 16 135/65 (88) 95 Nasal Cannula 3.0 98.8 I&O Intake and Output 02/11/17 07:00 Intake Total 1272.75 ml Output Total 1250 ml Balance 22.75 ml Intake Oral 0 ml IV Total 1272.75 ml Output Urine Total 950 ml Gastric Drainage Total 300 ml General: Alert, Oriented X3, Cooperative, No acute distress HEENT: Other (NGT with clear aspirate) Abdomen: Soft, No tenderness Labs Laboratory Tests Test 02/09/17 11:30 02/10/17 05:50 02/11/17 05:40 Hemoglobin 7.2 g/dL (12.0-15.5) 9.3 g/dL (12.0-15.5) Hematocrit 22.8 % (36.0-47.0) 27.7 % (36.0-47.0) Mean Corpuscular Hemoglobin Concent 32 g/dL (31-37) 34 g/dL (31-37) White Blood Count 10.7 x10^3/uL (4.0-11.0) Red Blood Count 3.55 x10^6/uL (3.50-5.40) Mean Corpuscular Volume 78 fL (79-100) Mean Corpuscular Hemoglobin 26 pg (25-35) Red Cell Distribution Width 25.6 % (11.5-14.5) Platelet Count 222 x10^3/uL (140-400) Neutrophils (%) (Auto) 74 % (31-73) Lymphocytes (%) (Auto) 19 % (24-48) Monocytes (%) (Auto) 7 % (0-9) Eosinophils (%) (Auto) 0 % (0-3) Basophils (%) (Auto) 0 % (0-3) Neutrophils # (Auto) 7.9 x10^3uL (1.8-7.7) Lymphocytes # (Auto) 2.0 x10^3/uL (1.0-4.8) Monocytes # (Auto) 0.7 x10^3/uL (0.0-1.1) Eosinophils # (Auto) 0.0 x10^3/uL (0.0-0.7) Basophils # (Auto) 0.0 x10^3/uL (0.0-0.2) Sodium Level 147 mmol/L (136-145) 145 mmol/L (136-145) Potassium Level 3.7 mmol/L (3.5-5.1) 3.6 mmol/L (3.5-5.1) Chloride Level 115 mmol/L (98-107) 112 mmol/L (98-107) Carbon Dioxide Level 22 mmol/L (21-32) 25 mmol/L (21-32) Anion Gap 10 (6-14) 8 (6-14) Blood Urea Nitrogen 12 mg/dL (7-20) 12 mg/dL (7-20) Creatinine 1.2 mg/dL (0.6-1.0) 1.0 mg/dL (0.6-1.0) Estimated GFR (Cockcroft-Gault) 44.5 55.0 Glucose Level 107 mg/dL (70-99) 112 mg/dL (70-99) Calcium Level 6.9 mg/dL (8.5-10.1) 6.9 mg/dL (8.5-10.1) Phosphorus Level 2.0 mg/dL (2.6-4.7) Magnesium Level 1.2 mg/dL (1.8-2.4) Laboratory Tests Test 02/11/17 05:40 Sodium Level 145 mmol/L (136-145) Potassium Level 3.6 mmol/L (3.5-5.1) Chloride Level 112 mmol/L (98-107) Carbon Dioxide Level 25 mmol/L (21-32) Anion Gap 8 (6-14) Blood Urea Nitrogen 12 mg/dL (7-20) Creatinine 1.0 mg/dL (0.6-1.0) Estimated GFR (Cockcroft-Gault) 55.0 Glucose Level 112 mg/dL (70-99) Calcium Level 6.9 mg/dL (8.5-10.1) Phosphorus Level 2.0 mg/dL (2.6-4.7) Magnesium Level 1.2 mg/dL (1.8-2.4) Assessment/Plan s/p ileocolic resection clamp NGT start TPN-pt will need intermediate TPN for at least 3 months d/c davis d/w pt and pt's family Problems: RANJANA PEDROZA MD Feb 11, 2017 11:17
[2017-02-11] MEDS ORDERED: POTASSIUM PHOSPHATE DIBASIC 13.6 MMOL in IV NORMAL SALINE 100ML 100 ML IV ONE (11:30)
[2017-02-11] MEDS ORDERED: MAGNESIUM SULFATE 2GM 50 ML IV ONE (11:30)
--- NOTE | 2017-02-11 11:44 | PDOC ---
Subjective: Subjective: Doing better, says not much out of NG, plans to clamp and possibly remove. Objective: Objective: Reviewed other notes. Vital Signs: Vital Signs Date Time Temp Pulse Resp B/P (MAP) Pulse Ox O2 Delivery O2 Flow Rate FiO2 02/11/17 07:00 98.8 97 16 135/65 (88) 95 Nasal Cannula 3.0 98.8 Labs: Laboratory Tests Test 02/11/17 05:40 Sodium Level 145 mmol/L Potassium Level 3.6 mmol/L Chloride Level 112 mmol/L Carbon Dioxide Level 25 mmol/L Anion Gap 8 Blood Urea Nitrogen 12 mg/dL Creatinine 1.0 mg/dL Estimated GFR (Cockcroft-Gault) 55.0 Glucose Level 112 mg/dL Calcium Level 6.9 mg/dL Phosphorus Level 2.0 mg/dL Magnesium Level 1.2 mg/dL PE: GEN: NAD LUNGS: clear HEART: RRR ABD: abd w/ pillow and ice, NG NEURO/PSYCH: A & O 3, cheerful A/P: Crohn's disease s/p resections w/ short bowel syndrome -PICC and TPN yesterday -previously discussed possible need for Gattex -- Plans to clamp NG, await response. Will ask social work to see w/ buttermilk drier operator need for TPN. MAI CURRY Feb 11, 2017 11:44
[2017-02-11] MEDS: TPN PER PHARMACY MC PRN (12:39)
[2017-02-11 15:00] VITALS: BP 140/59
[2017-02-11 19:30] VITALS: BP 116/69
[2017-02-11] MEDS ORDERED: FAMOTIDINE 20 MG/2 ML VIAL IVP SCH (21:00)
[2017-02-11] MEDS: ENOXAPARIN 40 MG/0.4 ML SYRINGE. SQ SCH (21:32)
[2017-02-11] MEDS ORDERED: [UNRECOGNIZED DRUG - OTHER] IV SCH ×10 (22:00)
[2017-02-11] MEDS ORDERED: TOTAL PARENTERAL NUTRITION IV SCH ×10 (22:00)
[2017-02-11] MEDS ORDERED: AMINO ACIDS IV SCH ×10 (22:00)
[2017-02-11] MEDS ORDERED: DEXTROSE 70% IV SCH ×10 (22:00)
[2017-02-11 23:17] VITALS: BP 127/62
[2017-02-12 03:30] VITALS: BP 120/74
[2017-02-12 06:20] LABS: CALCIUM 7.4 mg/dL (8.5-10.1); CREATININE 0.9 mg/dL (0.6-1.0); GFR 62.1; MAGNESIUM 1.9 mg/dL (1.8-2.4); PHOSPHORUS 2.1 mg/dL (2.6-4.7); POTASSIUM 3.4 mmol/L (3.5-5.1)
[2017-02-12] MEDS: IV RINGERS,LACTATED 1000ML 1,000 ML IV SCH (06:30)
[2017-02-12 07:00] VITALS: BP 127/59
--- NOTE | 2017-02-12 08:14 | PDOC ---
SURGICAL PROGRESS NOTE Subjective Pt feels better, NGT out, neftali clears, no flatus Vital Signs Vital Signs Date Time Temp Pulse Resp B/P (MAP) Pulse Ox O2 Delivery O2 Flow Rate FiO2 02/12/17 03:30 98.8 102 18 120/74 (89) 95 Nasal Cannula 3.0 98.8 I&O Intake and Output 02/12/17 07:00 Intake Total 510 ml Output Total 1800 ml Balance -1290 ml Intake Oral 510 ml Output Urine Total 1800 ml General: Alert, Oriented X3, Cooperative, No acute distress Abdomen: Soft, No tenderness, Other (incision c/d/i) Labs Laboratory Tests Test 02/11/17 05:40 02/12/17 05:30 Sodium Level 145 mmol/L (136-145) 144 mmol/L (136-145) Potassium Level 3.6 mmol/L (3.5-5.1) 3.4 mmol/L (3.5-5.1) Chloride Level 112 mmol/L (98-107) 109 mmol/L (98-107) Carbon Dioxide Level 25 mmol/L (21-32) 30 mmol/L (21-32) Anion Gap 8 (6-14) 5 (6-14) Blood Urea Nitrogen 12 mg/dL (7-20) 7 mg/dL (7-20) Creatinine 1.0 mg/dL (0.6-1.0) 0.9 mg/dL (0.6-1.0) Estimated GFR (Cockcroft-Gault) 55.0 62.1 Glucose Level 112 mg/dL (70-99) 132 mg/dL (70-99) Calcium Level 6.9 mg/dL (8.5-10.1) 7.4 mg/dL (8.5-10.1) Phosphorus Level 2.0 mg/dL (2.6-4.7) 2.1 mg/dL (2.6-4.7) Magnesium Level 1.2 mg/dL (1.8-2.4) 1.9 mg/dL (1.8-2.4) Laboratory Tests Test 02/12/17 05:30 Sodium Level 144 mmol/L (136-145) Potassium Level 3.4 mmol/L (3.5-5.1) Chloride Level 109 mmol/L (98-107) Carbon Dioxide Level 30 mmol/L (21-32) Anion Gap 5 (6-14) Blood Urea Nitrogen 7 mg/dL (7-20) Creatinine 0.9 mg/dL (0.6-1.0) Estimated GFR (Cockcroft-Gault) 62.1 Glucose Level 132 mg/dL (70-99) Calcium Level 7.4 mg/dL (8.5-10.1) Phosphorus Level 2.1 mg/dL (2.6-4.7) Magnesium Level 1.9 mg/dL (1.8-2.4) Problem List s/p ileocolic resection cont clears, await bowel fxn cont TPN, will need home health Problems: RANJANA PEDROZA MD Feb 12, 2017 08:14
[2017-02-12] MEDS: FLUTICASONE 50MCG/NASAL SPRAY 16GM BOTTLE. NS SCH (09:40)
--- NOTE | 2017-02-12 09:58 | PDOC ---
Subjective: Subjective: NG out, no flatus, on clears. Pain w/ movement. Objective: Vital Signs: Vital Signs Date Time Temp Pulse Resp B/P (MAP) Pulse Ox O2 Delivery O2 Flow Rate FiO2 02/12/17 07:00 97.9 91 20 127/59 (81) 93 Nasal Cannula 3.0 97.9 Labs: Laboratory Tests Test 02/12/17 05:30 Sodium Level 144 mmol/L Potassium Level 3.4 mmol/L Chloride Level 109 mmol/L Carbon Dioxide Level 30 mmol/L Anion Gap 5 Blood Urea Nitrogen 7 mg/dL Creatinine 0.9 mg/dL Estimated GFR (Cockcroft-Gault) 62.1 Glucose Level 132 mg/dL Calcium Level 7.4 mg/dL Phosphorus Level 2.1 mg/dL Magnesium Level 1.9 mg/dL PE: GEN: NAD, good spiritis LUNGS: CTAB HEART: RRR ABD: BS+ NEURO/PSYCH: A & O 3 A/P: Crohn's disease s/p resections w/ short bowel syndrome -has PICC/TPN, SW following, covered for home TPN -NG out, on clears, working w/ PT -- Diet per surgery. Possible DC early next week. Scheduled for Remicade 02/23/17 - she would like to d/w Dr. Perez. MAI CURRY Feb 12, 2017 09:58
[2017-02-12 11:00] VITALS: BP 135/61
[2017-02-12] MEDS ORDERED: POTASSIUM PHOSPHATE DIBASIC 13.6 MMOL in IV NORMAL SALINE 100ML 100 ML IV ONE (11:00)
[2017-02-12] MEDS ORDERED: LANSOPRAZOLE 30 MG TAB.RAP.DR PO SCH (11:00)
[2017-02-12] MEDS: TPN PER PHARMACY MC PRN (12:40)
[2017-02-12 15:00] VITALS: BP 132/70
[2017-02-12 19:15] VITALS: BP 139/64
[2017-02-12] MEDS: ENOXAPARIN 40 MG/0.4 ML SYRINGE. SQ SCH (21:17)
[2017-02-12] MEDS ORDERED: DEXTROSE 70% IV SCH ×10 (22:00)
[2017-02-12] MEDS ORDERED: AMINO ACIDS IV SCH ×10 (22:00)
[2017-02-12] MEDS ORDERED: [UNRECOGNIZED DRUG - OTHER] IV SCH ×10 (22:00)
[2017-02-12] MEDS ORDERED: TOTAL PARENTERAL NUTRITION IV SCH ×10 (22:00)
[2017-02-12 23:00] VITALS: BP 127/68
[2017-02-13] MEDS: IV RINGERS,LACTATED 1000ML 1,000 ML IV SCH ×2 (02:32→22:30)
[2017-02-13 03:00] VITALS: BP 144/72
[2017-02-13 06:46] LABS: CALCIUM 7.1 mg/dL (8.5-10.1); CREATININE 0.9 mg/dL (0.6-1.0); GFR 62.1; MAGNESIUM 1.8 mg/dL (1.8-2.4); PHOSPHORUS 3.1 mg/dL (2.6-4.7); POTASSIUM 4.2 mmol/L (3.5-5.1)
[2017-02-13 07:00] VITALS: BP 127/63
[2017-02-13] MEDS: FLUTICASONE 50MCG/NASAL SPRAY 16GM BOTTLE. NS SCH (09:00)
[2017-02-13] MEDS: LANSOPRAZOLE 30 MG TAB.RAP.DR PO SCH (09:00)
[2017-02-13 11:00] VITALS: BP 133/72
[2017-02-13] MEDS: TPN PER PHARMACY MC PRN (12:29)
--- NOTE | 2017-02-13 14:57 | PDOC ---
Provider Note Provider Note SURG Selvin Perez POD 4 ileo-colic resection hungry has had some stools would like more to eat vss afebrile belly soft, non distended advance to fulls HARSHAD ROJAS MD Feb 13, 2017 14:57
[2017-02-13 15:00] VITALS: BP 134/64
[2017-02-13 19:00] VITALS: BP 144/69
[2017-02-13] MEDS: ENOXAPARIN 40 MG/0.4 ML SYRINGE. SQ SCH (21:20)
[2017-02-13] MEDS ORDERED: [UNRECOGNIZED DRUG - OTHER] IV SCH ×10 (22:00)
[2017-02-13] MEDS ORDERED: TOTAL PARENTERAL NUTRITION IV SCH ×10 (22:00)
[2017-02-13] MEDS ORDERED: AMINO ACIDS IV SCH ×10 (22:00)
[2017-02-13] MEDS ORDERED: DEXTROSE 70% IV SCH ×10 (22:00)
[2017-02-13 22:44] VITALS: BP 125/58
[2017-02-14 03:00] VITALS: BP 127/67
[2017-02-14 07:00] VITALS: BP 118/71
[2017-02-14] MEDS: FLUTICASONE 50MCG/NASAL SPRAY 16GM BOTTLE. NS SCH (08:37)
[2017-02-14] MEDS: LANSOPRAZOLE 30 MG TAB.RAP.DR PO SCH (08:37)
[2017-02-14 11:00] VITALS: BP 116/67
[2017-02-14] MEDS: TPN PER PHARMACY MC PRN ×3 (11:22→13:33)
--- NOTE | 2017-02-14 11:31 | PDOC ---
Provider Note Provider Note SURG Selvin Perez POD 5 doing well would like real food will advance diet, wean TPN HARSHAD ROJAS MD Feb 14, 2017 11:31
[2017-02-14] MEDS: IV RINGERS,LACTATED 1000ML 1,000 ML IV SCH (12:58)
[2017-02-14] MEDS: HYDROcodone/APAP 5/325MG 1 TAB TABLET PO PRN ×2 (13:09→20:57)
[2017-02-14 15:00] VITALS: BP 110/60
[2017-02-14 15:13] LABS: CALCIUM 7.7 mg/dL (8.5-10.1); POTASSIUM 3.9 mmol/L (3.5-5.1)
[2017-02-14 19:00] VITALS: BP 103/49
[2017-02-14] MEDS: ENOXAPARIN 40 MG/0.4 ML SYRINGE. SQ SCH (20:58)
[2017-02-14] MEDS ORDERED: TOTAL PARENTERAL NUTRITION IV SCH ×10 (22:00)
[2017-02-14] MEDS ORDERED: AMINO ACIDS IV SCH ×10 (22:00)
[2017-02-14] MEDS ORDERED: [UNRECOGNIZED DRUG - OTHER] IV SCH ×10 (22:00)
[2017-02-14] MEDS ORDERED: DEXTROSE 70% IV SCH ×10 (22:00)
[2017-02-14 23:00] VITALS: BP 111/54
[2017-02-15 03:00] VITALS: BP 103/60
[2017-02-15] MEDS: HYDROcodone/APAP 5/325MG 1 TAB TABLET PO PRN ×3 (04:54→23:24)
[2017-02-15 06:46] LABS: CALCIUM 7.4 mg/dL (8.5-10.1); CREATININE 1.1 mg/dL (0.6-1.0); GFR 49.2; POTASSIUM 3.5 mmol/L (3.5-5.1)
[2017-02-15 07:00] VITALS: BP 115/60
[2017-02-15 07:00] LABS: MAGNESIUM 1.9 mg/dL (1.8-2.4)
[2017-02-15 07:04] LABS: PHOSPHORUS 4.3 mg/dL (2.6-4.7)
[2017-02-15] MEDS: LANSOPRAZOLE 30 MG TAB.RAP.DR PO SCH (09:57)
[2017-02-15] MEDS: FLUTICASONE 50MCG/NASAL SPRAY 16GM BOTTLE. NS SCH (09:58)
[2017-02-15 11:00] VITALS: BP 120/61
--- NOTE | 2017-02-15 11:04 | PDOC ---
SURGICAL PROGRESS NOTE Subjective tolerating diet On tpn, plans for DC home with TPN + BM today Vital Signs Vital Signs Date Time Temp Pulse Resp B/P (MAP) Pulse Ox O2 Delivery O2 Flow Rate FiO2 02/15/17 07:00 98.6 95 20 115/60 (78) 95 Nasal Cannula 3.0 98.6 I&O Intake and Output 02/15/17 07:00 Intake Total 1771 ml Output Total 1 ml Balance 1770 ml Intake Oral 1380 ml Other 391 ml Stool Total 1 ml # Voids 5 General: Alert, Oriented X3, Cooperative, No acute distress Abdomen: Soft, Other (ND, incision c/d/i, no erythema ) Labs Laboratory Tests Test 02/14/17 14:48 02/15/17 06:20 Sodium Level 141 mmol/L (136-145) 144 mmol/L (136-145) Potassium Level 3.9 mmol/L (3.5-5.1) 3.5 mmol/L (3.5-5.1) Chloride Level 105 mmol/L (98-107) 108 mmol/L (98-107) Carbon Dioxide Level 31 mmol/L (21-32) 32 mmol/L (21-32) Anion Gap 5 (6-14) 4 (6-14) Blood Urea Nitrogen 7 mg/dL (7-20) 8 mg/dL (7-20) Creatinine 1.0 mg/dL (0.6-1.0) 1.1 mg/dL (0.6-1.0) Estimated GFR (Cockcroft-Gault) 55.0 49.2 Glucose Level 106 mg/dL (70-99) 115 mg/dL (70-99) Calcium Level 7.7 mg/dL (8.5-10.1) 7.4 mg/dL (8.5-10.1) Phosphorus Level 4.3 mg/dL (2.6-4.7) Magnesium Level 1.9 mg/dL (1.8-2.4) Laboratory Tests Test 02/14/17 14:48 02/15/17 06:20 Sodium Level 141 mmol/L (136-145) 144 mmol/L (136-145) Potassium Level 3.9 mmol/L (3.5-5.1) 3.5 mmol/L (3.5-5.1) Chloride Level 105 mmol/L (98-107) 108 mmol/L (98-107) Carbon Dioxide Level 31 mmol/L (21-32) 32 mmol/L (21-32) Anion Gap 5 (6-14) 4 (6-14) Blood Urea Nitrogen 7 mg/dL (7-20) 8 mg/dL (7-20) Creatinine 1.0 mg/dL (0.6-1.0) 1.1 mg/dL (0.6-1.0) Estimated GFR (Cockcroft-Gault) 55.0 49.2 Glucose Level 106 mg/dL (70-99) 115 mg/dL (70-99) Calcium Level 7.7 mg/dL (8.5-10.1) 7.4 mg/dL (8.5-10.1) Phosphorus Level 4.3 mg/dL (2.6-4.7) Magnesium Level 1.9 mg/dL (1.8-2.4) Problem List s/p ileocolic resection, short bowel syndrome DC planning, home on TPN resume her warfarin, pharmacy consult placed Problems: DEAN LEMA APRN Feb 15, 2017 11:04
--- NOTE | 2017-02-15 11:21 | PDOC ---
Subjective: Subjective: Doing better. Gassy but also stooling (mostly loose). Tolerating soft foods. Objective: Vital Signs: Vital Signs Date Time Temp Pulse Resp B/P (MAP) Pulse Ox O2 Delivery O2 Flow Rate FiO2 02/15/17 07:00 98.6 95 20 115/60 (78) 95 Nasal Cannula 3.0 98.6 Labs: Laboratory Tests Test 02/14/17 14:48 02/15/17 06:20 Sodium Level 141 mmol/L 144 mmol/L Potassium Level 3.9 mmol/L 3.5 mmol/L Chloride Level 105 mmol/L 108 mmol/L Carbon Dioxide Level 31 mmol/L 32 mmol/L Anion Gap 5 4 Blood Urea Nitrogen 7 mg/dL 8 mg/dL Creatinine 1.0 mg/dL 1.1 mg/dL Estimated GFR (Cockcroft-Gault) 55.0 49.2 Glucose Level 106 mg/dL 115 mg/dL Calcium Level 7.7 mg/dL 7.4 mg/dL Phosphorus Level 4.3 mg/dL Magnesium Level 1.9 mg/dL PE: GEN: NAD, smiling LUNGS: CTAB HEART: RRR ABD: soft NEURO/PSYCH: A & O 3 A/P: Crohn's disease s/p resections w/ short bowel syndrome -- Improved, tolerating PO, also has TPN (plans for home w/ this). DC per primary/surgery. Follow-up w/ GI as planned. Previous discussion re: possible need for MCT oil or Gattex. Scheduled to continue Remicade 02/23/17. MAI CURRY Feb 15, 2017 11:21
[2017-02-15] MEDS: IV RINGERS,LACTATED 1000ML 1,000 ML IV SCH (14:30)
[2017-02-15 15:00] VITALS: BP 117/63
[2017-02-15] MEDS ORDERED: WARFARIN 7.5 MG TABLET. PO ONE (16:00)
--- NOTE | 2017-02-15 16:56 | PATHOLOGY ---
PATHOLOGY REPORT * * * * * * * * FINAL DIAGNOSIS: A. 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 - Colonic margin of resection and mesenteric margins of resection negative for tumor. - Active chronic ileitis, segmental. - Four mesenteric lymph nodes negative for tumor (0/4). - Ileocolic anastomosis with suture granulomas. B. 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 - Proximal ileum margin of resection and mesenteric margins of resection negative for tumor. - Active chronic ileitis, segmental. - Eight mesenteric lymph nodes negative for tumor (0/8). COMMENT: It is my understanding that these two specimens are contiguous. Specimen A, designated transverse colon, consists predominantly of small intestine (ileum) with a short contiguous segment of colon and ileocolic anastomosis. Specimen B, designated terminal ileum, consists of small intestine. Microscopic sections reveal an invasive poorly differentiated adenocarcinoma with signet ring cell features which appears to be arising within a segment of active chronic ileitis. The tumor appears to involve the area where the two specimens . There is a more definitive circumferential ulcerated tumor mass present within specimen B, which measures up to 6.2 cm in greatest dimension. The tumor involving specimen A is less obvious grossly and measures up to 2.6 cm in greatest dimension on the glass slide. There are a total of twelve mesenteric lymph nodes which are negative for tumor. 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 (JPM:; 02/15/2017) Special Stains Performed: AE1/AE3, CK7, CK20, CDX-2, CD45 (B5) REPORT ELECTRONICALLY SIGNED BY: Leonel Centeno M.D. DATE/TIME: 02/15/2017 16:56 * * * * * * * * GROSS PATHOLOGY: A. The specimen is received in formalin, labeled "Samboltransverse colon" is an unoriented segment of intestine measuring 18.7 cm in length and ranging in circumference from 3.3 cm up to 8.3 cm. One end is opened and the opposite end is stapled. The stapled end is designated as the true margin. The serosa is iverson-pink, smooth and displays mesentery which runs the entire length of the specimen and measures up to 4.4 cm in thickness. The specimen is opened to reveal a iverson-pink mucosa which transitions to a segment of abnormal erythematous and irregular mucosa measuring 9.7 cm in length. The abnormal mucosa extends to the opened end and is 7.2 cm from the opposite margin. The transformation from the normal appearing mucosa to the abnormal mucosa is gradual. Sectioning through the specimen reveals the intestinal wall ranges in thickness from 0.4 up to 0.6 cm. The mesentery reveals soft yellow fatty tissue containing 4 possible lymph nodes ranging in size from 0.4 up to 0.6 cm. Section code: A1 resection margin, A2 through A5-technical service representative sections of the intestine submitted sequentially from one end to the opposite end, A6-4 possible lymph nodes. B. The specimen is received in formalin, labeled "Sambolterminal ileum" is a segment of intestine measuring 21.4 cm in length and ranging in circumference from 4.0 cm up to 8.2 cm. One end of the specimen is opened and the opposite end is stapled. The stapled end is designated as the true margin. The serosa is iverson-pink, smooth and displays mesentery which runs the entire length of the specimen and measures up to 6.2 cm in thickness. Specimen is opened to reveal a iverson-pink mucosa which transitions to a segment of abnormal erythematous irregular mucosa measuring up to 13.2 cm in length. The abnormal mucosa extends to the opened end, and is located 8.2 cm from the true margin. The transformation from the abnormal mucosa to normal pink mucosa is gradual. Identified within the abnormal segment of intestine is a circumferential, ulcerated lesion measuring 6.2 x 4.2 cm which is located 14.6 cm from the resection margin. Sectioning through the lesion reveals invasion deep into the muscular wall. The lesion is 5.2 cm from the mesenteric margin. Identified in the mesentery are 8 possible lymph nodes ranging in size from 0.5 x 0.4 x 0.4 up to 0.9 x 0.5 x 0.4 cm. Section code: B1-stapled margin, B2-mesenteric margin, B3 through B6-technical service representative sections of specimen submitted sequentially from one end to the opposite end with sections of ulcerated lesion submitted as B5 and B6; B7-6 possible lymph nodes, B8-2 possible lymph nodes. (DRL/JPM; 02/12/2017) INITIAL CPT CODE(S): A; 83851 B; 71800, 47141, 51175, 27479, 32916, 57805 Professional services performed [place] [facility] [address] Technical services performed by [facility] at [address] [place] [address]. SPECIMEN(S) RECEIVED: A.Transverse colon B.Terminal ileum CLINICAL HISTORY: Crohn's disease. PATIENT: SAMAN MOURA /AGE: [id number] 1945 (Age: 71) PATIENT #: [id number] ALT CASE #: SPECIMEN COLLECTION DATE: 02/09/2017 SPECIMEN RECEIVED DATE: 02/09/2017 [facility] - [id number] [place] [id number] - PHONE: [phone] * * * END OF REPORT * * *
[2017-02-15 19:00] VITALS: BP 125/55
[2017-02-15 22:02] LABS: % SAT IRON 8 % (15-34); IRON,SERUM 17 ug/dL (50-170)
[2017-02-15] MEDS: ENOXAPARIN 40 MG/0.4 ML SYRINGE. SQ SCH (22:28)
[2017-02-15 23:00] VITALS: BP 117/58
[2017-02-16 03:00] VITALS: BP 98/47
[2017-02-16] MEDS: IV RINGERS,LACTATED 1000ML 1,000 ML IV SCH (03:31)
[2017-02-16 07:00] VITALS: BP 134/62
[2017-02-16] MEDS ORDERED: IRON SUCROSE COMPLEX 500 MG in IV NORMAL SALINE 250ML 250 ML IV ONE (07:00)
[2017-02-16] MEDS: LANSOPRAZOLE 30 MG TAB.RAP.DR PO SCH (08:35)
[2017-02-16] MEDS: HYDROcodone/APAP 5/325MG 1 TAB TABLET PO PRN (08:37)
[2017-02-16] MEDS: FLUTICASONE 50MCG/NASAL SPRAY 16GM BOTTLE. NS SCH (08:44)
--- NOTE | 2017-02-16 09:45 | PDOC ---
Provider Note Provider Note Onc consult - [id number] Colon cancer arising in setting of Crohn's disease - CT chest for staging - F/u pending CEA - Discuss possible chemo in 2 wk, needs to heal/ improve nutrition first - Will discuss at cancer conference next Tues Iron def anemia - Venofer ordered, needs more as outpt Ok for anticipated DC FLAQUITO SOLARES DO Feb 16, 2017 09:45
[2017-02-16 11:00] VITALS: BP 121/69
--- NOTE | 2017-02-16 11:31 | PDOC3 ---
Discharge Summary Visit Information Date of Admission: Feb 09, 2017 Date of Discharge: Feb 16, 2017 Admitting Diagnosis: Crohn's with stricture Final Diagnosis same small bowel cancer Brief Hospital Course Allergies Allergies Coded Allergies Type Severity Reaction Last Updated Verified codeine Allergy Severe Shortness of Air 02/09/17 Yes oxycodone Allergy Severe soa 02/09/17 Yes Iodinated Contrast- Oral and IV Dye Allergy Intermediate Rash 02/09/17 Yes Penicillins Allergy Intermediate rash 02/09/17 Yes adhesive tape Allergy Mild 02/09/17 Yes Vital Signs Vital Signs Date Time Temp Pulse Resp B/P (MAP) Pulse Ox O2 Delivery O2 Flow Rate FiO2 02/16/17 09:41 95 Room Air 02/16/17 07:00 97.9 97 19 134/62 (86) 97.9 02/15/17 07:00 3.0 Lab Results Laboratory Tests Test 02/14/17 14:48 02/15/17 06:20 Sodium Level 141 mmol/L (136-145) 144 mmol/L (136-145) Potassium Level 3.9 mmol/L (3.5-5.1) 3.5 mmol/L (3.5-5.1) Chloride Level 105 mmol/L (98-107) 108 mmol/L (98-107) Carbon Dioxide Level 31 mmol/L (21-32) 32 mmol/L (21-32) Anion Gap 5 (6-14) 4 (6-14) Blood Urea Nitrogen 7 mg/dL (7-20) 8 mg/dL (7-20) Creatinine 1.0 mg/dL (0.6-1.0) 1.1 mg/dL (0.6-1.0) Estimated GFR (Cockcroft-Gault) 55.0 49.2 Glucose Level 106 mg/dL (70-99) 115 mg/dL (70-99) Calcium Level 7.7 mg/dL (8.5-10.1) 7.4 mg/dL (8.5-10.1) Phosphorus Level 4.3 mg/dL (2.6-4.7) Magnesium Level 1.9 mg/dL (1.8-2.4) Iron Level 17 ug/dL (50-170) Total Iron Binding Capacity 220 ug/dL (250-450) Iron Saturation 8 % (15-34) Ferritin 66 ng/mL (8-252) Brief Hospital Course Ms. Duckworth is a 71 old F with crohn's stricture. She underwent extensive resection. She is noted to have short bowel syndrome and started on TPN. Pathology demonstrated small bowel cancer arising within crohn's inflammation. She is doing well and discharge home on TPN. She is to f/u in 2 weeks. She has been seen by oncology and will f/u for adjuvant therapy. Discharge Information Condition at Discharge: Improved Follow Up: Weeks (2) Disposition/Orders: D/C to Home w/ HH Scheduled Cholecalciferol (Vitamin D3) (Vitamin D3), 1 TAB PO DAILY, (Reported) Infliximab (Remicade), 100 MG IV UD, (Reported) Lansoprazole (Lansoprazole), 1 CAP PO DAILY, (Reported) Lubiprostone (Amitiza), 1 CAP PO BID, (Reported) Multivitamin (Multivitamins), 1 TAB PO DAILY, (Reported) Warfarin Sodium (Coumadin), 1 TAB PO DAILY, (Reported) Scheduled PRN Albuterol Sulfate (Proair Hfa Inhaler), 1 PUFF INH PRN Q6HRS PRN for SHORTNESS OF BREATH, (Reported) Cyclobenzaprine Hcl (Cyclobenzaprine Hcl), 1 TAB PO TID PRN for MUSCLE SPASMS, ( Reported) Loratadine (Claritin), 5 ML PO DAILY PRN for ALLERGIES, (Reported) RANJANA PEDROZA MD Feb 16, 2017 11:31
--- NOTE | 2017-02-16 11:38 | CONS ---
DATE OF CONSULTATION: 02/16/2017 REFERRING PROVIDER: Dr. Perez. REASON FOR CONSULTATION: Colon cancer. HISTORY OF PRESENT ILLNESS: The patient is a 71-year-old female, who has had a long-term history of Crohn disease on Remicade infusion for at least the last 13 years. She has had recurrent colon strictures and small bowel obstructions status post 2 previous surgeries, now with a hemicolectomy for right colon stricture on 02/09/2017. Her pathology did return showing poorly differentiated adenocarcinoma with signet ring features invading at least to the subserosa measuring 6.2 cm in 1 specimen and 2.6 cm in another specimen. 0/12 lymph nodes were involved. There was active chronic ileitis seen as well. She has chronic baseline diarrhea from her Crohn disease and previous bowel surgery. She has been started on long-term TPN and will discharge home with this. PAST MEDICAL HISTORY: Crohn disease, COPD, recurrent nephrolithiasis, chronic anemia, recurrent small bowel obstructions, pulmonary embolism in 1973 associated with her hysterectomy, 2 right lower extremity DVTs at a later date, chronic anticoagulation and cervical cancer. PAST SURGICAL HISTORY: Two previous small-bowel obstruction surgeries, most recently hemicolectomy for colonic stricture on 02/09/2017, ureteral stent placement, hysterectomy, tonsillectomy, tubal ligation, heel fracture surgery, cholecystectomy, ERCP and appendectomy. FAMILY HISTORY: No history of any malignancies. Two family members with Crohn disease. SOCIAL HISTORY: Previously smoked, but quit in 1997. Social alcohol use. Lives with her daughter, reports being very active at baseline. ALLERGIES: IODINE CONTRAST, PENICILLIN, TAPE, CODEINE AND OXYCODONE. CURRENT MEDICATIONS: Coumadin, Lortab, Prevacid, Tylenol, Lovenox and Zofran. REVIEW OF SYSTEMS: Ten point review of systems completed and unremarkable with the exception of chronic diarrhea, abdominal soreness following her surgery. PHYSICAL EXAMINATION: VITAL SIGNS: Temperature 100.0 degrees overnight, now afebrile at 97.9, pulse 97, respiratory rate 18, blood pressure 134/62, 95% O2 on room air. GENERAL: She is alert and oriented and in no distress. She appears to be in overall good health with a good baseline performance status. HEENT: Extraocular muscles are intact. Sclerae are without icterus. Mucous membranes are moist. CARDIOVASCULAR: Heart is regular in rhythm and rate. LUNGS: Clear to auscultation bilaterally. ABDOMEN: Soft, nontender. EXTREMITIES: No edema. NEUROLOGIC: No focal deficits. IMAGING AND LABORATORY DATA: Hemoglobin 9.3, MCV 76, WBC, and platelets are unremarkable. I added on iron test which returned low with a serum iron of 17, percent iron saturation 8. The previous CT of abdomen/pelvis in November showed thickened distal transverse colon with minimal surrounding fat suggestive of mild colitis or possible neoplasm. Pathology reviewed as above. ASSESSMENT AND PLAN: The patient is a 71-year-old female with the following medical problems: 1. Colon cancer arising in the setting of Crohn disease. Unfortunately, these caners tend to be very aggressive. We need to review her pathology at our cancer conference as it appears that it was somewhat complicated. It is at least a T3 lesion invading through the subserosa that appears to have 0/12 lymph nodes involved, so possibly this could be a stage IIA malignancy. CEA is pending. I have ordered a CT chest for full staging. We will also request MSI testing to see if chemotherapy would be beneficial. I am going to set up followup in 2 weeks [address] clinic with Dr. Sanchez. We discussed that no treatment can be given until her nutritional status improves and she continues to recover from her recent surgery on 02/09/2017. 2. Crohn disease. Historically on Remicade, which will have to stop now that she has a proven malignancy. 3. Iron deficiency anemia due to chronic blood loss. I am giving 500 mg of Venofer today. She will need further IV iron, which we can arrange in clinic in the future. 4. Chronic diarrhea, malnutrition. Planning to discharge on TPN. It is my understanding that she plans to discharge to home today. From an oncology standpoint, that is very reasonable and we will certainly set up followup in our clinic in 2 weeks. FLAQUITO SOLARES DO DR: Ginette JOB#: [id number] / [id number] ROMINA
--- NOTE | 2017-02-16 12:07 | PDOC ---
Subjective: Subjective: Going home today. Objective: Objective: D/w Dr. Perez, reviewed Dr. Howard's note. Receiving Venofer. PATHOLOGY REPORT * * * * * * * * FINAL DIAGNOSIS: A. 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 - Colonic margin of resection and mesenteric margins of resection negative for tumor. - Active chronic ileitis, segmental. - Four mesenteric lymph nodes negative for tumor (0/4). - Ileocolic anastomosis with suture granulomas. B. 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 - Proximal ileum margin of resection and mesenteric margins of resection negative for tumor. - Active chronic ileitis, segmental. - Eight mesenteric lymph nodes negative for tumor (0/8). COMMENT: It is my understanding that these two specimens are contiguous. Specimen A, designated transverse colon, consists predominantly of small intestine (ileum) with a short contiguous segment of colon and ileocolic anastomosis. Specimen B , designated terminal ileum, consists of small intestine. Microscopic sections reveal an invasive poorly differentiated adenocarcinoma with signet ring cell features which appears to be arising within a segment of active chronic ileitis. The tumor appears to involve the area where the two specimens . There is a more definitive circumferential ulcerated tumor mass present within specimen B, which measures up to 6.2 cm in greatest dimension. The tumor involving specimen A is less obvious grossly and measures up to 2.6 cm in greatest dimension on the glass slide. There are a total of twelve mesenteric lymph nodes which are negative for tumor. 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 Vital Signs: Vital Signs Date Time Temp Pulse Resp B/P (MAP) Pulse Ox O2 Delivery O2 Flow Rate FiO2 7/25/17 09:41 95 Room Air 02/16/17 07:00 97.9 97 19 134/62 (86) 97.9 02/15/17 07:00 3.0 PE: GEN: NAD LUNGS: CTAB HEART: RRR ABD: soft NEURO/PSYCH: A & O 3 A/P: Adenocarcinoma, small bowel origin Crohn's disease s/p resections w/ short bowel syndrome ALEJANDRO -- Plans for DC today, follow-up planned w/ oncology. Cancel scheduled Remicade infusion, d/w our office. MAI CURRY Feb 16, 2017 12:07
--- NOTE | 2017-02-16 15:38 | RAD ---
CT of the chest without contrast, 02/16/2017: History: Staging colon cancer Noncontrast scans were obtained as requested. A right-sided central venous catheter extends into the superior vena cava. There is mild calcific plaquing of the thoracic aorta without evidence of aneurysm. Mild to moderate coronary calcifications are present. No mediastinal adenopathy is seen. Emphysematous changes are present in the lungs. There are scattered linear scars, most prominent medially in the right lower lobe. There is mild adjacent pleural thickening in this region, probably due to scarring. No pleural fluid is evident. There are numerous tiny nodular opacities in both lungs. The majority of these measure only 1 to 2 mm. Their distribution tends to be random. Similar tiny nodular opacities were seen in the lung bases on previous CT abdomen studies. A 6 mm opacity seen laterally in the right middle lobe on the axial images, demonstrates an elongated configuration in the coronal, plane most compatible with a scar. There is a mild thoracic scoliosis with mild scattered degenerative changes. IMPRESSION: 1. Emphysema with pleural/parenchymal scarring. 2. Numerous very tiny lung nodules are most likely postinflammatory in nature. Metastatic disease is less likely. 3. Calcific plaquing of the aorta and coronary arteries. , PQRS Compliance Statement: One or more of the following individualized dose reduction techniques were utilized for this examination: 1. Automated exposure control 2. Adjustment of the mA and/or kV according to patient size 3. Use of iterative reconstruction technique
== END 2017-02-16 13:12 | disposition home health service (06) | DRG 329 ==
LOC: OPSVCIP 05:48 → 4 NORTH 15:36
PROVIDERS: ADMIT Surgery; ATTEND Surgery
PROC: 0SP90JZ Removal of Synthetic Substitute from Right Hip Joint, Open Approach (ICD-10-PCS; 2017-02-09)
PROC: 30233N1 Transfusion of Nonautologous Red Blood Cells into Peripheral Vein, Percutaneous Approach (ICD-10-PCS; 2017-02-09)
PROC: 0SH908Z Insertion of Spacer into Right Hip Joint, Open Approach (ICD-10-PCS; 2017-02-09)
PROC: 0DTB0ZZ Resection of Ileum, Open Approach (ICD-10-PCS; principal; 2017-02-10)
PROC: 0DN80ZZ Release Small Intestine, Open Approach (ICD-10-PCS; 2017-02-10)
PROC: 02HV33Z Insertion of Infusion Device into Superior Vena Cava, Percutaneous Approach (ICD-10-PCS; 2017-02-10)
PROC: B5181ZA Fluoroscopy of Superior Vena Cava using Low Osmolar Contrast, Guidance (ICD-10-PCS; 2017-02-10)
PROC: B548ZZA Ultrasonography of Superior Vena Cava, Guidance (ICD-10-PCS; 2017-02-10)
DX: C17.9 Malignant neoplasm of small intestine, unspecified (principal); E43 Unspecified severe protein-calorie malnutrition; K50.90 Crohn's disease, unspecified, without complications; K56.7 Ileus, unspecified; D50.0 Iron deficiency anemia secondary to blood loss (chronic); I10 Essential (primary) hypertension; J44.9 Chronic obstructive pulmonary disease, unspecified; K21.9 Gastro-esophageal reflux disease without esophagitis; N28.1 Cyst of kidney, acquired; Z53.31 Laparoscopic surgical procedure converted to open procedure; Z79.01 Long term (current) use of anticoagulants; Z85.41 Personal history of malignant neoplasm of cervix uteri; Z86.711 Personal history of pulmonary embolism; Z87.442 Personal history of urinary calculi; Z87.891 Personal history of nicotine dependence; Z90.49 Acquired absence of other specified parts of digestive tract; Z90.710 Acquired absence of both cervix and uterus; Z88.0 Allergy status to penicillin; Z88.5 Allergy status to narcotic agent; Z88.8 Allergy status to other drugs, medicaments and biological substances; Z68.30 Body mass index [BMI] 30.0-30.9, adult; Z91.041 Radiographic dye allergy status
CPT/HCPCS: 36415; 36558; 71250; 74000; 76937; 77001; 80048; 80053; 82607; 82728; 83540; 83550; 83735; 84100; 85007; 85014; 85018; 85027; 85610; 85730; 86850; 86900; 86901; 86920; 88309; 88341; 88342; 99152; C1751; C1892; J0610; J0694; J1100; J1170; J1644; J1650; J1756; J2001; J2250; J2370; J2405; J2704; J2710; J3010; J3475; J3490; J7030; J7050; J7060; J7120; P9016; P9045; S0028; 97116; 97530; 97535

== ENCOUNTER 2017-02-19 14:34 | Emergency (ER) | payer MEDICARE ==
[~2017-02-19] VITALS: Ht 165.1 cm; Wt 80.7 kg
[2017-02-19] MEDS ORDERED: ONDANSETRON PF 4 MG/2 ML VIAL. IV ONE (15:15)
[2017-02-19] MEDS ORDERED: IV NORMAL SALINE 1000ML BAG 1,000 ML IV SCH (15:15)
[2017-02-19 15:28] LABS: BASO # 0.1 x10^3/uL (0.0-0.2); BASO % 0 % (0-3); EOS % 3 % (0-3); HEMATOCRIT 28.8 % (36.0-47.0); HEMOGLOBIN 9.4 g/dL (12.0-15.5); LYMPH # 3.3 x10^3/uL (1.0-4.8); LYMPH % 26 % (24-48); MEAN CORPUSCULAR HEMOGLOBIN 26 pg (25-35); MEAN CORPUSCULAR HGB CONC 33 g/dL (31-37); MEAN CORPUSCULAR VOLUME 79 fL (79-100); MONO % 5 % (0-9); NEUT % 66 % (31-73); PLATELET COUNT 516 x10^3/uL (140-400); RED BLOOD COUNT 3.63 x10^6/uL (3.50-5.40); RED CELL DISTRIBUTION WIDTH 26.8 % (11.5-14.5); WHITE BLOOD COUNT 12.5 x10^3/uL (4.0-11.0)
[2017-02-19 15:40] LABS: CALCIUM 8.9 mg/dL (8.5-10.1); CREATININE 1.3 mg/dL (0.6-1.0); GFR 40.6; POTASSIUM 4.2 mmol/L (3.5-5.1)
[2017-02-19 15:45] LABS: ALBUMIN 2.5 g/dL (3.4-5.0); ALBUMIN/GLOBULIN RATIO 0.6 (1.0-1.7); TOTAL BILIRUBIN 0.9 mg/dL (0.2-1.0); TOTAL PROTEIN 6.9 g/dL (6.4-8.2)
--- NOTE | 2017-02-19 16:25 | RAD ---
CT abdomen and pelvis without contrast 02/19/2017 Indication: Concern for bowel obstruction or infection. Recent surgery. Comparison: CT abdomen and pelvis 12/07/2016, CT chest 02/16/2017, MRCP 11/11/2016. Technique: CT helical acquisition of the abdomen and pelvis was obtained without contrast according to standard protocol. Coronal and sagittal reformations were obtained. PQRS Compliance Statement: One or more of the following individualized dose reduction techniques were utilized for this examination: 1. Automated exposure control 2. Adjustment of the mA and/or kV according to patient size 3. Use of iterative reconstruction technique Findings: Abdomen and pelvis: Heart size is normal with coronary artery calcifications. Minimal linear scarring and/or atelectasis in the lingula. Progress evaluation of the solid abdominopelvic viscera, lymphadenopathy and vasculature is limited in the absence of intravenous contrast. Unenhanced contours of the liver, spleen, adrenal glands and pancreas are grossly unremarkable. Unchanged bilateral nonobstructive stone burden in both kidneys, largest on the left and this appear pole measuring up to 10 mm. There are 2 adjacent nonobstructive stones in the right renal pelvis measuring 17 cm in conglomerate. There is unchanged multilobulated cyst with internal septation and the interpolar right kidney measuring up to 5.3 x 2.5 cm and not significant change since 02/10/2015 examination, though incompletely evaluated without contrast. Scattered areas of cortical scarring most prominent in the inferior pole the left kidney. No hydroureteronephrosis. Prior right hemicolectomy and ileocolic anastomosis. Prior ventral hernia repair with mesh. There is scattered mesenteric and omental stranding most prominently anteriorly and in the right lower quadrant. There is thin amount of fluid without a thick rim or internal gas in the anterior lower abdomen anterior-inferior to the ileocolic anastomosis measuring 5.3 cm TV x 1.1 cm AP x 3.7 cm CC (series 3/image 50, series 6/image 39). There is a tiny fat-containing incisional hernia at anterior abdomen midline. No bowel obstruction and. Moderate amount of liquid stool in the distal colon just proximal to the rectum. No bowel obstruction. No pneumatosis. No portal venous gas. Mildly distended and unopacified urinary bladder unremarkable. There is trace abdominal and pelvic free fluid. Prior hysterectomy at the vaginal cuff normal in appearance. Abdominal aorta is normal in caliber with moderate calcified atheromatous disease. Bilateral L5 spondylolysis with grade 2 anterolisthesis L5 on S1. There is mild bilateral hip osteoarthritis with osteophytic spurring and joint space narrowing. Impression: 1. Prior bowel resection and ileocolic anastomosis. Thin fluid anterior inferior to the anastomosis, measuring 5.3 x 1.1 x 3.7 cm, with no internal gas. Findings may represent postoperative fluid collection such as seroma or hematoma, though sterility cannot be assessed. Anastomotic leak is considered less likely given lack of gas. 2. Short segment of distal small bowel just proximal to the anastomosis demonstrates thickening and adjacent stranding, which may be due to postoperative inflammation. 3. No bowel obstruction. 4. Stable multilobulated right renal cystic structure with thin internal septations and calcifications. Follow-up nonemergent renal ultrasound in 12 months is recommended to ensure stability. 5. No significant change in extensive bilateral nonobstructive renal stone burden, including 2 clustered stones in the right renal pelvis.
[2017-02-19 16:46] LABS: PLT ESTIMATE INCREASED (ADEQUATE); POIKILOCYTOSIS SLIGHT
[2017-02-19 16:47] LABS: ANISOCYTOSIS MARKED; MICROCYTOSIS SLIGHT
[2017-02-19 17:41] VITALS: BP 128/60
[2017-02-19] MEDS ORDERED: ONDA4TAB11 PO (17:46)
--- NOTE | 2017-02-19 17:47 | PHYS DOC ---
Past Medical History Past Medical History: Arthritis, Asthma, DVT, Other Additional Past Medical Histor: kidney stones; crohns Past Surgical History: Cholecystectomy, Hysterectomy, Tonsillectomy, Tubal ligation, Other Additional Past Surgical Histo: bowel resections X 2 due to crohns; liver stent, R heel sx Additional Information: quit 1997 Alcohol Use: Rarely Drug Use: None Adult General Chief Complaint Chief Complaint: NAUSEA/VOMITING/DIARRHA HPI HPI Patient is a 71 year old female who presents with complaints of nausea, vomiting, dehydration. Denies abdominal pain but she says she feels a little bit distended. Patient had recent abdominal surgery for resection of a small bowel and large bowel. Patient is currently on TPN due to limited oral intake secondary to nausea and vomiting. Patient denies any fevers, chills, rashes. No recent sick contacts. Review of Systems Review of Systems Constitutional: Denies fever or chills [] HENT: Denies nasal congestion or sore throat [] Respiratory: Denies cough or shortness of breath [] Cardiovascular: No chest pain GI: Denies abdominal pain. History of nausea and nonbloody vomitus : Denies dysuria or hematuria [] Musculoskeletal: Denies back pain or joint pain [] Integument: Denies rash or skin lesions [] Neurologic: Denies headache, focal weakness or sensory changes [] Endocrine: Denies polyuria or polydipsia [] Current Medications Current Medications Current Medications Medications (Trade) Dose Ordered Sig/Jazmin Start Time Stop Time Status Last Admin Dose Admin Ondansetron HCl (Zofran) 4 mg 1X ONCE 02/19/17 15:15 02/19/17 15:21 DC 02/19/17 16:14 4 MG Sodium Chloride 1,000 ml @ 1,000 mls/hr Q1H 02/19/17 15:15 02/19/17 16:14 DC 02/19/17 16:14 1,000 MLS/HR Allergies Allergies Allergies Coded Allergies Type Severity Reaction Last Updated Verified codeine Allergy Severe Shortness of Air 02/09/17 Yes oxycodone Allergy Severe soa 02/09/17 Yes Iodinated Contrast- Oral and IV Dye Allergy Intermediate Rash 02/09/17 Yes Penicillins Allergy Intermediate rash 02/09/17 Yes adhesive tape Allergy Mild 02/09/17 Yes Physical Exam Physical Exam Constitutional: Well developed, well nourished, no acute distress, non-toxic appearance. [] HENT: Normocephalic, atraumatic,, oropharynx dry no oral exudates, nose normal. [] Eyes: EOMI, conjunctiva normal, no discharge. [] Neck: Normal range of motion, trachea midline [] Cardiovascular: Tachycardiac with equal pulses, no murmur, normal perfusion, no signs vascular insufficiency Lungs & Thorax: Bilateral breath sounds clear to auscultation, no tachypnea Abdomen: Bowel sounds normal, soft, no tenderness, no masses, no pulsatile masses. Recent surgical scar with no signs of infection or dehiscence, no signs of abscess Skin: Warm, dry, no erythema, no rash. Exception as above Back: No tenderness, no CVA tenderness. [] Extremities: No tenderness, no cyanosis, no clubbing, ROM intact, no edema. [] Neurologic: Alert and oriented X 3, normal motor function, no focal deficits noted. [] Psychologic: Affect normal, judgement normal, mood normal. [] Current Patient Data Vital Signs Vital Signs Date Time Temp Pulse Resp B/P (MAP) Pulse Ox O2 Delivery O2 Flow Rate FiO2 02/19/17 17:11 100 112/54 (73) Room Air 02/19/17 15:11 95 02/19/17 14:40 98.2 24 98.2 Lab Values Laboratory Tests Test 02/19/17 14:50 White Blood Count 12.5 x10^3/uL (4.0-11.0) H Red Blood Count 3.63 x10^6/uL (3.50-5.40) Hemoglobin 9.4 g/dL (12.0-15.5) L Hematocrit 28.8 % (36.0-47.0) L Mean Corpuscular Volume 79 fL (79-100) Mean Corpuscular Hemoglobin 26 pg (25-35) Mean Corpuscular Hemoglobin Concent 33 g/dL (31-37) Red Cell Distribution Width 26.8 % (11.5-14.5) H Platelet Count 516 x10^3/uL (140-400) #H Neutrophils (%) (Auto) 66 % (31-73) Lymphocytes (%) (Auto) 26 % (24-48) Monocytes (%) (Auto) 5 % (0-9) Eosinophils (%) (Auto) 3 % (0-3) Basophils (%) (Auto) 0 % (0-3) Neutrophils # (Auto) 8.3 x10^3uL (1.8-7.7) H Lymphocytes # (Auto) 3.3 x10^3/uL (1.0-4.8) Monocytes # (Auto) 0.6 x10^3/uL (0.0-1.1) Eosinophils # (Auto) 0.3 x10^3/uL (0.0-0.7) Basophils # (Auto) 0.1 x10^3/uL (0.0-0.2) Platelet Estimate Increased (ADEQUATE) Poikilocytosis Slight Anisocytosis Marked Microcytosis Slight Sodium Level 143 mmol/L (136-145) Potassium Level 4.2 mmol/L (3.5-5.1) Chloride Level 105 mmol/L (98-107) Carbon Dioxide Level 28 mmol/L (21-32) Anion Gap 10 (6-14) Blood Urea Nitrogen 15 mg/dL (7-20) Creatinine 1.3 mg/dL (0.6-1.0) H Estimated GFR (Cockcroft-Gault) 40.6 BUN/Creatinine Ratio 12 (6-20) Glucose Level 101 mg/dL (70-99) H Calcium Level 8.9 mg/dL (8.5-10.1) Total Bilirubin 0.9 mg/dL (0.2-1.0) Aspartate Amino Transferase (AST) 18 U/L (15-37) Alanine Aminotransferase (ALT) 21 U/L (14-59) Alkaline Phosphatase 114 U/L (46-116) Total Protein 6.9 g/dL (6.4-8.2) Albumin 2.5 g/dL (3.4-5.0) L Albumin/Globulin Ratio 0.6 (1.0-1.7) L Lipase 312 U/L (73-393) Laboratory Tests 02/19/17 14:50 Laboratory Tests 02/19/17 14:50 EKG EKG [] Radiology/Procedures Radiology/Procedures [] Course & Med Decision Making Course & Med Decision Making Pertinent Labs and Imaging studies reviewed. (See chart for details) Impression: 1. Prior bowel resection and ileocolic anastomosis. Thin fluid anterior inferior to the anastomosis, measuring 5.3 x 1.1 x 3.7 cm, with no internal gas. Findings may represent postoperative fluid collection such as seroma or hematoma, though sterility cannot be assessed. Anastomotic leak is considered less likely given lack of gas. 2. Short segment of distal small bowel just proximal to the anastomosis demonstrates thickening and adjacent stranding, which may be due to postoperative inflammation. 3. No bowel obstruction. 4. Stable multilobulated right renal cystic structure with thin internal septations and calcifications. Follow-up nonemergent renal ultrasound in 12 months is recommended to ensure stability. 5. No significant change in extensive bilateral nonobstructive renal stone burden, including 2 clustered stones in the right renal pelvis. Results including labs and imaging discussed with the patient and family. Copy the scan report has been given to the family and the patient to take to his PCP and discuss results with them. Patient is already aware of the renal cysts and need for follow up. Findings are all consistent with recent surgery; of note there is no signs of perforation or an anastomosis leakage or bowel obstruction. Patient has not vomited in the ED and feels improved. Patient is comfortable with discharge home and agrees to follow-up as directed. We will provide the patient with some antiemetics, she has received respiratory precautions and voices understanding of directions [] Dragon Disclaimer Dragon Disclaimer This electronic medical record was generated, in whole or in part, using a voice recognition dictation system. Departure Departure Impression: Primary Impression: Vomiting Additional Impressions: Dehydration Renal cyst Anemia Condition: IMPROVED Referrals: KENZIE STERLING MD (PCP) Patient Instructions: Anemia, Nonspecific-Brief, Dehydration, Adult, Easy-to- Read, Nausea and Vomiting Additional Instructions: Please follow-up with your PCP and surgeon for recheck in 2-4 days. If your symptoms worsen or new concerning symptoms develop return to ED immediately Scripts Ondansetron Hcl (ONDANSETRON HCL) 4 Mg Tablet 1 TAB PO PRN Q6HRS, #14 TAB 1 Refill Prov: Xavi ZIMMERMAN MD 02/19/17 Problem Qualifiers Xavi ZIMMERMAN MD Feb 19, 2017 17:47
== END 2017-02-19 18:07 | disposition home or self-care (01) ==
LOC: ER 14:34
DX: E86.0 Dehydration (principal); N28.1 Cyst of kidney, acquired; D64.9 Anemia, unspecified; R11.2 Nausea with vomiting, unspecified; J45.909 Unspecified asthma, uncomplicated; M19.90 Unspecified osteoarthritis, unspecified site; K50.90 Crohn's disease, unspecified, without complications; Z87.442 Personal history of urinary calculi; Z88.5 Allergy status to narcotic agent; Z91.041 Radiographic dye allergy status; Z91.048 Other nonmedicinal substance allergy status; Z88.0 Allergy status to penicillin; Z90.49 Acquired absence of other specified parts of digestive tract
CPT/HCPCS: 36415; 74176; 80053; 83690; 85007; 85027; 96361; 96374; 99285; J2405; J7030

== ENCOUNTER 2017-04-26 13:53 | Inpatient (IN) | payer MEDICARE ==
[~2017-04-26] VITALS: Ht 165.1 cm; Wt 72.6 kg
[~2017-04-26 13:53] MED LIST changes: +ONDA4TAB11 PO
--- NOTE | 2017-04-26 14:44 | PHYS DOC ---
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 Symptom onset was 2 weeks ago. Patient reports productive cough with yellow sputum. No fever chills, nausea vomiting or sweats. Denies abdominal pain, no leg pain or swelling. History of DVT currently on Coumadin. Patient's last INR check was 4 days ago. Patient was found to have an INR of 4. Patient referred by her call just to the ED for further evaluation. Review of Systems Review of Systems ROS as per HPI. Current Medications Current Medications Current Medications Medications (Trade) Dose Ordered Sig/Jazmin Start Time Stop Time Status Last Admin Dose Admin Diphenhydramine HCl (Benadryl) 25 mg 1X ONCE 04/26/17 17:45 04/26/17 17:46 DC 04/26/17 17:54 25 MG Fentanyl Citrate (Fentanyl 2ml Vial) 75 mcg 1X ONCE 04/26/17 18:15 04/26/17 18:16 DC 04/26/17 18:11 75 MCG Iohexol (Omnipaque 300 Mg/ml) 60 ml 1X ONCE 04/26/17 17:30 04/26/17 17:33 DC 04/26/17 18:20 60 ML Methylprednisolone Sodium Succinate (SOLU-Medrol 125MG VIAL) 125 mg 1X ONCE 04/26/17 17:45 04/26/17 17:46 DC 04/26/17 17:55 125 MG Sodium Chloride 1,000 ml @ 75 mls/hr 1X ONCE 04/26/17 18:30 04/27/17 07:49 04/26/17 19:12 75 MLS/HR Allergies Allergies Allergies Coded Allergies Type Severity Reaction Last Updated Verified codeine Allergy Severe Shortness of Air 02/09/17 Yes oxycodone Allergy Severe soa 02/09/17 Yes Iodinated Contrast- Oral and IV Dye Allergy Intermediate Rash 02/09/17 Yes Penicillins Allergy Intermediate rash 02/09/17 Yes adhesive tape Allergy Mild 02/09/17 Yes Physical Exam Physical Exam Constitutional: Well developed, well nourished, no acute distress, non-toxic appearance. [] HENT: Normocephalic, atraumatic, bilateral external ears normal, oropharynx moist, no oral exudates, nose normal. [] Eyes: PERRLA, EOMI, conjunctiva normal, no discharge. [] Neck: Normal range of motion, no tenderness, supple, no stridor. [] Cardiovascular:Heart rate regular rhythm, no murmur. Negative Homans signs. [] Lungs & Thorax: Respirations nonlabored, coarse rales in right lower lung cornelius.[] Abdomen: Bowel sounds normal, soft, no tenderness. [] Skin: Warm, dry, no erythema, no rash. [] Back: No tenderness. [] Extremities: No tenderness, no cyanosis, no clubbing, ROM intact, no edema. [] Neurologic: Alert and oriented X 3, normal motor function, normal sensory function, no focal deficits noted. [] Psychologic: Affect normal, judgement normal, mood normal. [] Current Patient Data Vital Signs Vital Signs Date Time Temp Pulse Resp B/P (MAP) Pulse Ox O2 Delivery O2 Flow Rate FiO2 04/26/17 20:30 110 22 115/58 (77) 92 Room Air 04/26/17 14:24 98.0 98.0 Lab Values Laboratory Tests Test 04/26/17 14:50 04/26/17 18:05 White Blood Count 56.5 x10^3/uL (4.0-11.0) *H Red Blood Count 4.04 x10^6/uL (3.50-5.40) Hemoglobin 10.8 g/dL (12.0-15.5) L Hematocrit 32.2 % (36.0-47.0) L Mean Corpuscular Volume 80 fL (79-100) Mean Corpuscular Hemoglobin 27 pg (25-35) Mean Corpuscular Hemoglobin Concent 34 g/dL (31-37) Red Cell Distribution Width 24.0 % (11.5-14.5) H Platelet Count 143 x10^3/uL (140-400) Neutrophils (%) (Auto) 93 % (31-73) H Lymphocytes (%) (Auto) 6 % (24-48) L Monocytes (%) (Auto) 2 % (0-9) Eosinophils (%) (Auto) 0 % (0-3) Basophils (%) (Auto) 0 % (0-3) Neutrophils # (Auto) 52.2 x10^3uL (1.8-7.7) H Lymphocytes # (Auto) 3.2 x10^3/uL (1.0-4.8) Monocytes # (Auto) 0.8 x10^3/uL (0.0-1.1) Eosinophils # (Auto) 0.1 x10^3/uL (0.0-0.7) Basophils # (Auto) 0.0 x10^3/uL (0.0-0.2) Segmented Neutrophils % 89 % (35-66) H Band Neutrophils % 4 % (0-9) Lymphocytes % 4 % (24-48) L Monocytes % 2 % (0-10) Eosinophils % 1 % (0-5) Toxic Granulation Mod Toxic Vacuolation Slight Platelet Estimate Adequate (ADEQUATE) Hypochromasia Slight Anisocytosis Mod Prothrombin Time 21.0 SEC (11.7-14.0) H Prothrombin Time INR 1.9 (0.8-1.1) H Sodium Level 139 mmol/L (136-145) Potassium Level 4.1 mmol/L (3.5-5.1) Chloride Level 106 mmol/L (98-107) Carbon Dioxide Level 25 mmol/L (21-32) Anion Gap 8 (6-14) Blood Urea Nitrogen 42 mg/dL (7-20) H Creatinine 1.3 mg/dL (0.6-1.0) H Estimated GFR (Cockcroft-Gault) 40.6 BUN/Creatinine Ratio 32 (6-20) H Glucose Level 95 mg/dL (70-99) Calcium Level 8.2 mg/dL (8.5-10.1) L Total Bilirubin 0.9 mg/dL (0.2-1.0) Aspartate Amino Transferase (AST) 27 U/L (15-37) Alanine Aminotransferase (ALT) 42 U/L (14-59) Alkaline Phosphatase 409 U/L (46-116) H Troponin I Quantitative < 0.017 ng/mL (0.000-0.055) IN-Alt-R-Type Natriuretic Peptide 56 pg/mL (0-124) Total Protein 7.1 g/dL (6.4-8.2) Albumin 2.9 g/dL (3.4-5.0) L Albumin/Globulin Ratio 0.7 (1.0-1.7) L Urine Color Yellow Urine Clarity Clear Urine pH 5.5 Urine Specific Wendel 1.020 Urine Protein Negative mg/dL (NEG-TRACE) Urine Glucose (UA) Negative mg/dL (NEG) Urine Ketones (Stick) Negative mg/dL (NEG) Urine Blood Large (NEG) Urine Nitrite Negative (NEG) Urine Bilirubin Negative (NEG) Urine Urobilinogen Dipstick 0.2 mg/dL (0.2 mg/dL) Urine Leukocyte Esterase Negative (NEG) Urine RBC 11-20 /HPF (0-2) Urine WBC Occ /HPF (0-4) Urine Squamous Epithelial Cells Occ /LPF Urine Bacteria Few /HPF (0-FEW) Urine Mucus Slight /LPF Laboratory Tests 04/26/17 14:50 Laboratory Tests 04/26/17 14:50 EKG EKG [EKG: Sinus rhythm, rate 98, no acute ST-T wave changes, QTC 433.] Radiology/Procedures Radiology/Procedures [Chest XR: CTA: No acute cardiopulmonary process per radiology report] Course & Med Decision Making Course & Med Decision Making Pertinent Labs and Imaging studies reviewed. (See chart for details) Patient with elevated white blood cell count likely secondary to last appeared patient is afebrile with stable vital signs. No clinical source of infection. Patient with chest wall/rib pain pearly controlled. No findings of PE. Suspect chest wall pain may be due to bone marrow production. Attempts made to contact patient's colleges unsuccessful. Care reviewed with Dr. Kenzie Quinteros. Recommendations are for hospitalist admission for pain control and oncology consult in a.m. The decision was made to hold antibiotics given that there is not clinically a source of infection..] Dragon Disclaimer Dragon Disclaimer This electronic medical record was generated, in whole or in part, using a voice recognition dictation system. Departure Departure Impression: Primary Impression: Chest pain Additional Impression: Leukocytosis Disposition: 09 ADMITTED INPATIENT Admitting Physician: Kenzie Quinteros Condition: STABLE Referrals: KENZIE QUINTEROS MD (PCP) Problem Qualifiers VERITOANKUR DAGN Apr 26, 2017 14:44
[2017-04-26] MEDS ORDERED: fentaNYL PF VIAL 100 MCG/2 ML VIAL IV ONE ×3 (14:45→18:15)
[2017-04-26 15:12] LABS: BASO % 0 % (0-3); EOS % 0 % (0-3); HEMATOCRIT 32.2 % (36.0-47.0); HEMOGLOBIN 10.8 g/dL (12.0-15.5); LYMPH # 3.2 x10^3/uL (1.0-4.8); LYMPH % 6 % (24-48); MEAN CORPUSCULAR HEMOGLOBIN 27 pg (25-35); MEAN CORPUSCULAR HGB CONC 34 g/dL (31-37); MEAN CORPUSCULAR VOLUME 80 fL (79-100); MONO % 2 % (0-9); NEUT % 93 % (31-73); PLATELET COUNT 143 x10^3/uL (140-400); RED BLOOD COUNT 4.04 x10^6/uL (3.50-5.40)
[2017-04-26 15:15] LABS: CALCIUM 8.2 mg/dL (8.5-10.1); CREATININE 1.3 mg/dL (0.6-1.0); GFR 40.6; POTASSIUM 4.1 mmol/L (3.5-5.1)
[2017-04-26 15:19] LABS: ALBUMIN 2.9 g/dL (3.4-5.0); ALBUMIN/GLOBULIN RATIO 0.7 (1.0-1.7); TOTAL BILIRUBIN 0.9 mg/dL (0.2-1.0); TOTAL PROTEIN 7.1 g/dL (6.4-8.2)
[2017-04-26 15:23] LABS: WHITE BLOOD COUNT 56.5 x10^3/uL (4.0-11.0)
[2017-04-26 15:26] LABS: INR 1.9 (0.8-1.1)
--- NOTE | 2017-04-26 15:37 | EKG ---
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
--- NOTE | 2017-04-26 15:39 | RAD ---
CHEST AP ONLY Clinical Indication: Chest pain Comparison: Chest radiograph dated 11/17/2015 Findings: Right IJ central venous catheter. Normal lung volume. No focal consolidations. Stable pulmonary vasculature. No pleural effusion or pneumothorax. The cardiomediastinal silhouette is stable. Stable atherosclerotic and tortuous thoracic aorta. No acute osseous abnormality. IMPRESSION: 1. No acute cardiopulmonary process. 2. Right IJ central venous catheter.
[2017-04-26] MEDS ORDERED: IV NORMAL SALINE 1000ML BAG 1,000 ML IV ONE ×2 (17:00→18:30)
[2017-04-26] MEDS ORDERED: IOHEXOL 300 MG/ML 75 ML VIAL IV ONE (17:30)
[2017-04-26] MEDS ORDERED: diphenhydrAMINE 50 MG/ML VIAL IVP ONE (17:45)
[2017-04-26] MEDS ORDERED: methylPREDNISolone SOD SUCC PF 125 MG/2 ML VIAL. IV ONE (17:45)
--- NOTE | 2017-04-26 18:50 | RAD ---
CTA Chest with contrast: Clinical History: SHORTNESS OF BREATH
OMNI 300 60ML, REDUCED DOSE Shortness of breath. Axial helical images of the chest were obtained after the administration of 60 cc of IV Omni 300 and timed appropriately for a pulmonary arterial study. Conventional axial reconstruction was performed in addition to coronal, sagittal and bilateral oblique MIP (maximum intensity projection). This study was ordered to detect possible pulmonary embolism. There are no filling defects to suggest pulmonary embolism. There is left basilar discoid atelectasis with elevation of the left hemidiaphragm There is no mediastinal or hilar lymphadenopathy. The thoracic aorta appears normal. Impression: 1. No evidence of pulmonary embolism. 2. No acute findings. PQRS Compliance Statement: One or more of the following individualized dose reduction techniques were utilized for this examination: 1. Automated exposure control 2. Adjustment of the mA and/or kV according to patient size 3. Use of iterative reconstruction technique Electronically signed by: Michael Scanlon III, MD (04/26/2017 6:46 PM) [facility]
[2017-04-26 18:56] LABS: BILIRUBIN,URINE NEGATIVE (NEG); GLUCOSE,URINE NEGATIVE (NEG); NITRITE,URINE NEGATIVE (NEG); PH,URINE 5.5; PROTEIN,URINE NEGATIVE (NEG-TRACE); UROBILINOGEN,URINE 0.2 mg/dL (0.2 mg/dL)
[2017-04-26 19:12] LABS: BACTERIA,URINE FEW /HPF (0-FEW); SQUAMOUS EPITHELIAL CELL,UR OCC /LPF; WBC,URINE OCC /HPF (0-4)
[2017-04-26 20:30] LABS: % EOS 1 % (0-5); ANISOCYTOSIS MOD; HYPOCHROMIA SLIGHT; PLT ESTIMATE ADEQUATE (ADEQUATE); TOXIC GRANULATION MOD; TOXIC VACUOLATION SLIGHT
[2017-04-26] MEDS ORDERED: IV DEXTROSE 5% - 0.9 % NACL 1,000 ML IV ONE (22:00)
[2017-04-26] MEDS ORDERED: LABETALOL 20 MG/4 ML DISP.SYRIN. IVP PRN (22:00)
[2017-04-26] MEDS ORDERED: NON FORMULARY ITEM (Albuterol Sulfate (Proair Hfa Inhaler) 1 PUFF) INH PRN (23:30)
[2017-04-26] MEDS ORDERED: ALBUTEROL SULFATE 2.5 MG/3 ML NEBU. NEB PRN (23:30)
[2017-04-26 23:35] VITALS: BP 132/73
[2017-04-26] MEDS: HYDROcodone/APAP 5/325MG 1 TAB TABLET PO PRN (23:48)
[2017-04-27] MEDS: HYDROcodone/APAP 5/325MG 1 TAB TABLET PO PRN ×6 (03:10→22:57)
[2017-04-27 03:19] VITALS: BP 125/63
[2017-04-27 07:14] VITALS: BP 132/77
[2017-04-27] MEDS: PANTOPRAZOLE 40 MG TABLET.DR. PO SCH (07:54)
[2017-04-27] MEDS: CHOLECALCIFEROL (VITAMIN D3) 5,000 UNIT CAPSULE PO SCH (07:54)
[2017-04-27] MEDS: MULTIVITAMIN with MINERAL TABLET. PO SCH (07:54)
--- NOTE | 2017-04-27 08:22 | PDOC ---
Provider Note Provider Note [id number] KENZIE STERLING MD Apr 27, 2017 08:22
--- NOTE | 2017-04-27 08:40 | HP ---
ADMIT DATE: 04/27/2017 CHIEF COMPLAINT: Back pain. HISTORY OF PRESENT ILLNESS: A 71-year-old white female who is undergoing chemotherapy for adenocarcinoma of the colon that was resected in January under the supervision of Dr. Sanchez. She has a T3 lesion with known metastatic disease. The CEA was relatively low at 6.5. About a week ago, she developed slightly productive cough and some pain with deep breathing and coughing, but no overt fever, chills, hemoptysis or pleuritic chest pain. ER evaluation revealed a chest x-ray and CT scan, which was clear. She was admitted for further evaluation. She has been receiving Neulasta per Dr. Sanchez and she was having profound leukemoid reaction from that, but otherwise no symptoms. PAST MEDICAL HISTORY: Well documented in the old records. ALLERGIES: LISTED TO OXYCODONE. 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 SOCIAL HISTORY: Quit smoking 20 years ago, has about a 75-eskg-cswj history. She is . Nondrinker. FAMILY HISTORY: Unremarkable. REVIEW OF SYSTEMS: No other complaints. OBJECTIVE: ENT: All within normal limits. NECK: No JVD, nodes or masses or thyroid enlargement. LUNGS: No overt rales, but she does have fine expiratory wheezes with no tachypnea. No dullness is noted. CARDIOVASCULAR: Regular rate. No irregular beat, murmur or tachycardia. ABDOMEN: Benign and unremarkable. EXTREMITIES: Excellent pedal and radial pulses. No clubbing, no cyanosis or edema. NEUROLOGIC: Nonfocal. ASSESSMENT: Pleuritic chest pain, likely secondary to recent cough from some mild underlying COPD. She has leukemoid reaction from Neulasta and is engaged in chemotherapy, now status post right colon resection. PLAN: Sputum culture, DuoNeb, prednisone and Oncology consultation. KENZIE STERLING MD DR: ANGELA/aster JOB#: [id number] / [id number]
[2017-04-27] MEDS ORDERED: CETIRIZINE HCL 10 MG TABLET. PO PRN (09:00)
[2017-04-27] MEDS: predniSONE 20 MG TABLET PO SCH (10:15)
[2017-04-27] MEDS: IPRATRPIUM/ALBUTEROL 0.5/2.5MG 3 ML NEBU. NEB SCH ×3 (11:25→19:52)
[2017-04-27 11:33] VITALS: BP 124/77
[2017-04-27] MEDS ORDERED: LOPERAMIDE 2 MG CAPSULE PO PRN (12:30)
[2017-04-27] MEDS: LOPERAMIDE 2 MG CAPSULE PO SCH (12:40)
[2017-04-27] MEDS ORDERED: ONDA8TAB9 PO (12:49)
[2017-04-27] MEDS: traMADol 50 MG TABLET PO PRN ×2 (14:03→14:52)
[2017-04-27 15:19] VITALS: BP 113/64
[2017-04-27] MEDS ORDERED: WARFARIN 3 MG TABLET. PO SCH (16:00)
[2017-04-27] MEDS ORDERED: WARFARIN 6 MG TABLET. PO SCH (16:00)
[2017-04-27 19:53] VITALS: BP 110/62
--- NOTE | 2017-04-27 19:53 | CONS ---
DATE OF CONSULTATION: 04/27/2017 MEDICAL ONCOLOGY CONSULTATION REPORT CONSULTATION REQUESTED BY: Dr. Jeffrey Quinteros. REASON FOR CONSULTATION: Small intestinal carcinoma, on chemotherapy, now admitted with chest pain. HISTORY OF PRESENT ILLNESS: The patient is a 71-year-old female who has a history of Crohn's disease and she has a history of being treated with Remicade infusions. She has a history of recurrent colon strictures and small-bowel obstructions with history of surgery from the past. She had a hemicolectomy for right colon stricture on 02/09/2017. 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 There was no evidence of lymph node metastasis. She was staged as a T3N0M0, stage 2A adenocarcinoma. She was started on adjuvant chemotherapy with FOLFOX on 03/22/2017. She received cycle #3 of chemotherapy on 04/20/2017. She called the office on 04/26/2017 complaining of significant chest pain. Hence, she was sent to the Emergency Room. She did not have fever, chills, hemoptysis. She underwent a CT angiogram of the chest on 04/26/2017, which revealed no evidence of pulmonary embolism and no acute findings. I was asked to see the patient for further evaluation. Her WBC count on 04/26/2017 was 56.5 with a hemoglobin 10.8 and platelet count 143. PAST MEDICAL HISTORY: Crohn's disease, COPD, recurrent nephrolithiasis, chronic anemia, recurrent small-bowel obstructions, pulmonary embolism in 1973 associated with hysterectomy. 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 She is on chronic anticoagulation. She also has a history of cervical cancer. PAST SURGICAL HISTORY: Two previous small-bowel obstruction surgeries. History of right hemicolectomy on 02/09/2017. Ureteral stent placement. Hysterectomy, tonsillectomy, tubal ligation, cholecystectomy, ERCP and appendectomy. FAMILY HISTORY: No history of any malignancies. There is a history of Crohn's disease in the family. SOCIAL HISTORY: She quit smoking in 1997. REVIEW OF SYSTEMS: A 12-point review of system was performed. Pertinent positives are mentioned in the history of presenting illness. Rest of the system review is negative. PHYSICAL EXAMINATION: GENERAL APPEARANCE: The patient is a 71-year-old female who is in no acute cardiorespiratory distress. VITAL SIGNS: Blood pressure 124/77, temperature 98.1. HEENT: Head: Atraumatic, normocephalic. Eyes: No icterus. NECK: Supple. CHEST: Bilaterally symmetrical. No crepitations or rhonchi heard. HEART: S1, S2 normal. ABDOMEN: Soft, nontender. CENTRAL NERVOUS SYSTEM: No focal deficits. LYMPHATICS: No lymphadenopathy. SKIN: No rashes. PSYCHOLOGIC: Mood and affect are appropriate. MUSCULOSKELETAL: No joint effusions. LABORATORY DATA: WBC 56.5, hemoglobin 10.8, platelet count 143. IMPRESSION AND PLAN: 1. 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 Hence, she was started on adjuvant chemotherapy with FOLFOX on 03/22/2017. She received cycle #3 of treatment on 04/20/17. She does get Neulasta the day after chemotherapy to prevent neutropenia. She will continue to follow up with me upon discharge for cycle #4 of chemotherapy. 2. Leukocytosis, significantly worse due to Neulasta. There are no clinical signs of sepsis. I would continue to monitor. 3. Chest pain. CT angiogram of the chest on 04/26/2017 is negative for pulmonary embolism. JOAQUIN WINSLOW MD DR: ANGIE/aster JOB#: [id number] / [id number] Dr. Jeffrey [place]
[2017-04-27 23:30] VITALS: BP 114/64
[2017-04-28 03:36] VITALS: BP 120/63
[2017-04-28] MEDS: HYDROcodone/APAP 5/325MG 1 TAB TABLET PO PRN (05:26)
[2017-04-28 07:25] VITALS: BP 127/74
[2017-04-28] MEDS: MULTIVITAMIN with MINERAL TABLET. PO SCH (07:44)
[2017-04-28] MEDS: LOPERAMIDE 2 MG CAPSULE PO SCH (07:45)
[2017-04-28] MEDS: CHOLECALCIFEROL (VITAMIN D3) 5,000 UNIT CAPSULE PO SCH (07:45)
[2017-04-28] MEDS: traMADol 50 MG TABLET PO PRN (07:45)
[2017-04-28] MEDS: predniSONE 20 MG TABLET PO SCH (07:45)
[2017-04-28] MEDS: PANTOPRAZOLE 40 MG TABLET.DR. PO SCH (07:45)
[2017-04-28] MEDS: IPRATRPIUM/ALBUTEROL 0.5/2.5MG 3 ML NEBU. NEB SCH ×4 (07:49→20:20)
[2017-04-28] MEDS ORDERED: KETOROLAC 15 MG/ML VIAL. IV PRN (08:45)
--- NOTE | 2017-04-28 08:45 | PDOC ---
Provider Note Provider Note more R post rib pain after cough- tender, less wheezing- will add vantin pending cult, lidoderm, rib xr , more norco, toradol KENZIE STERLING MD Apr 28, 2017 08:45
[2017-04-28 09:55] LABS: PROTHROMBIN TIME PATIENT 47.5 SEC (11.7-14.0)
[2017-04-28 10:01] LABS: INR 5.6 (0.8-1.1)
--- NOTE | 2017-04-28 10:25 | PDOC ---
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 ROS - has rt rib pains Objective Objective Vital Signs Date Time Temp Pulse Resp B/P (MAP) Pulse Ox O2 Delivery O2 Flow Rate FiO2 04/28/17 09:30 Room Air 04/28/17 07:49 94 04/28/17 07:25 98.1 93 20 127/74 (91) 98.1 Physical Exam Heart: Normal S1, Normal S2 General: Alert, Oriented X3 Lungs: Clear to auscultation Neuro: Normal speech Psych/Mental Status: Mental status NL Assessment Assessment Problems Medical Problems: (1) Chest pain Status: Acute (2) Leukocytosis Status: Acute IMPRESSION AND PLAN: 1. 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 Hence, she was started on adjuvant chemotherapy with FOLFOX on 03/22/2017. She received cycle #3 of treatment on 04/20/17. She does get Neulasta the day after chemotherapy to prevent neutropenia. She will continue to follow up with me upon discharge for cycle #4 of chemotherapy. 2. Leukocytosis, significantly worse due to Neulasta. There are no clinical signs of sepsis. I would continue to monitor. 3. Chest pain. CT angiogram of the chest on 04/26/2017 is negative for pulmonary embolism. She reports sharp rt rib pains, Dr Quinteros ordered Rib series. Comment Review of Relevant I have reviewed the following items katarzyna (where applicable) has been applied. Labs Laboratory Tests Test 04/26/17 14:50 04/26/17 18:05 04/28/17 09:00 White Blood Count 56.5 x10^3/uL (4.0-11.0) Red Blood Count 4.04 x10^6/uL (3.50-5.40) Hemoglobin 10.8 g/dL (12.0-15.5) Hematocrit 32.2 % (36.0-47.0) Mean Corpuscular Volume 80 fL (79-100) Mean Corpuscular Hemoglobin 27 pg (25-35) Mean Corpuscular Hemoglobin Concent 34 g/dL (31-37) Red Cell Distribution Width 24.0 % (11.5-14.5) Platelet Count 143 x10^3/uL (140-400) Neutrophils (%) (Auto) 93 % (31-73) Lymphocytes (%) (Auto) 6 % (24-48) Monocytes (%) (Auto) 2 % (0-9) Eosinophils (%) (Auto) 0 % (0-3) Basophils (%) (Auto) 0 % (0-3) Neutrophils # (Auto) 52.2 x10^3uL (1.8-7.7) Lymphocytes # (Auto) 3.2 x10^3/uL (1.0-4.8) Monocytes # (Auto) 0.8 x10^3/uL (0.0-1.1) Eosinophils # (Auto) 0.1 x10^3/uL (0.0-0.7) Basophils # (Auto) 0.0 x10^3/uL (0.0-0.2) Segmented Neutrophils % 89 % (35-66) Band Neutrophils % 4 % (0-9) Lymphocytes % 4 % (24-48) Monocytes % 2 % (0-10) Eosinophils % 1 % (0-5) Toxic Granulation Mod Toxic Vacuolation Slight Platelet Estimate Adequate (ADEQUATE) Hypochromasia Slight Anisocytosis Mod Prothrombin Time 21.0 SEC (11.7-14.0) 47.5 SEC (11.7-14.0) Prothromb Time International Ratio 1.9 (0.8-1.1) 5.6 (0.8-1.1) Sodium Level 139 mmol/L (136-145) Potassium Level 4.1 mmol/L (3.5-5.1) Chloride Level 106 mmol/L (98-107) Carbon Dioxide Level 25 mmol/L (21-32) Anion Gap 8 (6-14) Blood Urea Nitrogen 42 mg/dL (7-20) Creatinine 1.3 mg/dL (0.6-1.0) Estimated GFR (Cockcroft-Gault) 40.6 BUN/Creatinine Ratio 32 (6-20) Glucose Level 95 mg/dL (70-99) Calcium Level 8.2 mg/dL (8.5-10.1) Total Bilirubin 0.9 mg/dL (0.2-1.0) Aspartate Amino Transf (AST/SGOT) 27 U/L (15-37) Alanine Aminotransferase (ALT/SGPT) 42 U/L (14-59) Alkaline Phosphatase 409 U/L (46-116) Troponin I Quantitative < 0.017 ng/mL (0.000-0.055) AZ-Nra-X-Type Natriuretic Peptide 56 pg/mL (0-124) Total Protein 7.1 g/dL (6.4-8.2) Albumin 2.9 g/dL (3.4-5.0) Albumin/Globulin Ratio 0.7 (1.0-1.7) Urine Color Yellow Urine Clarity Clear Urine pH 5.5 Urine Specific [place] 1.020 Urine Protein Negative mg/dL (NEG-TRACE) Urine Glucose (UA) Negative mg/dL (NEG) Urine Ketones (Stick) Negative mg/dL (NEG) Urine Blood Large (NEG) Urine Nitrite Negative (NEG) Urine Bilirubin Negative (NEG) Urine Urobilinogen Dipstick 0.2 mg/dL (0.2 mg/dL) Urine Leukocyte Esterase Negative (NEG) Urine RBC 11-20 /HPF (0-2) Urine WBC Occ /HPF (0-4) Urine Squamous Epithelial Cells Occ /LPF Urine Bacteria Few /HPF (0-FEW) Urine Mucus Slight /LPF Laboratory Tests Test 04/28/17 09:00 Prothrombin Time 47.5 SEC (11.7-14.0) Prothromb Time International Ratio 5.6 (0.8-1.1) Microbiology 04/27/17 - Final, Resulted 04/27/17 - Final, Resulted 04/27/17 - Final, Resulted 04/27/17 Gram Stain Evaluation - Final, Resulted 04/27/17 Sputum Culture, Resulted Pending 04/27/17 Sputum Result 1, Resulted Pending Medications Current Medications Fentanyl Citrate (Fentanyl 2ml Vial) 50 mcg 1X ONCE IV Last administered on 14:57; Start 04/26/17 at 14:45; Stop 04/26/17 at 14:46; Status DC Fentanyl Citrate (Fentanyl 2ml Vial) 50 mcg 1X ONCE IV Last administered on 16:11; Start 04/26/17 at 16:15; Stop 04/26/17 at 16:16; Status DC Sodium Chloride 1,000 ml @ 1,000 mls/hr 1X ONCE IV Last administered on 16:57; Start 04/26/17 at 17:00; Stop 04/26/17 at 17:59; Status DC Iohexol (Omnipaque 300 Mg/ml) 60 ml 1X ONCE IV Last administered on 04/26/17 18:20; Start 04/26/17 at 17:30; Stop 04/26/17 at 17:33; Status DC Methylprednisolone Sodium Succinate (SOLU-Medrol 125MG VIAL) 125 mg 1X ONCE IV Last administered on 04/26/17 17:55; Start 04/26/17 at 17:45; Stop 04/26/17 at 17:46; Status DC Diphenhydramine HCl (Benadryl) 25 mg 1X ONCE IVP Last administered on 17:54; Start 04/26/17 at 17:45; Stop 04/26/17 at 17:46; Status DC Fentanyl Citrate (Fentanyl 2ml Vial) 75 mcg 1X ONCE IV Last administered on 18:11; Start 04/26/17 at 18:15; Stop 04/26/17 at 18:16; Status DC Sodium Chloride 1,000 ml @ 75 mls/hr 1X ONCE IV Last administered on 19:12; Start 04/26/17 at 18:30; Stop 04/27/17 at 07:49; Status DC Labetalol HCl (Normodyne) 10 mg PRN Q6HRS PRN IVP systolic blood pressure greate; Start 04/26/17 at 22:00; Stop 04/28/17 at 08:30; Status DC Dextrose/Sodium Chloride 1,000 ml @ 75 mls/hr 1X ONCE IV ; Start 04/26/17 at 22:00; Stop 04/27/17 at 11:20; Status DC Warfarin Sodium (Coumadin) 6 mg DAILY16 PO ; Start 04/27/17 at 16:00; Stop 04/27 at 16:00; Status DC Non-Formulary Medication 1 puff PRN Q6HRS PRN INH SHORTNESS OF BREATH; Start 04/26/17 at 23:30; Status UNV Vitamin D (Vitamin D3) 5,000 unit DAILY PO Last administered on 04/28/17 07:45 ; Start 04/27/17 at 09:00 Pantoprazole Sodium (Protonix) 40 mg DAILYAC PO Last administered on 04/28/17 07:45; Start 04/27/17 at 07:30 Cetirizine HCl (ZyrTEC) 5 mg PRN DAILY PRN PO ALLERGIES; Start 04/27/17 at 09: 00 Multivitamins (Thera M Plus) 1 tab DAILY PO Last administered on 04/28/17 07: 44; Start 04/27/17 at 09:00 Acetaminophen/ Hydrocodone Bitart (Lortab 5/325) 1 tab PRN Q3HRS PRN PO SEVERE PAIN Last administered on 04/28/17 05:26; Start 04/26/17 at 23:30; Stop at 08:47; Status DC Tramadol HCl (Ultram) 50 mg PRN Q3HRS PRN PO MODERATE PAIN Last administered on 04/28/17 07:45; Start 04/26/17 at 23:30 Albuterol Sulfate (Ventolin Neb Soln) 2.5 mg PRN Q6HRS PRN NEB SHORTNESS OF BREATH; Start 04/26/17 at 23:30 Warfarin Sodium (Coumadin Per Physician) 1 each PRN DAILY PRN MC SEE COMMENTS Last administered on 04/27/17 01:59; Start 04/26/17 at 23:45 Warfarin Sodium (Coumadin) 9 mg DAILY16 PO Last administered on 04/27/17 15:35 ; Start 04/27/17 at 16:00 Albuterol/ Ipratropium (Duoneb) 3 ml RTQID NEB Last administered on 04/28/17 07:49; Start 04/27/17 at 12:00 Prednisone (Prednisone) 40 mg DAILY PO Last administered on 04/28/17 07:45; Start 04/27/17 at 09:00 Loperamide HCl (Imodium) 2 mg DAILY PO Last administered on 04/27/17 12:40; Start 04/27/17 at 13:00 Loperamide HCl (Imodium) 2 mg PRN BID PRN PO DIARRHEA; Start 04/27/17 at 12:30 Lidocaine (Lidoderm) 1 patch DAILY TD ; Start 04/28/17 at 09:00 Ketorolac Tromethamine (Toradol) 15 mg PRN Q6HRS PRN IV PAIN; Start 04/28/17 at 08:45; Stop 05/03/17 at 08:44 Cefpodoxime Proxetil (Vantin) 200 mg BID PO ; Start 04/28/17 at 09:00 Acetaminophen/ Hydrocodone Bitart (Lortab 7.5/325) 1 tab PRN Q4HRS PRN PO PAIN ; Start 04/28/17 at 08:45 Active Scripts Active Ondansetron Hcl 4 Mg Tablet 1 Tab PO PRN Q6HRS Reported Zofran (Ondansetron Hcl) 8 Mg Tablet 2 Tab PO PRN Claritin (Loratadine) 5 Mg/5 Ml Solution 5 Ml PO DAILY PRN Amitiza (Lubiprostone) 8 Mcg Capsule 1 Cap PO BID Multivitamins (Multivitamin) 1 Each Tablet 1 Tab PO DAILY Cyclobenzaprine Hcl 10 Mg Tablet 1 Tab PO TID PRN Proair Hfa Inhaler (Albuterol Sulfate) 8.5 Gm Hfa.aer.ad 1 Puff INH PRN Q6HRS PRN Vitamin D3 (Cholecalciferol (Vitamin D3)) 5,000 Unit Tablet 1 Tab PO DAILY Remicade (Infliximab) 100 Mg Vial 100 Mg IV UD pt gets infusion every [address] Hoover's office, next dose is December 01, 2016 Lansoprazole 30 Mg Capsule. 1 Cap PO DAILY Coumadin (Warfarin Sodium) 6 Mg Tablet 1 Tab PO DAILY Vitals/I & O Vital Sign - Last 24 Hours 04/27/17 04/27/17 04/27/17 04/27/17 11:27 11:33 12:47 14:03 Temp 98.1 98.1 Pulse 88 Resp 20 B/P (MAP) 124/77 (93) Pulse Ox 97 94 O2 Delivery Room Air Room Air Room Air 04/27/17 04/27/17 04/27/17 04/27/17 14:52 15:09 15:19 15:35 Temp 98.3 98.3 Pulse 91 Resp 20 B/P (MAP) 113/64 (80) Pulse Ox 97 93 O2 Delivery Room Air Room Air Room Air Room Air 04/27/17 04/27/17 04/27/17 04/27/17 18:27 19:48 19:52 19:53 Temp 98.2 98.2 Pulse 99 Resp 16 B/P (MAP) 110/62 (78) Pulse Ox 94 92 O2 Delivery Room Air Room Air Room Air Room Air 04/27/17 04/27/17 04/28/17 04/28/17 22:57 23:30 03:36 05:26 Temp 98.0 97.8 98.0 97.8 Pulse 109 83 Resp 18 16 16 20 B/P (MAP) 114/64 (81) 120/63 (82) Pulse Ox 93 92 O2 Delivery Room Air Room Air Room Air Room Air 04/28/17 04/28/17 04/28/17 04/28/17 06:26 07:00 07:14 07:25 Temp 98.1 98.1 Pulse 87 93 Resp 18 20 B/P (MAP) 127/74 (91) Pulse Ox 94 O2 Delivery Room Air Room Air Room Air 04/28/17 04/28/17 04/28/17 07:45 07:49 09:30 Pulse Ox 94 O2 Delivery Room Air Room Air Room Air JOAQUIN WINSLOW MD Apr 28, 2017 10:25
[2017-04-28] MEDS: CEFPODOXIME PROXETIL 100 MG TABLET. PO SCH ×2 (10:29→20:47)
[2017-04-28] MEDS: LIDOCAINE (700MG/PATCH) PATCH. TD SCH (10:29)
[2017-04-28] MEDS: HYDROcodone/APAP 7.5/325MG 1 TAB TABLET PO PRN ×3 (10:29→23:29)
[2017-04-28 11:05] VITALS: BP 115/72
--- NOTE | 2017-04-28 11:23 | RAD ---
Right RIBS, 2 views, 04/28/2017: History: Posterior rib discomfort after coughing. The bony structures are demineralized. No rib fracture is identified. There is a mild upper thoracic scoliosis with associated multilevel degenerative change. IMPRESSION: No acute right rib abnormality is detected.
[2017-04-28 14:46] VITALS: BP 115/64
[2017-04-28 19:45] VITALS: BP 116/71
[2017-04-28 23:45] VITALS: BP 118/71
[2017-04-29 03:08] VITALS: BP 116/64
[2017-04-29] MEDS: IPRATRPIUM/ALBUTEROL 0.5/2.5MG 3 ML NEBU. NEB SCH ×4 (07:00→20:15)
[2017-04-29 07:11] VITALS: BP 133/71
[2017-04-29] MEDS: HYDROcodone/APAP 7.5/325MG 1 TAB TABLET PO PRN ×3 (08:08→21:10)
--- NOTE | 2017-04-29 08:38 | PDOC ---
Provider Note Provider Note still R post pleuritic pain, some wheezes, xr neg re fx, sputum cult pending- cont same, maybe dc in am, check labs re inr KENZIE STERLING MD Apr 29, 2017 08:38
[2017-04-29] MEDS: LOPERAMIDE 2 MG CAPSULE PO SCH (09:00)
[2017-04-29] MEDS: CHOLECALCIFEROL (VITAMIN D3) 5,000 UNIT CAPSULE PO SCH (09:32)
[2017-04-29] MEDS: PANTOPRAZOLE 40 MG TABLET.DR. PO SCH (09:32)
[2017-04-29] MEDS: CEFPODOXIME PROXETIL 100 MG TABLET. PO SCH ×2 (09:32→21:03)
[2017-04-29] MEDS: LIDOCAINE (700MG/PATCH) PATCH. TD SCH (09:33)
[2017-04-29] MEDS: MULTIVITAMIN with MINERAL TABLET. PO SCH (09:33)
[2017-04-29] MEDS: predniSONE 20 MG TABLET PO SCH (09:33)
[2017-04-29 10:52] VITALS: BP 110/62
[2017-04-29] MEDS: traMADol 50 MG TABLET PO PRN (12:10)
--- NOTE | 2017-04-29 12:11 | PDOC ---
SURGICAL PROGRESS NOTE Subjective Pt admitted with c/o pleuritic chest pain. No obvious abnormality identified and plans for pt to d/c home in AM. Pt has not been on TPN while here in the hospital, and has increased appetite. Question arises regarding continuing TPN. [email or web address] reviewed. 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 Given this, pt will more then likely require physical science technician TPN. Pt is asked to renew TPN with her HH agency upon D/C. Any issues with this and she is encouraged to f/u. Will consider TPN adjustment in several months pending completion of chemotherapy. Thanks! Vital Signs Vital Signs Date Time Temp Pulse Resp B/P (MAP) Pulse Ox O2 Delivery O2 Flow Rate FiO2 04/29/17 10:52 98.4 90 18 110/62 (78) 92 Room Air 98.4 I&O Intake and Output 04/30/17 07:00 Intake Total 290 ml Output Total 600 ml Balance -310 ml Intake Oral 290 ml Output Urine Total 600 ml Labs Laboratory Tests Test 04/28/17 09:00 Prothrombin Time 47.5 SEC (11.7-14.0) Prothromb Time International Ratio 5.6 (0.8-1.1) Problem List Problems Medical Problems: (1) Chest pain Status: Acute (2) Leukocytosis Status: Acute Problems: RANJANA PEDROZA MD Apr 29, 2017 12:11
[2017-04-29 13:54] LABS: BASO % 0 % (0-3); EOS % 0 % (0-3); HEMATOCRIT 30.7 % (36.0-47.0); HEMOGLOBIN 9.8 g/dL (12.0-15.5); LYMPH # 0.4 x10^3/uL (1.0-4.8); LYMPH % 2 % (24-48); MEAN CORPUSCULAR HEMOGLOBIN 27 pg (25-35); MEAN CORPUSCULAR HGB CONC 32 g/dL (31-37); MEAN CORPUSCULAR VOLUME 83 fL (79-100); MONO % 3 % (0-9); NEUT % 95 % (31-73); PLATELET COUNT 155 x10^3/uL (140-400); RED BLOOD COUNT 3.68 x10^6/uL (3.50-5.40); RED CELL DISTRIBUTION WIDTH 24.1 % (11.5-14.5); WHITE BLOOD COUNT 18.5 x10^3/uL (4.0-11.0)
[2017-04-29 14:15] LABS: INR 5.4 (0.8-1.1)
[2017-04-29 14:17] VITALS: BP 122/67
[2017-04-29 15:38] LABS: ANISOCYTOSIS SLIGHT; OVALOCYTES OCC; PLT ESTIMATE ADEQUATE (ADEQUATE); POLYCHROMASIA SLIGHT; TOXIC GRANULATION SLIGHT
--- NOTE | 2017-04-29 16:21 | PDOC ---
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 ROS - has CP Objective Objective Vital Signs Date Time Temp Pulse Resp B/P (MAP) Pulse Ox O2 Delivery O2 Flow Rate FiO2 04/29/17 15:48 18 92 Room Air 04/29/17 14:17 98.0 89 122/67 (85) 98.0 Intake and Output 04/30/17 07:00 Intake Total 290 ml Output Total 600 ml Balance -310 ml Intake Oral 290 ml Output Urine Total 600 ml Physical Exam Heart: Normal S1, Normal S2 General: Alert, Oriented X3, No acute distress Lungs: Clear to auscultation Neuro: Normal speech Psych/Mental Status: Mental status NL Assessment Assessment Problems Medical Problems: (1) Chest pain Status: Acute (2) Leukocytosis Status: Acute IMPRESSION AND PLAN: 1. 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 Hence, she was started on adjuvant chemotherapy with FOLFOX on 03/22/2017. She received cycle #3 of treatment on 04/20/17. She does get Neulasta the day after chemotherapy to prevent neutropenia. She will continue to follow up with me upon discharge for cycle #4 of chemotherapy. 2. Leukocytosis, significantly worse due to Neulasta. There are no clinical signs of sepsis. I would continue to monitor. 3. Chest pain. CT angiogram of the chest on 04/26/2017 is negative for pulmonary embolism. She reports sharp rt rib pains, and Rib series normal. Pleuritic CP suspected. 4. Appreciate surgical input - cont home TPN I d/w DR Quinteros Comment Review of Relevant I have reviewed the following items katarzyna (where applicable) has been applied. Labs Laboratory Tests Test 04/28/17 09:00 04/29/17 13:45 Prothrombin Time 47.5 SEC (11.7-14.0) 46.0 SEC (11.7-14.0) Prothromb Time International Ratio 5.6 (0.8-1.1) 5.4 (0.8-1.1) White Blood Count 18.5 x10^3/uL (4.0-11.0) Red Blood Count 3.68 x10^6/uL (3.50-5.40) Hemoglobin 9.8 g/dL (12.0-15.5) Hematocrit 30.7 % (36.0-47.0) Mean Corpuscular Volume 83 fL (79-100) Mean Corpuscular Hemoglobin 27 pg (25-35) Mean Corpuscular Hemoglobin Concent 32 g/dL (31-37) Red Cell Distribution Width 24.1 % (11.5-14.5) Platelet Count 155 x10^3/uL (140-400) Neutrophils (%) (Auto) 95 % (31-73) Lymphocytes (%) (Auto) 2 % (24-48) Monocytes (%) (Auto) 3 % (0-9) Eosinophils (%) (Auto) 0 % (0-3) Basophils (%) (Auto) 0 % (0-3) Neutrophils # (Auto) 17.6 x10^3uL (1.8-7.7) Lymphocytes # (Auto) 0.4 x10^3/uL (1.0-4.8) Monocytes # (Auto) 0.5 x10^3/uL (0.0-1.1) Eosinophils # (Auto) 0.0 x10^3/uL (0.0-0.7) Basophils # (Auto) 0.0 x10^3/uL (0.0-0.2) Segmented Neutrophils % 94 % (35-66) Band Neutrophils % 1 % (0-9) Lymphocytes % 3 % (24-48) Monocytes % 2 % (0-10) Toxic Granulation Slight Platelet Estimate Adequate (ADEQUATE) Large Platelets Occ Polychromasia Slight Anisocytosis Slight Ovalocytes Occ Laboratory Tests Test 04/29/17 13:45 White Blood Count 18.5 x10^3/uL (4.0-11.0) Red Blood Count 3.68 x10^6/uL (3.50-5.40) Hemoglobin 9.8 g/dL (12.0-15.5) Hematocrit 30.7 % (36.0-47.0) Mean Corpuscular Volume 83 fL (79-100) Mean Corpuscular Hemoglobin 27 pg (25-35) Mean Corpuscular Hemoglobin Concent 32 g/dL (31-37) Red Cell Distribution Width 24.1 % (11.5-14.5) Platelet Count 155 x10^3/uL (140-400) Neutrophils (%) (Auto) 95 % (31-73) Lymphocytes (%) (Auto) 2 % (24-48) Monocytes (%) (Auto) 3 % (0-9) Eosinophils (%) (Auto) 0 % (0-3) Basophils (%) (Auto) 0 % (0-3) Neutrophils # (Auto) 17.6 x10^3uL (1.8-7.7) Lymphocytes # (Auto) 0.4 x10^3/uL (1.0-4.8) Monocytes # (Auto) 0.5 x10^3/uL (0.0-1.1) Eosinophils # (Auto) 0.0 x10^3/uL (0.0-0.7) Basophils # (Auto) 0.0 x10^3/uL (0.0-0.2) Segmented Neutrophils % 94 % (35-66) Band Neutrophils % 1 % (0-9) Lymphocytes % 3 % (24-48) Monocytes % 2 % (0-10) Toxic Granulation Slight Platelet Estimate Adequate (ADEQUATE) Large Platelets Occ Polychromasia Slight Anisocytosis Slight Ovalocytes Occ Prothrombin Time 46.0 SEC (11.7-14.0) Prothromb Time International Ratio 5.4 (0.8-1.1) Microbiology 04/27/17 - Final, Resulted 04/27/17 - Final, Resulted 04/27/17 - Final, Resulted 04/27/17 Gram Stain Evaluation - Final, Resulted 04/27/17 Sputum Culture - Preliminary, Resulted 04/27/17 Sputum Result 1 - Final, Resulted Medications Current Medications Fentanyl Citrate (Fentanyl 2ml Vial) 50 mcg 1X ONCE IV Last administered on 14:57; Start 04/26/17 at 14:45; Stop 04/26/17 at 14:46; Status DC Fentanyl Citrate (Fentanyl 2ml Vial) 50 mcg 1X ONCE IV Last administered on 16:11; Start 04/26/17 at 16:15; Stop 04/26/17 at 16:16; Status DC Sodium Chloride 1,000 ml @ 1,000 mls/hr 1X ONCE IV Last administered on 16:57; Start 04/26/17 at 17:00; Stop 04/26/17 at 17:59; Status DC Iohexol (Omnipaque 300 Mg/ml) 60 ml 1X ONCE IV Last administered on 04/26/17 18:20; Start 04/26/17 at 17:30; Stop 04/26/17 at 17:33; Status DC Methylprednisolone Sodium Succinate (SOLU-Medrol 125MG VIAL) 125 mg 1X ONCE IV Last administered on 04/26/17 17:55; Start 04/26/17 at 17:45; Stop 04/26/17 at 17:46; Status DC Diphenhydramine HCl (Benadryl) 25 mg 1X ONCE IVP Last administered on 17:54; Start 04/26/17 at 17:45; Stop 04/26/17 at 17:46; Status DC Fentanyl Citrate (Fentanyl 2ml Vial) 75 mcg 1X ONCE IV Last administered on 18:11; Start 04/26/17 at 18:15; Stop 04/26/17 at 18:16; Status DC Sodium Chloride 1,000 ml @ 75 mls/hr 1X ONCE IV Last administered on 19:12; Start 04/26/17 at 18:30; Stop 04/27/17 at 07:49; Status DC Labetalol HCl (Normodyne) 10 mg PRN Q6HRS PRN IVP systolic blood pressure greate; Start 04/26/17 at 22:00; Stop 04/28/17 at 08:30; Status DC Dextrose/Sodium Chloride 1,000 ml @ 75 mls/hr 1X ONCE IV ; Start 04/26/17 at 22:00; Stop 04/27/17 at 11:20; Status DC Warfarin Sodium (Coumadin) 6 mg DAILY16 PO ; Start 04/27/17 at 16:00; Stop 04/27 at 16:00; Status DC Non-Formulary Medication 1 puff PRN Q6HRS PRN INH SHORTNESS OF BREATH; Start 04/26/17 at 23:30; Status UNV Vitamin D (Vitamin D3) 5,000 unit DAILY PO Last administered on 04/29/17 09:32 ; Start 04/27/17 at 09:00 Pantoprazole Sodium (Protonix) 40 mg DAILYAC PO Last administered on 04/29/17 09:32; Start 04/27/17 at 07:30 Cetirizine HCl (ZyrTEC) 5 mg PRN DAILY PRN PO ALLERGIES; Start 04/27/17 at 09: 00 Multivitamins (Thera M Plus) 1 tab DAILY PO Last administered on 04/29/17 09: 33; Start 04/27/17 at 09:00 Acetaminophen/ Hydrocodone Bitart (Lortab 5/325) 1 tab PRN Q3HRS PRN PO SEVERE PAIN Last administered on 04/28/17 05:26; Start 04/26/17 at 23:30; Stop at 08:47; Status DC Tramadol HCl (Ultram) 50 mg PRN Q3HRS PRN PO MODERATE PAIN Last administered on 04/29/17 12:10; Start 04/26/17 at 23:30 Albuterol Sulfate (Ventolin Neb Soln) 2.5 mg PRN Q6HRS PRN NEB SHORTNESS OF BREATH; Start 04/26/17 at 23:30 Warfarin Sodium (Coumadin Per Physician) 1 each PRN DAILY PRN MC SEE COMMENTS Last administered on 04/29/17 11:15; Start 04/26/17 at 23:45 Warfarin Sodium (Coumadin) 9 mg DAILY16 PO Last administered on 04/27/17 15:35 ; Start 04/27/17 at 16:00; Stop 04/28/17 at 11:44; Status DC Albuterol/ Ipratropium (Duoneb) 3 ml RTQID NEB Last administered on 04/29/17 14:57; Start 04/27/17 at 12:00 Prednisone (Prednisone) 40 mg DAILY PO Last administered on 04/29/17 09:33; Start 04/27/17 at 09:00 Loperamide HCl (Imodium) 2 mg DAILY PO Last administered on 04/27/17 12:40; Start 04/27/17 at 13:00 Loperamide HCl (Imodium) 2 mg PRN BID PRN PO DIARRHEA; Start 04/27/17 at 12:30 Lidocaine (Lidoderm) 1 patch DAILY TD Last administered on 04/29/17 09:33; Start 04/28/17 at 09:00 Ketorolac Tromethamine (Toradol) 15 mg PRN Q6HRS PRN IV PAIN; Start 04/28/17 at 08:45; Stop 05/03/17 at 08:44 Cefpodoxime Proxetil (Vantin) 200 mg BID PO Last administered on 04/29/17 09: 32; Start 04/28/17 at 09:00 Acetaminophen/ Hydrocodone Bitart (Lortab 7.5/325) 1 tab PRN Q4HRS PRN PO PAIN Last administered on 04/29/17 15:48; Start 04/28/17 at 08:45 Active Scripts Active Ondansetron Hcl 4 Mg Tablet 1 Tab PO PRN Q6HRS Reported Zofran (Ondansetron Hcl) 8 Mg Tablet 2 Tab PO PRN Claritin (Loratadine) 5 Mg/5 Ml Solution 5 Ml PO DAILY PRN Amitiza (Lubiprostone) 8 Mcg Capsule 1 Cap PO BID Multivitamins (Multivitamin) 1 Each Tablet 1 Tab PO DAILY Cyclobenzaprine Hcl 10 Mg Tablet 1 Tab PO TID PRN Proair Hfa Inhaler (Albuterol Sulfate) 8.5 Gm Hfa.aer.ad 1 Puff INH PRN Q6HRS PRN Vitamin D3 (Cholecalciferol (Vitamin D3)) 5,000 Unit Tablet 1 Tab PO DAILY Remicade (Infliximab) 100 Mg Vial 100 Mg IV UD pt gets infusion every [address] Hoover's office, next dose is December 01, 2016 Lansoprazole 30 Mg Capsule. 1 Cap PO DAILY Coumadin (Warfarin Sodium) 6 Mg Tablet 1 Tab PO DAILY Vitals/I & O Vital Sign - Last 24 Hours 04/28/17 04/28/17 04/28/17 04/28/17 19:45 19:59 20:20 23:29 Temp 98.8 98.8 Pulse 91 Resp 18 B/P (MAP) 116/71 (86) Pulse Ox 92 93 93 O2 Delivery Room Air Room Air Room Air Room Air 04/28/17 04/29/17 04/29/17 04/29/17 23:45 03:08 07:03 07:11 Temp 98.6 97.8 98.1 98.6 97.8 98.1 Pulse 83 88 98 Resp 16 16 17 B/P (MAP) 118/71 (87) 116/64 (81) 133/71 (91) Pulse Ox 90 92 90 92 O2 Delivery Room Air Room Air Room Air Room Air 04/29/17 04/29/17 04/29/17 04/29/17 08:00 08:08 09:33 10:50 Resp 18 18 Pulse Ox 92 92 90 O2 Delivery Room Air Room Air Room Air Room Air 04/29/17 04/29/17 04/29/17 04/29/17 10:52 12:10 13:10 14:17 Temp 98.4 98.0 98.4 98.0 Pulse 90 89 Resp 18 20 18 19 B/P (MAP) 110/62 (78) 122/67 (85) Pulse Ox 92 92 92 92 O2 Delivery Room Air Room Air Room Air Room Air 04/29/17 04/29/17 14:58 15:48 Resp 18 Pulse Ox 92 O2 Delivery Room Air Room Air Intake and Output 04/29/17 04/29/17 04/30/17 15:00 23:00 07:00 Intake Total 290 ml Output Total 600 ml Balance -310 ml JOAQUIN WINSLOW MD Apr 29, 2017 16:21
[2017-04-29 19:52] VITALS: BP 103/73
[2017-04-29] MEDS: guaiFENesin DM 200MG/20MG 10 ML SYRUP PO PRN (21:03)
[2017-04-29 23:53] VITALS: BP 115/68
[2017-04-30] MEDS: guaiFENesin DM 200MG/20MG 10 ML SYRUP PO PRN ×2 (01:51→13:28)
[2017-04-30] MEDS: HYDROcodone/APAP 7.5/325MG 1 TAB TABLET PO PRN ×3 (01:51→13:29)
[2017-04-30 03:41] VITALS: BP 151/76
[2017-04-30 06:45] VITALS: BP 131/72
[2017-04-30] MEDS: IPRATRPIUM/ALBUTEROL 0.5/2.5MG 3 ML NEBU. NEB SCH ×2 (08:07→12:30)
--- NOTE | 2017-04-30 08:37 | DISCH ---
DISCHARGE INSTRUCTIONS Condition on Discharge Condition on Discharge: Stable Activity After Discharge Activity Instructions for Disc: No restrictions Diet after Discharge Diet after Discharge: Regular Follow-Up Follow up with: dr deejay Hinkle w KENZIE STERLING MD Apr 30, 2017 08:37
[2017-04-30] MEDS: LOPERAMIDE 2 MG CAPSULE PO SCH (08:39)
[2017-04-30] MEDS: MULTIVITAMIN with MINERAL TABLET. PO SCH (08:41)
[2017-04-30] MEDS: CEFPODOXIME PROXETIL 100 MG TABLET. PO SCH (08:41)
[2017-04-30] MEDS: LIDOCAINE (700MG/PATCH) PATCH. TD SCH (08:41)
[2017-04-30] MEDS: PANTOPRAZOLE 40 MG TABLET.DR. PO SCH (08:41)
[2017-04-30] MEDS: predniSONE 20 MG TABLET PO SCH (08:42)
--- NOTE | 2017-04-30 08:43 | PDOC ---
Provider Note Provider Note [id number] KENZIE STERLING MD Apr 30, 2017 08:43
[2017-04-30] MEDS: CHOLECALCIFEROL (VITAMIN D3) 5,000 UNIT CAPSULE PO SCH (08:46)
--- NOTE | 2017-04-30 09:47 | DS ---
DATE OF DISCHARGE: 04/30/2017 HOSPITAL SUMMARY: A 71-year-old white female came in with right-sided pleuritic parathoracic pain. Chest x-ray and CTA were clear. Rib x-ray showed no fracture. White count was 56,000 and after her neulasta last came down to 18,000 and hemoglobin was stable around 10. INR was low at 1.9 and then two days later was up to 5.6 after one dose of warfarin. Sputum is growing out Staph aureus, sensitivity is pending. She was treated with prednisone, respiratory treatments and DuoNeb and Vantin was added and she is clinically improved. It was felt the pain is chest wall in nature, not pleuritic and she is afebrile. Oxygen saturations are good and she is comfortable to be followed as an outpatient. FINAL DIAGNOSES: 1. Acute bacterial bronchitis secondary to Staphylococcus aureus. 2. Exacerbation of chronic obstructive pulmonary disease with secondary bronchospasm. 3. Intercostal muscle strain, secondary back pain. 4. Leukemoid reaction from neulasta. 5. Anemia of chronic disease. OPERATIONS, PROCEDURES AND COMPLICATIONS: None. CONSULTATIONS: Dr. Sanchez and Dr. Burr. DISPOSITION: She will stay off warfarin for now as risk greater than benefit given her high INR. Her INR is likely to drop when she gets back on her TPN with the addition of vitamin K to the regimen. She will take 1 week of Keflex 500 mg 3 times a day, pending sputum culture and ulcer if she has MRSA. Prednisone taper over 6 days. Continue Ventolin inhaler, may have to add Spiriva or similar product if she has continued symptoms of bronchospasm. Her immunosuppressed state of chemotherapy and Crohn's disease treatments make her more likely to have exacerbation of respiratory infections in the future. KENZIE STERLING MD DR: ANGELA/aster JOB#: [id number] / [id number]
[2017-04-30 11:03] VITALS: BP 109/65
--- NOTE | 2017-04-30 11:29 | PDOC ---
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 Hence, she was started on adjuvant chemotherapy with FOLFOX on 03/22/2017. She received cycle #3 of treatment on 04/20/17. She does get Neulasta the day after chemotherapy to prevent neutropenia. She will continue to follow up with me upon discharge for cycle #4 of chemotherapy. 2. Leukocytosis, significantly worse due to Neulasta. There are no clinical signs of sepsis. I would continue to monitor. 3. Chest pain. CT angiogram of the chest on 04/26/2017 is negative for pulmonary embolism. She reports sharp rt rib pains, and Rib series normal. Pleuritic CP suspected. 4. Appreciate surgical input - cont home TPN I d/w DR Quinteros Ok to d/c home. f/u next week for chemo Comment Review of Relevant I have reviewed the following items katarzyna (where applicable) has been applied. Labs Laboratory Tests Test 04/29/17 13:45 White Blood Count 18.5 x10^3/uL (4.0-11.0) Red Blood Count 3.68 x10^6/uL (3.50-5.40) Hemoglobin 9.8 g/dL (12.0-15.5) Hematocrit 30.7 % (36.0-47.0) Mean Corpuscular Volume 83 fL (79-100) Mean Corpuscular Hemoglobin 27 pg (25-35) Mean Corpuscular Hemoglobin Concent 32 g/dL (31-37) Red Cell Distribution Width 24.1 % (11.5-14.5) Platelet Count 155 x10^3/uL (140-400) Neutrophils (%) (Auto) 95 % (31-73) Lymphocytes (%) (Auto) 2 % (24-48) Monocytes (%) (Auto) 3 % (0-9) Eosinophils (%) (Auto) 0 % (0-3) Basophils (%) (Auto) 0 % (0-3) Neutrophils # (Auto) 17.6 x10^3uL (1.8-7.7) Lymphocytes # (Auto) 0.4 x10^3/uL (1.0-4.8) Monocytes # (Auto) 0.5 x10^3/uL (0.0-1.1) Eosinophils # (Auto) 0.0 x10^3/uL (0.0-0.7) Basophils # (Auto) 0.0 x10^3/uL (0.0-0.2) Segmented Neutrophils % 94 % (35-66) Band Neutrophils % 1 % (0-9) Lymphocytes % 3 % (24-48) Monocytes % 2 % (0-10) Toxic Granulation Slight Platelet Estimate Adequate (ADEQUATE) Large Platelets Occ Polychromasia Slight Anisocytosis Slight Ovalocytes Occ Prothrombin Time 46.0 SEC (11.7-14.0) Prothromb Time International Ratio 5.4 (0.8-1.1) Laboratory Tests Test 04/29/17 13:45 White Blood Count 18.5 x10^3/uL (4.0-11.0) Red Blood Count 3.68 x10^6/uL (3.50-5.40) Hemoglobin 9.8 g/dL (12.0-15.5) Hematocrit 30.7 % (36.0-47.0) Mean Corpuscular Volume 83 fL (79-100) Mean Corpuscular Hemoglobin 27 pg (25-35) Mean Corpuscular Hemoglobin Concent 32 g/dL (31-37) Red Cell Distribution Width 24.1 % (11.5-14.5) Platelet Count 155 x10^3/uL (140-400) Neutrophils (%) (Auto) 95 % (31-73) Lymphocytes (%) (Auto) 2 % (24-48) Monocytes (%) (Auto) 3 % (0-9) Eosinophils (%) (Auto) 0 % (0-3) Basophils (%) (Auto) 0 % (0-3) Neutrophils # (Auto) 17.6 x10^3uL (1.8-7.7) Lymphocytes # (Auto) 0.4 x10^3/uL (1.0-4.8) Monocytes # (Auto) 0.5 x10^3/uL (0.0-1.1) Eosinophils # (Auto) 0.0 x10^3/uL (0.0-0.7) Basophils # (Auto) 0.0 x10^3/uL (0.0-0.2) Segmented Neutrophils % 94 % (35-66) Band Neutrophils % 1 % (0-9) Lymphocytes % 3 % (24-48) Monocytes % 2 % (0-10) Toxic Granulation Slight Platelet Estimate Adequate (ADEQUATE) Large Platelets Occ Polychromasia Slight Anisocytosis Slight Ovalocytes Occ Prothrombin Time 46.0 SEC (11.7-14.0) Prothromb Time International Ratio 5.4 (0.8-1.1) Microbiology 04/27/17 - Final, Resulted 04/27/17 - Final, Resulted 04/27/17 - Final, Resulted 04/27/17 Gram Stain Evaluation - Final, Resulted 04/27/17 Sputum Culture - Preliminary, Resulted 04/27/17 Sputum Result 1 - Final, Resulted Medications Current Medications Fentanyl Citrate (Fentanyl 2ml Vial) 50 mcg 1X ONCE IV Last administered on 14:57; Start 04/26/17 at 14:45; Stop 04/26/17 at 14:46; Status DC Fentanyl Citrate (Fentanyl 2ml Vial) 50 mcg 1X ONCE IV Last administered on 16:11; Start 04/26/17 at 16:15; Stop 04/26/17 at 16:16; Status DC Sodium Chloride 1,000 ml @ 1,000 mls/hr 1X ONCE IV Last administered on 16:57; Start 04/26/17 at 17:00; Stop 04/26/17 at 17:59; Status DC Iohexol (Omnipaque 300 Mg/ml) 60 ml 1X ONCE IV Last administered on 04/26/17 18:20; Start 04/26/17 at 17:30; Stop 04/26/17 at 17:33; Status DC Methylprednisolone Sodium Succinate (SOLU-Medrol 125MG VIAL) 125 mg 1X ONCE IV Last administered on 04/26/17 17:55; Start 04/26/17 at 17:45; Stop 04/26/17 at 17:46; Status DC Diphenhydramine HCl (Benadryl) 25 mg 1X ONCE IVP Last administered on 17:54; Start 04/26/17 at 17:45; Stop 04/26/17 at 17:46; Status DC Fentanyl Citrate (Fentanyl 2ml Vial) 75 mcg 1X ONCE IV Last administered on 18:11; Start 04/26/17 at 18:15; Stop 04/26/17 at 18:16; Status DC Sodium Chloride 1,000 ml @ 75 mls/hr 1X ONCE IV Last administered on 19:12; Start 04/26/17 at 18:30; Stop 04/27/17 at 07:49; Status DC Labetalol HCl (Normodyne) 10 mg PRN Q6HRS PRN IVP systolic blood pressure greate; Start 04/26/17 at 22:00; Stop 04/28/17 at 08:30; Status DC Dextrose/Sodium Chloride 1,000 ml @ 75 mls/hr 1X ONCE IV ; Start 04/26/17 at 22:00; Stop 04/27/17 at 11:20; Status DC Warfarin Sodium (Coumadin) 6 mg DAILY16 PO ; Start 04/27/17 at 16:00; Stop 04/27 at 16:00; Status DC Non-Formulary Medication 1 puff PRN Q6HRS PRN INH SHORTNESS OF BREATH; Start 04/26/17 at 23:30; Status UNV Vitamin D (Vitamin D3) 5,000 unit DAILY PO Last administered on 04/30/17 08:46 ; Start 04/27/17 at 09:00 Pantoprazole Sodium (Protonix) 40 mg DAILYAC PO Last administered on 04/30/17 08:41; Start 04/27/17 at 07:30 Cetirizine HCl (ZyrTEC) 5 mg PRN DAILY PRN PO ALLERGIES; Start 04/27/17 at 09: 00 Multivitamins (Thera M Plus) 1 tab DAILY PO Last administered on 04/30/17 08: 41; Start 04/27/17 at 09:00 Acetaminophen/ Hydrocodone Bitart (Lortab 5/325) 1 tab PRN Q3HRS PRN PO SEVERE PAIN Last administered on 04/28/17 05:26; Start 04/26/17 at 23:30; Stop at 08:47; Status DC Tramadol HCl (Ultram) 50 mg PRN Q3HRS PRN PO MODERATE PAIN Last administered on 04/29/17 12:10; Start 04/26/17 at 23:30 Albuterol Sulfate (Ventolin Neb Soln) 2.5 mg PRN Q6HRS PRN NEB SHORTNESS OF BREATH; Start 04/26/17 at 23:30 Warfarin Sodium (Coumadin Per Physician) 1 each PRN DAILY PRN MC SEE COMMENTS Last administered on 04/29/17 11:15; Start 04/26/17 at 23:45 Warfarin Sodium (Coumadin) 9 mg DAILY16 PO Last administered on 04/27/17 15:35 ; Start 04/27/17 at 16:00; Stop 04/28/17 at 11:44; Status DC Albuterol/ Ipratropium (Duoneb) 3 ml RTQID NEB Last administered on 04/30/17 08:07; Start 04/27/17 at 12:00 Prednisone (Prednisone) 40 mg DAILY PO Last administered on 04/30/17 08:42; Start 04/27/17 at 09:00 Loperamide HCl (Imodium) 2 mg DAILY PO Last administered on 04/27/17 12:40; Start 04/27/17 at 13:00 Loperamide HCl (Imodium) 2 mg PRN BID PRN PO DIARRHEA; Start 04/27/17 at 12:30 Lidocaine (Lidoderm) 1 patch DAILY TD Last administered on 04/30/17 08:41; Start 04/28/17 at 09:00 Ketorolac Tromethamine (Toradol) 15 mg PRN Q6HRS PRN IV PAIN; Start 04/28/17 at 08:45; Stop 05/03/17 at 08:44 Cefpodoxime Proxetil (Vantin) 200 mg BID PO Last administered on 04/30/17 08: 41; Start 04/28/17 at 09:00 Acetaminophen/ Hydrocodone Bitart (Lortab 7.5/325) 1 tab PRN Q4HRS PRN PO PAIN Last administered on 04/30/17 08:42; Start 04/28/17 at 08:45 Guaifenesin (Robitussin Dm) 10 ml PRN QID PRN PO COUGH Last administered on 01:51; Start 04/29/17 at 20:45 Active Scripts Active Ondansetron Hcl 4 Mg Tablet 1 Tab PO PRN Q6HRS Reported Zofran (Ondansetron Hcl) 8 Mg Tablet 2 Tab PO PRN Claritin (Loratadine) 5 Mg/5 Ml Solution 5 Ml PO DAILY PRN Amitiza (Lubiprostone) 8 Mcg Capsule 1 Cap PO BID Multivitamins (Multivitamin) 1 Each Tablet 1 Tab PO DAILY Cyclobenzaprine Hcl 10 Mg Tablet 1 Tab PO TID PRN Proair Hfa Inhaler (Albuterol Sulfate) 8.5 Gm Hfa.aer.ad 1 Puff INH PRN Q6HRS PRN Vitamin D3 (Cholecalciferol (Vitamin D3)) 5,000 Unit Tablet 1 Tab PO DAILY Remicade (Infliximab) 100 Mg Vial 100 Mg IV UD pt gets infusion every [address] Hoover's office, next dose is December 01, 2016 Lansoprazole 30 Mg Capsule. 1 Cap PO DAILY Coumadin (Warfarin Sodium) 6 Mg Tablet 1 Tab PO DAILY Vitals/I & O Vital Sign - Last 24 Hours 04/29/17 04/29/17 04/29/17 04/29/17 12:10 13:10 14:17 14:58 Temp 98.0 98.0 Pulse 89 Resp 20 18 19 B/P (MAP) 122/67 (85) Pulse Ox 92 92 92 O2 Delivery Room Air Room Air Room Air Room Air 04/29/17 04/29/17 04/29/17 04/29/17 15:48 19:52 20:00 20:16 Temp 98.8 98.8 Pulse 89 Resp 18 16 B/P (MAP) 103/73 (83) Pulse Ox 92 91 O2 Delivery Room Air Room Air Room Air Room Air 04/29/17 04/29/17 04/30/1704/30/17 21:10 23:53 01:51 03:41 Temp 98.1 97.7 98.1 97.7 Pulse 89 93 Resp 20 16 20 16 B/P (MAP) 115/68 (84) 151/76 (101) Pulse Ox 96 92 96 91 O2 Delivery Room Air Room Air Room Air 04/30/17 04/30/17 04/30/17 04/30/17 06:45 08:00 08:08 08:42 Temp 97.9 97.9 Pulse 86 Resp 19 19 B/P (MAP) 131/72 (91) Pulse Ox 92 94 94 O2 Delivery Room Air Room Air Room Air Room Air 04/30/17 04/30/17 09:42 11:03 Temp 98.4 98.4 Pulse 76 Resp 18 20 B/P (MAP) 109/65 (80) Pulse Ox 94 95 O2 Delivery Room Air Room Air JOAQUIN WINSLOW MD Apr 30, 2017 11:29
== END 2017-04-30 13:50 | disposition home or self-care (01) | DRG 191 ==
LOC: ER 13:53 → 6 SOUTH 21:30 → OBSVTOIN 21:32
PROVIDERS: ADMIT Family Medicine; ATTEND Family Medicine
DX: J44.0 Chronic obstructive pulmonary disease with (acute) lower respiratory infection (principal); C17.2 Malignant neoplasm of ileum; B95.61 Methicillin susceptible Staphylococcus aureus infection as the cause of diseases classified elsewhere; D63.8 Anemia in other chronic diseases classified elsewhere; D72.823 Leukemoid reaction; J20.8 Acute bronchitis due to other specified organisms; J44.1 Chronic obstructive pulmonary disease with (acute) exacerbation; S29.011A Strain of muscle and tendon of front wall of thorax, initial encounter; T45.8X5A Adverse effect of other primarily systemic and hematological agents, initial encounter; M19.90 Unspecified osteoarthritis, unspecified site; Z86.718 Personal history of other venous thrombosis and embolism; Z90.49 Acquired absence of other specified parts of digestive tract; Z90.710 Acquired absence of both cervix and uterus; Z98.51 Tubal ligation status; Z90.89 Acquired absence of other organs; Z91.041 Radiographic dye allergy status; Z88.0 Allergy status to penicillin; Z88.8 Allergy status to other drugs, medicaments and biological substances; Z91.048 Other nonmedicinal substance allergy status; Z87.891 Personal history of nicotine dependence; Z79.01 Long term (current) use of anticoagulants; Z85.41 Personal history of malignant neoplasm of cervix uteri; Z86.711 Personal history of pulmonary embolism; R07.81 Pleurodynia
CPT/HCPCS: 36415; 71010; 71100; 71275; 80053; 81001; 83880; 84484; 85007; 85025; 85610; 87070; 87186; 87205; 93005; 94250; 94640; 94760; 96361; 96374; 96375; 96376; G0379; J1200; J2930; J3010; J7030; J7512; J7620; Q9967; 99285-25

== ENCOUNTER → 2017-05-11 | Outpatient (CLI) | payer MEDICARE ==
[2017-04-30 11:03] VITALS: BP 109/65
[~2017-05-11] MED LIST changes: +ONDA8TAB9 PO
--- NOTE | 2017-05-11 17:02 | RAD ---
Indication malignancy associated with the small intestine. Right-sided posterior rib pain for 3 weeks. Right foot fracture 6 years ago. Left shoulder fracture 20 years ago. Whole body bone scan was performed. 26 mCi of technetium labeled MDP was administered. No prior bone scan is available. There is some increased activity in the knees and feet which is likely degenerative. There is increased activity in 3 upper, posterior, right ribs virtually pathognomonic for traumatic injury. Some increased activity about the right wrist is probably degenerative. Normal activity is seen in the kidneys and urinary bladder. No definite evidence of skeletal metastatic disease is seen. IMPRESSION: Uptake in 3 right posterior ribs compatible with healing fractures. Multiple areas of uptake in joints which is likely degenerative. No definite evidence of skeletal metastatic disease
== END | disposition home or self-care (01) ==
LOC: NM 09:32
PROVIDERS: ATTEND Internal Medicine Hematology & Oncology
DX: C17.9 Malignant neoplasm of small intestine, unspecified (principal); S22.31XD Fracture of one rib, right side, subsequent encounter for fracture with routine healing; X58.XXXD Exposure to other specified factors, subsequent encounter
CPT/HCPCS: 78306; 96374; A9503

== ENCOUNTER → 2017-06-08 | Outpatient (CLI) | payer MEDICARE ==
[~2017-06-08] MED LIST changes: +IOHEXOL 240 MG/ML 50ML VIAL. PO ONE; +IOHEXOL 300 MG/ML 100ML VIAL. IV ONE; +diphenhydrAMINE HCL 25 MG CAPSULE PO ONE
--- NOTE | 2017-06-08 11:35 | RAD ---
CT chest, abdomen and pelvis 06/08/2017 Clinical indication: Small intestinal carcinoma. Comparison: CTA chest 04/26/2017, CT abdomen and pelvis without contrast 02/11/2017, CT abdomen and pelvis without contrast 12/07/2016. Technique: Multiple CT images of the chest, abdomen and pelvis were obtained following the intravenous administration of 60 mL Omnipaque 300. PQRS Compliance Statement: One or more of the following individualized dose reduction techniques were utilized for this examination: 1. Automated exposure control 2. Adjustment of the mA and/or kV according to patient size 3. Use of iterative reconstruction technique Findings: Chest: Heart size is normal without Seamus pericardial effusion. The thoracic aorta is normal in caliber with trace scattered calcite atheromatous disease in three-vessel coronary artery calcifications are noted. There is a right IJ central venous catheter terminating in the low SVC. No axillary, mediastinal or hilar lymphadenopathy. There is mild linear atelectasis or scarring in the lingula. There is mild centrilobular emphysema most prominent in the upper lobes. There is a stable 0.4 cm noncalcified nodule in the subpleural right upper lobe series 2/image 37. Stable cluster of groundglass nodular opacities in the anterior left upper lobe series 2/image 28. No significant change in additional sub-5 mm noncalcified nodules scattered throughout both lungs. No pleural effusion or pneumothorax. There are no destructive osseous lesions. Abdomen and pelvis: Liver is normal in size and morphology. There are few subcentimeter hepatic hypodensities in the left hepatic lobe which are too small to definitively characterize. [employer] hypodensity and peripheral hepatic segment 4A measures 0.4 cm series 4/image 21. Additional hypodensities seen in hepatic segment 2 series 4/image 18. Prior cholecystectomy. There is stable mild extrahepatic bile or ductal dilatation with gradual tapering to the ampulla, likely reservoir effect from prior cholecystectomy. Spleen is upper limits of normal in size. Adrenal glands and pancreas are unremarkable. Scattered areas of cortical scarring throughout the kidneys. There is no significant change and nonobstructive stone burden throughout both kidneys with numerous calculi. There are 3 adjacent nonobstructive stones in the right renal pelvis each measuring approximately 7 mm as seen on series 4/image 46. No hydronephrosis. No significant change in adjacent right renal cysts. There are additional lateral renal hypodensities which are too small to definitively characterize. Abdominal aorta is normal in caliber with mild calcite atheromatous disease. Major portal, splenic and visualized. Mesenteric veins are patent. No retroperitoneal or mesenteric lymphadenopathy. There are postsurgical changes of a right hemicolectomy and small bowel resection. There is mild dilatation of the distal small bowel loops just proximal to the enterocolic anastomosis in the right lower quadrant of the abdomen with widely patent anastomosis. There are scattered areas of peritoneal stranding, improved from prior examination. No retroperitoneal or mesenteric lymphadenopathy. Urinary bladder is decompressed. Prior hysterectomy with the vaginal cuff unremarkable. No iliac or inguinal lymphadenopathy. No pelvic free fluid. Prior midline laparotomy. Bilateral L5 spondylolysis and grade 1 L5 on S1 anterolisthesis. There is a stable striated lucency at L4 vertebral body, likely benign intraosseous hemangioma. There are no destructive osseous lesions. Impression: Chest: 1. No significant change in subcentimeter bilateral noncalcified pulmonary nodules, indeterminate. Continued CT follow-up is recommended. 2. No thoracic lymphadenopathy. 3. Mild pulmonary emphysema. Abdomen and pelvis: 1. Postsurgical changes of bowel resection and enterocolic anastomosis with resolution of perianastomotic fluid collection and improvement in peritoneal stranding. 2. There are a few subcentimeter left hepatic hypodensities which are too small to definitely characterize. Attention on follow-up imaging is recommended. 3. No evidence of local recurrence or abdominopelvic larisa metastatic disease. 4. No significant change in bilateral nonobstructive stone burden including clustered stones in the right renal pelvis.
== END ==
LOC: CT 08:44
PROVIDERS: ATTEND Internal Medicine Hematology & Oncology
DX: J43.9 Emphysema, unspecified (principal); N20.0 Calculus of kidney; Z98.890 Other specified postprocedural states
CPT/HCPCS: 71260; 74177; Q0163; Q9966; Q9967

== ENCOUNTER → 2017-09-16 | Outpatient (CLI) | payer MEDICARE ==
[~2017-09-16] MED LIST changes: -BIFI4CAP PO; -CALC500T30 PO; -CEFP200T PO; -CHOL100013 PO; -CHOL500016 PO; -CYCL10TA2 PO; -FERR325T58 PO; -FERR325T72 PO; -GUAI12003 PO; +HEPARIN PF 500 UNIT/5 ML DISP.SYRIN. IV; -INFL100V IV; +IOHEXOL 240 MG/ML 50ML VIAL. PO; -IOHEXOL 240 MG/ML 50ML VIAL. PO ONE; +IOHEXOL 300 MG/ML 100ML VIAL. IV; -IOHEXOL 300 MG/ML 100ML VIAL. IV ONE; -LANS30CA PO; -LISI-338 PO; -LORA10TA3 PO; -LORA5SOL7 PO; -LOSA25TA4 PO; -LUBI8CAP4 PO; -METH4TAB2 PO; -MORP15TA PO; -MULT1TAB52 PO; -ONDA4TAB11 PO; -ONDA8TAB9 PO; -PROAIR HFA8.5 GM INH; -RANI150T2 PO; -VENTOLIN HFA18 GM INH; -WARF6TAB49 PO; +diphenhydrAMINE HCL 25 MG CAPSULE PO; -diphenhydrAMINE HCL 25 MG CAPSULE PO ONE
== END | disposition home or self-care (01) ==
LOC: CT 08:50
DX: C17.9 Malignant neoplasm of small intestine, unspecified (principal); I25.10 Atherosclerotic heart disease of native coronary artery without angina pectoris; N20.0 Calculus of kidney; R91.8 Other nonspecific abnormal finding of lung field; Z90.49 Acquired absence of other specified parts of digestive tract; Z87.891 Personal history of nicotine dependence
CPT/HCPCS: 71260; 74177; Q0163; Q9966; Q9967

== ENCOUNTER 2017-12-07 16:44 | Emergency (ER) | payer MEDICARE ==
[2017-12-07] MEDS: DIPHTH,PERTUSS(ACELL),TET TOX 0.5 ML DISP.SYRIN. VAX IM (18:27)
[2017-12-07] MEDS: HYDROcodone/APAP 5/325MG 1 TAB TABLET PO (18:28)
== END 2017-12-07 19:30 | disposition home or self-care (01) ==
LOC: ER 16:44
DX: S00.83XA Contusion of other part of head, initial encounter (principal); J45.909 Unspecified asthma, uncomplicated; Z87.442 Personal history of urinary calculi; Z87.891 Personal history of nicotine dependence; I25.10 Atherosclerotic heart disease of native coronary artery without angina pectoris; K50.90 Crohn's disease, unspecified, without complications; Z88.0 Allergy status to penicillin; Z88.5 Allergy status to narcotic agent; Z88.8 Allergy status to other drugs, medicaments and biological substances; Z91.041 Radiographic dye allergy status; W18.09XA Striking against other object with subsequent fall, initial encounter; Y93.89 Activity, other specified; Y99.8 Other external cause status; Y92.89 Other specified places as the place of occurrence of the external cause
CPT/HCPCS: 70450; 70486; 71250; 72125; 90471; 90715; 99284-25

== ENCOUNTER → 2017-12-08 | Outpatient (CLI) | payer MEDICARE ==
[~2017-12-08] MED LIST changes: +CONTRAST GIVEN MC; -HEPARIN PF 500 UNIT/5 ML DISP.SYRIN. IV; -IOHEXOL 240 MG/ML 50ML VIAL. PO; -IOHEXOL 300 MG/ML 100ML VIAL. IV; -diphenhydrAMINE HCL 25 MG CAPSULE PO
[2017-12-08] MEDS: IOHEXOL 240 MG/ML 50ML VIAL. PO (09:30)
== END | disposition home or self-care (01) ==
LOC: CT 09:01
DX: C17.2 Malignant neoplasm of ileum (principal); J43.9 Emphysema, unspecified; N20.0 Calculus of kidney; N26.1 Atrophy of kidney (terminal); M43.17 Spondylolisthesis, lumbosacral region; I87.8 Other specified disorders of veins
CPT/HCPCS: 71250; 74176; Q9966

== ENCOUNTER → 2018-03-15 | Outpatient (CLI) | payer MEDICARE ==
[2017-12-07 18:18] VITALS: BP 153/72
[~2018-03-15] MED LIST changes: +BIFI4CAP PO; +CALC500T30 PO; +CEFP200T PO; +CHOL100013 PO; +CHOL500016 PO; -CONTRAST GIVEN MC; +CYCL10TA2 PO; +FERR325T58 PO; +FERR325T72 PO; +GUAI12003 PO; +HYDR-971 PO; +INFL100V IV; +LANS30CA PO; +LISI-338 PO; +LORA10TA3 PO; +LORA5SOL7 PO; +LOSA25TA4 PO; +LUBI8CAP4 PO; +METH4TAB2 PO; +MORP15TA PO; +MULT1TAB52 PO; +ONDA4TAB11 PO; +ONDA8TAB9 PO; +PROAIR HFA8.5 GM INH; +RANI150T2 PO; +VENTOLIN HFA18 GM INH; +WARF6TAB49 PO
--- NOTE | 2018-03-15 17:15 | RAD ---
CT of the chest, abdomen and pelvis without contrast, 03/15/2018: HISTORY: Worsening abdominal pain, typhlitis and pneumatosis Multidetector CT imaging was performed following oral ingestion of contrast. No IV contrast was administered as requested. Comparison is made to a study from 12/08/2017. There is emphysema with parenchymal scarring. There are several tiny nodules in both lungs. The most prominent of these measures 5-6 mm and lies laterally in the right middle lobe as seen on axial image #34 of series #2. The coronal image shows that this opacity is slightly elongated in configuration. A couple of other much smaller nodules are present laterally in the right lower chest. These findings are unchanged. No new or enlarging pulmonary nodule or mass is seen. There is no evidence of pleural fluid. There is mild calcific plaquing of the thoracic aorta. Moderate coronary artery calcifications are present. No mediastinal adenopathy is evident. The unopacified liver is unremarkable. The gallbladder is surgically absent. Prominence of the common hepatic duct is unchanged and is probably secondary to the postcholecystectomy state. No pancreatic abnormality is seen. The spleen is unremarkable. The left kidney is somewhat atrophic and scarred. The left ureteral stent has been removed. There is only tiny residual parenchymal calcification on the left. There are multiple unchanged right renal cysts, with minimal mural calcifications. Moderate aortic calcific plaquing is present without evidence of aneurysm. No abdominal or pelvic adenopathy is seen. The uterus is surgically absent. The oral contrast material has reached the colon. The distal small bowel loops are at the upper limits of normal in size. No mass or significant mural thickening is seen. No colonic inflammation is evident. There is a moderate amount of stool in the colon extending through the rectosigmoid. No free fluid or free air is evident in the abdomen or pelvis. There is bilateral spondylolysis at L5 with a moderate spondylolisthesis at L5-S1. There are mild to moderate scattered degenerative changes throughout the spine. IMPRESSION: 1. Emphysema with parenchymal scarring. 2. Stable tiny bilateral pulmonary nodules. 3. Moderate coronary artery calcifications. 4. Additional miscellaneous chronic findings as described above. 5. Increased stool in the distal colon and rectum. 6. Otherwise no acute abdominal or pelvic abnormality is detected. PQRS Compliance Statement: One or more of the following individualized dose reduction techniques were utilized for this examination: 1. Automated exposure control 2. Adjustment of the mA and/or kV according to patient size 3. Use of iterative reconstruction technique Electronically signed by: Kenney Taylor MD (03/15/2018 5:12 PM) [facility]
== END | disposition home or self-care (01) ==
LOC: CT 08:42
PROVIDERS: ATTEND Internal Medicine Hematology & Oncology
DX: J43.8 Other emphysema (principal); I25.10 Atherosclerotic heart disease of native coronary artery without angina pectoris; M43.17 Spondylolisthesis, lumbosacral region; N28.1 Cyst of kidney, acquired; I12.9 Hypertensive chronic kidney disease with stage 1 through stage 4 chronic kidney disease, or unspecified chronic kidney disease; N18.3 Chronic kidney disease, stage 3 (moderate); K21.9 Gastro-esophageal reflux disease without esophagitis; R91.8 Other nonspecific abnormal finding of lung field; Z86.2 Personal history of diseases of the blood and blood-forming organs and certain disorders involving the immune mechanism; Z86.711 Personal history of pulmonary embolism; Z86.718 Personal history of other venous thrombosis and embolism; Z87.19 Personal history of other diseases of the digestive system; Z87.891 Personal history of nicotine dependence; Z85.41 Personal history of malignant neoplasm of cervix uteri; Z90.49 Acquired absence of other specified parts of digestive tract; Z90.710 Acquired absence of both cervix and uterus; Z68.30 Body mass index [BMI] 30.0-30.9, adult; Z82.49 Family history of ischemic heart disease and other diseases of the circulatory system
CPT/HCPCS: 71250; 74176